=== PATIENT | male | born 1935 | race Caucasian/White ===

== ENCOUNTER 2018-05-17 05:26 | Inpatient (IN) | payer MEDICARE, BC ==
[2018-05-17] VITALS (23 sets, daily range): BP systolic 89–146; BP diastolic 53–97; PULSE 51–83; RESP 13–29; Ht 167.6 cm; Wt 84.0 kg
[~2018-05-17] VITALS: Ht 167.6 cm; Wt 84.0 kg
[2018-05-17] MEDS ORDERED: DOPamine-D5W 1.6 MG/ML 250 ML IV SCH (06:30)
[2018-05-17] MEDS ORDERED: ONDANSETRON 4 MG INJ IV PRN (06:30)
[2018-05-17] MEDS ORDERED: ACETAMINOPHEN 325 MG TAB PO PRN (06:30)
[2018-05-17] MEDS: DEXTROSE 5%-0.45% NACL 1,000 ML IV SCH ×2 (06:42→21:36)
[2018-05-17] MEDS: PANTOPRAZOLE 40 MG INJ IV SCH (06:44)
[2018-05-17] MEDS ORDERED: DEXTROSE 50% 50 ML SYRINGE IV PRN ×2 (07:00)
[2018-05-17] MEDS ORDERED: GLUCAGON 1 MG INJ IM PRN (07:00)
[2018-05-17] MEDS ORDERED: GLUCOSE GEL 15 GRAM TUBE BUCCAL PRN (07:00)
[2018-05-17] MEDS ORDERED: GLUCOSE GEL 15 GRAM TUBE PO PRN ×2 (07:00)
[2018-05-17] MEDS ORDERED: INSULIN ASPART [NOVOLOG] 3 ML PEN SC SCH (07:35)
[2018-05-17] MEDS: ALBUTEROL 0.083% (NEB) 2.5 MG/3 ML AMP HHN SCH ×4 (08:41→20:02)
[2018-05-17] MEDS ORDERED: COLLAGENASE 5 GM (UD JAR) TOP SCH ×2 (09:00)
[2018-05-17] MEDS: ALLOPURINOL 100 MG TAB PO SCH (09:00)
[2018-05-17] MEDS: CHOLECALCIFEROL 1,000 UNIT TAB PO SCH (09:00)
[2018-05-17] MEDS: TOBRAMYCIN 0.3% 5 ML OPH BOTH EYES SCH ×2 (09:20→21:37)
[2018-05-17] MEDS: MEROPENEM 1 GM/50ML(PMX) 50 ML IVPB SCH ×2 (09:21→21:33)
[2018-05-17] MEDS: ACETAZOLAMIDE 500 MG INJ IV SCH (09:21)
[2018-05-17] MEDS: BALSAM PERU/CASTOR OIL 60 GM TUBE TOP SCH ×2 (09:22→21:37)
--- NOTE | 2018-05-17 09:41 | CONS ---
Date/Time of Note Date/Time of Note DATE: 05/17/18 TIME: 09:37 Assessment/Plan Assessment/Plan Additional Assessment/Plan Chest x-ray showing cardiomegaly without any overt infiltrative process. Sternal wires are identified. ABG showing mild hypercapnic respiratory failure with hypoxemia. Patient is currently on BiPAP with backup rate of 18, 20/5 50% FiO2. Chem-7 panel and culture results are pending. Assessment and recommendations; 1. [facility] for [facility]cardia with history of atrial fibrillation with slow ventricular response. 2. Advanced dementia. 3. Difficult to rule out early sepsis. Patient currently on appropriate empiric antimicrobial regimen. 4. Hypercapnia and hypoxemia. Currently on BiPAP with adequate PO2 on ABG. 5. History of gout. 6. Mild anemia and thrombocytopenia. 7. Prior CABG. 8. Cardiomyopathy. Continue current supportive care. Further recommendations once other lab resul ts are obtained. CODE STATUS needs to be addressed with the family. Prognosis appears poor. Consultation Date/Type/Reason Admit Date/Time May 17, 2018 at 05:26 Date of Consultation: May 17, 2018 Type of Consult Pulmonary/critical care History of presenting illness; patient is a 83-year-old male who was transferred over to ICU from [facility] for hypoxemia and hypotension. Patient also developed bradycardia with history of atrial fibrillation. By the time I saw him, patient is on BiPAP and because of advanced dementia is unable to give any history whatsoever by himself. History was obtained from medical records. Past medical history; 1. Advanced dementia. 2. Likely underlying cardiomyopathy. 3. Prior CABG. 4. History of gout. Medications; reviewed. Allergies; none. Family history, social history, occupational history is not available. Review of system; unable to be obtained. General exam; elderly male, on BiPAP, unresponsive, currently in no distress. Past Medical History Medications Current Medications Dopamine HCl/ Dextrose 250 ml @ 6.405 mls/ hr TITRATE IV ; Start 05/17/18 at 06:30 Acetaminophen (Tylenol Tab) 650 mg Q6H PRN PO MILD PAIN(1-3)OR ELEVATED TEMP; Start 05/17/18 at 06:30 Acetazolamide (Diamox) 500 mg DAILY IV Last administered on 05/17/18at 09:21; Admin Dose 500 MG; Start 05/17/18 at 09:00 Albuterol (Proventil 0.083% (Neb)) 2.5 mg Q4H RESP THERAPY HHN Last administered on 05/17/18at 08:41; Admin Dose 2.5 MG; Start 05/17/18 at 09:00 Allopurinol (Zyloprim) 200 mg DAILY PO ; Start 05/17/18 at 09:00 Atorvastatin Calcium (Lipitor) 10 mg HS PO ; Start 05/17/18 at 21:00 Cholecalciferol (Vitamin D) 5,000 unit DAILY PO ; Start 05/17/18 at 09:00 Collagenase (Santyl) 1 applic DAILY TOP Last administered on 05/17/18at 09:21; Admin Dose 1 APPLIC; Start 05/17/18 at 09:00 Collagenase (Santyl) 1 applic BID TOP Last administered on 05/17/18at 09:21; Admin Dose 1 APPLIC; Start 05/17/18 at 09:00 Dextrose/Sodium Chloride 1,000 ml @ 65 mls/hr [id number] IV Last administered on 05/17/18at 06:42; Admin Dose 65 MLS/HR; Start 05/17/18 at 06:30 Diagnostic Test (Pha) (Accu-Chek) 1 ea 02 XX ; Start 05/18/18 at 02:00 Insulin Aspart (Novolog Insulin Pen) NOVOLOG *MILD* ALGORITHM WITH MEALS BEDTIME SC ; Start 05/17/18 at 07:35 Levothyroxine Sodium (Synthroid) 137 mcg DAILY@06 PO ; Start 05/18/18 at 06:00 Meropenem/Sodium Chloride 50 ml @ 100 mls/hr Q12 IVPB Last administered on 05/17/18at 09:21; Admin Dose 100 MLS/HR; Start 05/17/18 at 09:00 Ondansetron HCl (Zofran Inj) 4 mg Q4H PRN IV NAUSEA AND/OR VOMITING; Start 05/17/18 at 06:30 Pantoprazole (Protonix Iv) 40 mg DAILY@06 IV Last administered on 05/17/18at 06:44; Admin Dose 40 MG; Start 05/17/18 at 06:00 Tobramycin Sulfate (Tobrex 0.3% Oph Drop) 1 drop BID BOTH EYES Last administered on 05/17/18at 09:20; Admin Dose 1 DROP; Start 05/17/18 at 09:00 Miscellaneous Information 1 ea NOTE XX ; Start 05/17/18 at 07:00 Glucose (Glutose) 15 gm Q15M PRN PO DECREASED GLUCOSE; Start 05/17/18 at 07:00 Glucose (Glutose) 22.5 gm Q15M PRN PO DECREASED GLUCOSE; Start 05/17/18 at 07:00 Dextrose (D50w Syringe) 25 ml Q15M PRN IV DECREASED GLUCOSE; Start 05/17/18 at 07:00 Dextrose (D50w Syringe) 50 ml Q15M PRN IV DECREASED GLUCOSE; Start 05/17/18 at 07:00 Glucagon (Glucagen) 1 mg Q15M PRN IM DECREASED GLUCOSE; Start 05/17/18 at 07:00 Glucose (Glutose) 15 gm Q15M PRN BUCCAL DECREASED GLUCOSE; Start 05/17/18 at 07:00 Allergies: Coded Allergies: No Known Allergy (Unverified , 05/13/18) Exam/Review of Systems Vital Signs Vitals Vital Signs Date Temp Pulse Resp B/P (MAP) Pulse Ox O2 O2 Flow FiO2 Time Delivery Rate 05/17/18 51 08:14 05/17/18 100 50 06:46 05/17/18 97.6 20 146/97 BIPAP 06:00 (113) Exam H EENT exam; supple neck, positive JVD. Patient is on BiPAP. Edentulous. No neck masses. Pupils are small bilaterally. Chest exam; diminished breath sounds throughout. S1-S2 audible, irregular rhythm. Bradycardic. There is a well-healed sternal scar. Abdomen exam; soft, no organomegaly. Bowel sounds are audible. Extremity exam; no edema. Patient does have patchy ecchymosis. 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 DANA YODER May 17, 2018 09:41
--- NOTE | 2018-05-17 11:21 | NUR ---
SS NOTE: CONSULT RECEIVED ORDER FOR POLST ASSISTANCE. PT TRANSFERRED FROM [facility]. CURRENTLY ON BIPAP, ONLY RESPONDS TO PAIN. SW REVIEWED PT'S RECORDS. PT WAS AT [facility]. PRIOR TO GOING TO [facility]. KARLY CALLED AND SPOKE WITH RUBY AT [facility] WHO REPORTED THAT PT WAS AT THEIR FACILITY FOR 2 DAYS. STATED THAT PT WENT FROM THEM TO [facility] AND FROM THERE TO [facility]. PER RUBY, PT WAS A RESIDENT OF [facility] PRIOR TO GOING TO [facility]. KARLY CALLED AND SPOKE WITH SUNIL AT [facility] . PER SUNIL, PT HAD BEEN LIVING AT THEIR FACILITY FOR ABOUT 7-8 MONTHS. REPORTED THAT PT WAS ON A W/C BUT SOMEWHAT INDEPENDENT. REPORTED THAT HE WAS ALERT AND ORIENTED AT THAT TIME AND ABLE TO MAKE HIS OWN DECISIONS. SUNIL REPORTED THAT PT DID NOT HAVE FAMILY AND THE ONLY PERSON INVOLVED WAS HIS FRIEND, ELISA . KARLY CALLED AND SPOKE WITH PT'S FRIEND, ELISA. SHE REPORTED THAT SHE HAS KNOWN PT FOR OVER 10 YRS. STATED THAT PT DOES NOT HAVE LIVING RELATIVES. ELISA REPORTED THAT PT LIVED IN HIS OWN HOME BUT IT WAS INFESTED SO HE HAD TO MOVE OUT AND THEY HAD TO CLEAN OUT EVERYTHING. SHE REPORTED THAT PT HAD AN AHCD BUT DURING THE CLEAN OUT, SHE THINKS THE WORKERS MIGHT HAVE LOST THE AHCD. SHE REPORTED THAT BOTH HER AND HER SISTER HAVE HAD COMMUNICATIONS WITH PT RE: HIS WISHES WHERE PT HAS STATED THAT HE WOULD NOT WANT RESUSCITATION OR TO LIVE ON MACHINES. ELISA ALSO REPORTED AN INCIDENT WHERE SHE HAD TOLD PT ABOUT BEING ON NG TUBE AFTER HER OWN SURGERY AND PT HAD TOLD HER THAT HE WOULD NOT WANT THAT EITHER. KARLY THANKED ELISA FOR HER INVOLVEMENT WITH PT'S CARE AND THE INFO PROVIDED. INFORMED HER THAT KARLY WILL UPDATE DR. LANG ABOUT PT'S HISTORY AND THAT MD AND SW MIGHT CONTINUE TO CONTACT HER IF NEEDED. ELISA REPORTED THAT SHE IS WILLING TO BE INVOLVED IN PT'S CARE AND WILL REMAIN AVAILABLE NEEDED. KARLY UPDATED BILLY BLACK. DR. LANG WILL BE CONTACTED BY RN TO DISCUSS ABOUT PT'S CODE STATUS.
[2018-05-17] MEDS: INSULIN ASPART [NOVOLOG] 3 ML PEN SC SCH ×3 (13:00→21:42)
[2018-05-17] MEDS ORDERED: DIGOXIN 0.125 MG TAB GTB SCH (13:00)
--- NOTE | 2018-05-17 14:06 | NUR ---
WOUND CONSULT: 83 year old male admitted from [place] with Bradycardia per record. History of atrial fibrillation, dementia, GOUT, s/p CABG, anemia, and thrombocytopenia per medical history. WBC 7.5. H&H 10.7/35.1. Plt 145. Albumin 2.7. Patient on low air loss surface. Scott cath. Nasal cannula. ASSESSMENT: - Ecchymosis to bilateral hips, thigh, lateral abdomen, back and abdomen and shoulder and upper sacrum. - Coccyx stage 3 pressure injury. Condition present on admission. 0.6cmx0.3cmx0.3cm. Full thickness wound with visible pale yellow subcutaneous tissue. Periwound maceration. Scant serous drainage. No odor. - Left anterior lower extremity stage 2 pressure injury questionable IRMA hose related. [id number]. Flatten blister. No drainage. No odor. - Left posterior lower extremity stage 2 pressure injury questionable IRMA hose related. 1.5cmx1.5mtm8vh. Flatten blister. No drainage. No odor. - Left lateral lower extremity stage 2 pressure injury questionable IRMA hose related. 0.5cmx0.9aoh5tn. Flatten blister. No drainage. No odor. - Right posterior thigh stage 2 pressure injury njury questionable IRMA hose related. Linear partial thickness wound. No drainage. No odor. - Left knee bruise. - Left back of ear incision with sutures. Dry, clean, and intact. RECOMMENDATIONS: - Coccyx stage 3: Cleanse with normal saline. Pat dry. Apply Venelex ointment BID. Then, cover with foam border dressing. - Left anterior, posterior, lateral lower extremity, and right posterior thigh wounds: Cleanse with normal saline. Pat dry. Apply Venelex ointment BID. Then, cover with foam border dressing. - Left ear incision: [place] with Betadine daily. Leave open to air. - Low air loss surface. - Reposition every 2 hours. - Float heels off bed with pillows or Prevalon boots.. - Earmates for nasal cannula for protection. Assessed patient with Srinath BLACK. Discussed plan of care with RN. RN to obtain wound care recommendations from DYLAN PerezN RN CWOCN
--- NOTE | 2018-05-17 15:12 | NUR ---
SPOKE MD LANG REGARDING SOCIAL WORKERS NOTE FOR PATIENT'S FRIEND ELISA TO MAKE DECISIONS. DR LANG WANTS TO WAIT TILL AFTER THE WEEKEND TO EXPLORE FURTHER.
--- NOTE | 2018-05-17 15:23 | HP ---
DATE OF ADMISSION: 05/17/2018 REASON FOR ADMISSION: Bradycardia, encephalopathy, ongoing respiratory failure. HISTORY OF PRESENT ILLNESS: The patient is an unfortunate 83-year-old debilitated male wit h past medical history of vascular dementia, atrial fibrillation, CHF, coronary artery disease, statu s post coronary artery bypass graft, diabetes mellitus, hypertension, BPH, dyslipidemia who previousl y was on Coumadin. The patient was recently admitted to [facility] approximately 3 w eeks ago with supratherapeutic INR and body ecchymosis. Overall, he was stabilized and discharged an d then came back to [facility] again with ongoing respiratory failure. The patient w as diagnosed with Pseudomonas aeruginosa urinary tract infection and bacteremia. Unfortunately, yancy ent's respiratory failure continued and he was transferred to [facility] where he wa s placed intermittently on BiPAP. Unfortunately, patient has been noted to be more lethargic. He al so received a dose of Ativan while on BiPAP as he was anxious and trying to pull out the BiPAP ronn e. In the last day, patient was noted to be more bradycardic and he was on digoxin and Coreg which w ere held, but unfortunately early this morning, the patient became bradycardic down to the 30s, Dr. Radha arreguin, the on-call environmental projects advisor recommended to transfer to the ICU to start him on a dopamine drip. For now this patient remains lethargic and on BiPAP. I did speak to his friend who knows him more th an 20 years and stated that patient never want a lifelong sustaining treatment or to be on life suppo rt but there is no advance directive. The patient was transferred to the intensive care unit, was st arted on dopamine drip. During his stay at [facility] he was also noted to have hypoxemic hypercapnic re spiratory failure requiring BiPAP. The patient remains lethargic, difficult to arouse. The patient is currently in the intensive care unit. PAST MEDICAL HISTORY: Include vascular dementia, atrial fibrillation, CHF, hypothyroidism, coronary artery disease, status post CABG, diabetes mellitus, hypertension, BPH, gout and dyslipidemia. FAMILY HISTORY: Noncontributory. Patient does have a friend who is in touch with the patient and long s been visiting him frequently and states that the patient does not want lifelong sustaining aggressi ve measures. Overall goals are to keep him comfortable, but again, there is no advanced directive. ALLERGIES: No known drug allergies. REVIEW OF SYSTEMS: Per HPI. The patient is nonambulatory. Overall very weak, has also some dysphag ia. MEDICATIONS: The patient's current medications include: 1. Synthroid 137 mcg daily. 2. Accu-Chek as directed. 3. Lipitor 10 mg at bedtime. 4. Digoxin 0.125 daily to be placed on hold. 5. Diamox 500 IV daily. 6. Albuterol as directed. 7. Allopurinol 20 mg daily. 8. Vitamin D 5000 daily. 9. Santyl daily. 10. Merrem 500 IV q.12h. 11. Tobramycin b.i.d. ophthalmic. 12. Insulin Aspart per sliding scale. 13. Hypoglycemia protocol. 14. Dopamine as directed. 15. Tylenol p.r.n. 16. D5 as directed. 17. Zofran p.r.n. 18. Protonix 40 IV daily. PHYSICAL EXAMINATION: VITAL SIGNS: Temperature 97.6, pulse 69, respirations 20, blood pressure 143/97, saturation 100% on BiPAP, on 50% FIO2. GENERAL: Patient seen lethargic. BiPAP is in place, somewhat arousable, but very lethargic. The pa tient is pale. Some eye redness. Conjunctivae redness. CARDIOVASCULAR: S1 and S2 irregular. LUNGS: Decreased bilaterally with poor inspiratory effort. Basically, the BiPAP is doing most of hi s lung movement. ABDOMEN: Soft, nontender. EXTREMITIES: There is no clubbing, cyanosis, or edema. Scott to gravity. Patient does have a left scrotal mass. Dr. Ellis, the urologist has been following. It appears that no aggressive measures for that. LABORATORY DATA: Done yesterday. White count 9.1, hemoglobin 10.8, hematocrit 37, platelet count 14 1, neutrophils 75%, lymphocytes 9%. Chemistry: Sodium 142, potassium 3.8, chloride 99, bicarbonate 40, BUN is 38, creatinine 1.23, glucose 151, phosphorus was low at 2.0, alkaline phosphatase 144. BN P is high at 3900. Total protein 6.2, albumin 2.9. TSH is 4.0, free T4 1.2. Digoxin level document ed 05/15/2018 at 1.2. IMAGING: A chest x-ray done on 05/16/2018 shows cardiomegaly with mild increased vascular congestion , small bilateral basilar layering pleural effusion, prosthetic aortic valve with postsurgical change s, stable. NG tube going down into the stomach in good position, stable appearance when compared to the prior study. Chest ultrasound of 05/15/2018 shows trace bilateral pleural effusion. Testicular ultrasound shows a large extra-testicular heterogeneous vascular mass is seen lateral to the left kristal ticle measuring 6.4 b.i.d. 4.6 x 3.6 cm which appears to compress the testicle. This mass is poorly separable from the left epididymis. Differential diagnosis includes multiple etiologies. Normal vas cular flow is demonstrated to the left testicle. The right testicle appears normal with vascular thao w demonstrated. The right epididymis appears normal, large right hydrocele. Echocardiogram was perfo rmed as well on 05/14/2018, which revealed preserved ejection fraction 50% to 55%. There is elevated PA systolic pressure 38 mmHg, moderate tricuspid regurgitation. See report from Dr. Richard. ASSESSMENT AND PLAN: This is an 83-year-old unfortunate male with a history of vascular de mentia, debilitated state, atrial fibrillation, CHF, hypertension, hypothyroidism, diabetes mellitus, valvular heart disease, who presented with acute respiratory failure, hypoxemic hypercapnic respirat ory failure, recent urinary tract infection with bacteremia, organism Pseudomonas aeruginosa, now pre sented with ongoing bradycardia. 1. Respiratory. Continue BiPAP. Will obtain an arterial blood gas and another chest x-ray. Monito r for fluid overload state. Dr. Yen will be consulted. The patient is empirically on antibiotic s for urinary tract infection and bacteremia and also for possible pneumonia. 2. Cardiovascular. Hold the beta blockers and digoxin. Check digoxin level. The patient currently on dopamine drip. Cardiology to follow. The patient is off anticoagulation due to recent ecchymosi s, but weak. Patient can be placed at least on aspirin daily. 3. Infectious disease. The patient with urinary tract infection, bacteremia, to complete a course o f 14 days of antibiotics approximately 5 more days is needed. Dr. Joiner has been following. 4. Generalized weakness. The patient is nonambulatory and currently lethargic. Per discussion with his friend, she does not want him to have any feeding as patient did not want that, but we may have to do that as patient does not have advance directive and to continue his medical care he needs to ge t nutrition. Again, social economist will be consulted for further recommendations. 5. Dysphagia. Continue aspiration precautions. May feed him if more alert. 6. Hypothyroidism. TSH has been at goal. Continue Synthroid. 7. Diabetes mellitus. Continue Accu-Chek and titrate insulin up as needed. 8. Overall dehydration. Continue gentle hydration. 9. Left testicular mass. Dr. Ellis, the urologist has been following. We are opting for more con servative management. Patient also has BPH. The patient currently has a Scott to gravity. 10. Continue Protonix for GI prophylaxis. 11. Anemia. Transfuse p.r.n. 12. Continue ICU care while on dopamine drip. Continue to monitor respiratory status. Hopefully, w e can wean him off the BiPAP. 13. Avoid sedation agents due to patient's lethargy. We will follow. CONDITION: Guarded. The patient currently remains FULL CODE. We will follow. Dictated By: MAIN BARBOZA/MAMI Conf#: [id number] DID#: [id number] CC: MAIN LANG MD;*EndCC*
--- NOTE | 2018-05-17 15:51 | NUR ---
SS NOTE: F/U RN, BILLY STATED THAT PT'S FRIEND HAD A QUESTION AND REQUESTED FOR SW TO CALL HER. SW CALLED AND SPOKE WITH PT'S FRIEND, ELISA . ELISA REPORTED THAT SHE WILL TRY TO VISIT PT TODAY AROUND 1630 AND WANTED TO KNOW IF THERE IS ANY PAPERWORK THAT CAN BE COMPLETED RE: PT'S WISHES. SW EXPLAINED ABOUT AHCD VS POLST FORM. ELISA REPORTED THAT SHE CAN ASSIST PT IN COMPLETING AND SIGNING A POLST FORM WHEN PT IS MORE ALERT AND ORIENTED. SW INFORMED HER THAT A BLANK POLST FORM WILL BE LEFT IN PT'S CHART AND RN WILL BE ABLE TO PROVIDE IT TO HER WHEN SHE VISITS. ELISA ALSO REPORTED THAT SHE HAS MADE ARRANGEMENTS WITH A MORTUARY BECAUSE SHE WAS TOLD BY THE MORTUARY THAT IF THE HOSPITAL DOES NOT HAVE THE INFO THEN IF PT EXPIRES THEN THE BODY WILL BE TRANSFERRED TO THE [facility]. SW INFORMED ELISA THAT AT THAT TIME SHE WILL BE CONTACTED TO PROVIDE THE INFO AND PT'S BODY WILL BE TRANSFERRED TO THE [facility] [place] ONLY IF THERE IS NO FAMILY OR FRIENDS WHO ARE WILLING TO ASSIST WITH ARRANGEMENTS. ELISA VERBALIZED UNDERSTANDING. NO OTHER CONCERNS AT THIS TIME. SW WILL CONTINUE TO REMAIN AVAILABLE NEEDED.
--- NOTE | 2018-05-17 16:20 | CONS ---
Date/Time of Note Date/Time of Note DATE: 05/17/18 TIME: 16:19 Assessment/Plan Assessment/Plan Chief Complaint/Hosp Course Patient was transferred for from [place] secondary to bradycardia, he is lethargic, comfortable on nasal cannula. Temperature 97.7 pulse 64 respirations 15 blood pressure 89/57 saturation 100 on 3 L WBC 7.5 H&H 10.7 and 35.1 platelets 145 neutrophils 66.4 BUN 34 creatinine 1.17 Antimicrobials: Patient is on meropenem Physical examination: This is a chronically ill-appearing well-developed fragile elderly man who is lethargic, comfortable on nasal cannula and in no distress. Head atraumatic normocephalic, sclera nonicteric. Neck is supple. Chest rise symmetrical, breath sounds diminished bases, heart: S1-S2. Abdomen distended soft bowel sounds present extremities with trace edema Assessment: 1. Symptomatic bradycardia 2. Acute respiratory failure, CHF/pneumonia 3. Status post Pseudomonas bacteremia, blood cultures since May 08 negative 4. Encephalopathy 5. Coronary artery disease with a history of CABG and valve replacement Plan: Patient is clinically stable, he is off BiPAP, he is being seen by pulmonary and cardiology, continue on current antibiotics Consultation Date/Type/Reason Admit Date/Time May 17, 2018 at 05:26 Initial Consult Date 05/17/18 Type of Consult id Exam/Review of Systems Vital Signs Vitals Vital Signs Date Temp Pulse Resp B/P (MAP) Pulse Ox O2 O2 Flow FiO2 Time Delivery Rate 05/17/18 61 16:01 05/17/18 14 97 3.0 14:47 05/17/18 114/56 Nasal 14:00 (75) Cannula 05/17/18 97.3 12:00 05/17/18 30 11:40 Intake and Output 05/16/18 05/16/18 05/17/18 1515:00 23:00 07:00 IntakeIntake Total 16.25 ml BalanceBalance 16.25 ml KARINA LUNA NP May 17, 2018 16:20
--- NOTE | 2018-05-17 18:16 | CONS ---
Date/Time of Note Date/Time of Note DATE: 05/17/18 TIME: 18:06 Assessment/Plan Assessment/Plan Chief Complaint/Hosp Course 1. Atrial fibrillation with slow ventricular response and multiple pauses of less than 5 seconds and with 1 long pause of more than 20 seconds which happened during the NG tube placement 2. Hypercapnic respiratory failure 3. Status post Pseudomonas pneumonia and bacteremia 4. Encephalopathy 5. History of hypertension 6. History of possible coronary bypass graft 7. 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 Anemia Recommendations: Antibiotic management as per ID recommendation Supportive care and respiratory care as per pulmonary. I have asked the RN to decrease the oxygen since his O2 sat is 100% and to avoid hypercapnic respiratory failure. Be BiPAP as needed We will closely monitor on telemetry. Digoxin and Coreg has been discontinued. I have in fact stop the digoxin couple of days ago at [place] but is still he is disabled is 1.1 today We will continue to monitor him closely. CODE STATUS is full code for now but family/friend is considering changing it given his recent Pseudomonas bacteremia I am very concerned about considering pacemaker placement him. We will try to adjust the medication closely monitor for time being Dopamine as needed will be started We will continue with ICU care. More than 42 minutes of critical care time was for management treatment is critically patient excluding any procedures Thank you for his referral. We will continue to follow along with you SAMARIA AGUILAR MD [facility] Consultation Date/Type/Reason Admit Date/Time May 17, 2018 at 05:26 Date of Consultation: May 17, 2018 Type of Consult cv Reason for Consultation bradycardia Requesting Provider: MAIN LANG MD Hx of Present Illness Interventional cardiology consultation/critical care note Chief complaint reason for consult :bradycardic episodes HISTORY OF PRESENT ILLNESS: Thank you for his referral. History was obtained from the review of the old chart discussion with the physician staff. Patient also been known to me from previous admission to the [facility]. The patient is an unfortunate 83-year-old debilitated male with past medical history of vascular dementia, atrial fibrillation, CHF, coronary artery disease vs valvular heart disease, status post coronary artery bypass graft/probably aortic valve replacement, diabetes mellitus, hypertension, BPH, dyslipidemia who previously was on Coumadin. The patient was recently admitted to [facility] approximately 3 weeks ago with supratherapeutic INR and body ecchymosis. Overall, he was stabilized and discharged and then came back to [facility] again with ongoing respiratory failure. The patient was diagnosed with Pseudomonas aeruginosa urinary tract infection and bacteremia. Unfortunately, patient's respiratory failure continued and he was transferred to [facility] where he was placed intermittently on BiPAP. Unfortunately, patient has been noted to be more lethargic. He also received a dose of Ativan while on BiPAP as he was anxious and trying to pull out the BiPAP machine. In the last day, patient was noted to be more bradycardic and he was on digoxin and Coreg which were held, but unfortunately early this morning, the patient became bradycardic down to the 30s, This I have discussed the case with the RN who took care of the patient at the other hospital. It appeared that during the NG tube placement patient has had A ventricular asystole episode of more than 20 seconds after which patient was transferred to ICU. The patient is currently in the intensive care unit. He remains nonverbal. He has been placed on BiPAP however currently off of BiPAP PAST MEDICAL HISTORY: Include vascular dementia, atrial fibrillation, CHF, hypothyroidism, coronary artery disease, status post CABG vs aortic valve replacement, diabetes mellitus, hypertension, BPH, gout and dyslipidemia. FAMILY HISTORY: Noncontributory. Patient does have a friend who is in touch with the patient and has been visiting him frequently and states that the patient does not want lifelong sustaining aggressive measures. Overall goals ar e to keep him comfortable, but again, there is no advanced directive. ALLERGIES: No known drug allergies. Social history: No active smoking REVIEW OF SYSTEMS: Per HPI. The patient is nonambulatory. Overall very weak, has also some dysphagia. MEDICATIONS: The patient's current medications include: 1. Synthroid 137 mcg daily. 2. Accu-Chek as directed. 3. Lipitor 10 mg at bedtime. 4. Digoxin 0.125 daily to be placed on hold. 5. Diamox 500 IV daily. 6. Albuterol as directed. 7. Allopurinol 20 mg daily. 8. Vitamin D 5000 daily. 9. Santyl daily. 10. Merrem 500 IV q.12h. 11. Tobramycin b.i.d. ophthalmic. 12. Insulin Aspart per sliding scale. 13. Hypoglycemia protocol. 14. Dopamine as directed. 15. Tylenol p.r.n. 16. D5 as directed. 17. Zofran p.r.n. 18. Protonix 40 IV daily. Review of system as above only the basic was obtained Past Medical History Medications Current Medications Dopamine HCl/ Dextrose 250 ml @ 6.405 mls/ hr TITRATE IV ; Start 05/17/18 at 06:30 Acetaminophen (Tylenol Tab) 650 mg Q6H PRN PO MILD PAIN(1-3)OR ELEVATED TEMP; Start 05/17/18 at 06:30 Acetazolamide (Diamox) 500 mg DAILY IV Last administered on 05/17/18at 09:21; Admin Dose 500 MG; Start 05/17/18 at 09:00 Albuterol (Proventil 0.083% (Neb)) 2.5 mg Q4H RESP THERAPY HHN Last administered on 05/17/18at 16:36; Admin Dose 2.5 MG; Start 05/17/18 at 09:00 Allopurinol (Zyloprim) 200 mg DAILY PO ; Start 05/17/18 at 09:00 Atorvastatin Calcium (Lipitor) 10 mg HS PO ; Start 05/17/18 at 21:00 Cholecalciferol (Vitamin D) 5,000 unit DAILY PO ; Start 05/17/18 at 09:00 Dextrose/Sodium Chloride 1,000 ml @ 65 mls/hr [id number] IV Last administered on 05/17/18at 06:42; Admin Dose 65 MLS/HR; Start 05/17/18 at 06:30 Levothyroxine Sodium (Synthroid) 137 mcg DAILY@06 PO ; Start 05/18/18 at 06:00 Meropenem/Sodium Chloride 50 ml @ 100 mls/hr Q12 IVPB Last administered on 05/17/18at 09:21; Admin Dose 100 MLS/HR; Start 05/17/18 at 09:00 Ondansetron HCl (Zofran Inj) 4 mg Q4H PRN IV NAUSEA AND/OR VOMITING; Start 05/17/18 at 06:30 Pantoprazole (Protonix Iv) 40 mg DAILY@06 IV Last administered on 05/17/18at 06:44; Admin Dose 40 MG; Start 05/17/18 at 06:00 Tobramycin Sulfate (Tobrex 0.3% Oph Drop) 1 drop BID BOTH EYES Last a dministered on 05/17/18at 09:20; Admin Dose 1 DROP; Start 05/17/18 at 09:00 Miscellaneous Information 1 ea NOTE XX ; Start 05/17/18 at 07:00 Glucose (Glutose) 15 gm Q15M PRN PO DECREASED GLUCOSE; Start 05/17/18 at 07:00 Glucose (Glutose) 22.5 gm Q15M PRN PO DECREASED GLUCOSE; Start 05/17/18 at 07:00 Dextrose (D50w Syringe) 25 ml Q15M PRN IV DECREASED GLUCOSE; Start 05/17/18 at 07:00 Dextrose (D50w Syringe) 50 ml Q15M PRN IV DECREASED GLUCOSE; Start 05/17/18 at 07:00 Glucagon (Glucagen) 1 mg Q15M PRN IM DECREASED GLUCOSE; Start 05/17/18 at 07:00 Glucose (Glutose) 15 gm Q15M PRN BUCCAL DECREASED GLUCOSE; Start 05/17/18 at 07:00 Insulin Aspart (Novolog Insulin Pen) NOVOLOG *MILD* ALGORI... Q4 SC ; Start 05/17/18 at 13:00 Allergies: Coded Allergies: No Known Allergy (Unverified , 05/13/18) Social History Smoking Status: Unknown if ever smoked Exam/Review of Systems Vital Signs Vitals Vital Signs Date Temp Pulse Resp B/P (MAP) Pulse Ox O2 O2 Flow FiO2 Time Delivery Rate 05/17/18 2.0 17:41 05/17/18 62 14 98 16:36 05/17/18 114/56 Nasal 14:00 (75) Cannula 05/17/18 97.3 12:00 05/17/18 30 11:40 Intake and Output 05/16/18 05/16/18 05/17/18 1515:00 23:00 07:00 IntakeIntake Total 16.25 ml BalanceBalance 16.25 ml Exam General: Elderly looking gentleman. On oxygen HEENT: NC/AT. Eyes are closed NECK:. no stridor. CV: Irregularly irregular systolic murmur; no gallop or rubs. PULM: no wheezing + rhonchi. GI: SOFT, NT, ND, no rebound or guarding Extremity: +B/L LE edema. no clubbing. neuro: Lethargic. Nonverbal. Psych: calm rectal: deferred : normal Derm: Multiple diffuse ecchymosis Echocardiogram done 05/14/2018 which was personally reviewed shows: There is severe enlargement of left atrium. There is mild enlargement of right atrium. Lower limits of normal systolic function. Normal left ventricular cavity size. Mild concentric left ventricular hypertrophy. Ejection fraction is visually estimated at 50-55 %. Moderate mitral leaflet calcification. Severe mitral annular calcification. Trace mitral regurgitation. Mild to moderate mitral stenosis. Mitral valve Max Velocity 2.40 m/sec. MaxPG 22.00 mmHg. MeanPG 7.00 mmHg. Aortic valve not well visualized. Aortic Valve Bio Prosthesis. Aortic valve Max velocity 2.55 m/sec. Max PG 26.00 mmHg. Mean PG 13.00 mmHg. Mild aortic valve regurgitation. Normal appearance of the tricuspid valve. Estimated peak PA systolic pressure 78 mmHg. There is moderate tricuspid regurgitation. Inferior vena cava without respiratory collapse, however, patient on ventilator. Normal pericardium with no significant pericardial effusion. Chest x-ray shows: Cardiomegaly with calcified atherosclerosis in the aorta. Central pulmonary vascular congestion and interstitial prominence in both lungs. Stable bilateral perihilar and lower lung infiltrates with small pleural effusions. Elevated right hemidiaphragm. RPTAT: SAMARIA RILEY MD May 17, 2018 18:16
--- NOTE | 2018-05-17 18:54 | NUR ---
EOSS: PATIENT REMAINED STABLE THIS SHIFT. A+O X2 BUT INCONSISTENT THROUGH THE SHIFT. PATIENT TAKEN OFF BIPAP AT 1130 AND COGNITION IMPROVED SINCE THEN. PATIENTS HR WOULD JUMANA DOWN TO 20S BUT WOULD GO BACK UP AFTER A FEW SECS. 3.8 SECS PAUSE AT 1344 NOTED. PATIENT CONTINUES TO BE AFIB WITH RVR WITH BRADCARDIA. PATIENT'S FRIEND AGATA CAME TO VISIT AND SPOKE TO NATY THE TRIP MOTOR OPERATOR REGARDING POLST PAPER WORK. PATIENT CHECKED ON HOURLY AND PRN BY NURSING STAFF.
[2018-05-17] MEDS: ATORVASTATIN 10 MG TAB PO SCH (21:00)
--- NOTE | 2018-05-17 23:09 | NUR ---
DOPAMINE DRIP STARTED AT 2 MCG/KG/MIN FOR FREQUENT EPISODES OF BRADYCARDIA OR A. FIB. W/ FREQUENT PAUSES.HR. < 35 BPM.
[2018-05-18] VITALS (23 sets, daily range): BP systolic 89–106; BP diastolic 40–65; PULSE 61–89; RESP 14–28
[2018-05-18] MEDS: INSULIN ASPART [NOVOLOG] 3 ML PEN SC SCH ×6 (01:00→20:55)
[2018-05-18] MEDS: ALBUTEROL 0.083% (NEB) 2.5 MG/3 ML AMP HHN SCH ×6 (01:17→20:29)
[2018-05-18] MEDS ORDERED: ACCU-CHEK XX SCH (02:00)
[2018-05-18] MEDS: LEVOTHYROXINE 137 MCG TAB PO SCH (05:37)
[2018-05-18] MEDS: PANTOPRAZOLE 40 MG INJ IV SCH (05:40)
[2018-05-18] MEDS: CHOLECALCIFEROL 1,000 UNIT TAB PO SCH (09:00)
[2018-05-18] MEDS: ALLOPURINOL 100 MG TAB PO SCH (09:00)
--- NOTE | 2018-05-18 09:25 | NUR ---
NUTRITION NOTE: Pt is noted with multiple pressure injuries, including stage 2-stage 3's. Currently NPO, pending CUTTING DEPARTMENT SUPERVISOR evaluation. Will monitor for ability for PO advancements. If unable to safely take PO over next 2-3 days, may need to alternative form of nutrition. RD RECOMMENDATIONS: 1. If medically feasible, oral diet per CUTTING DEPARTMENT SUPERVISOR recs. 2. Rec to initiate daily MVI, Vit C therapy; rec zinc sulfate x 10 days.
--- NOTE | 2018-05-18 09:25 | CONS ---
Date/Time of Note Date/Time of Note DATE: 05/18/18 TIME: 09:23 Assessment/Plan Assessment/Plan Additional Assessment/Plan Assessment recommendations; 1. Patient with history of chronic type II respiratory failure and atrial fibrillation admitted for bradycardia with improvement in heart rate to the 70s. Patient has remained hemodynamically stable. 2. Underlying dementia. There is improvement in mental status today. 3. Currently no evidence of any ongoing infective process. 4. Anemia and thrombocytopenia. 5. Hypothyroidism. 6. Prior CABG. 7. Underlying cardiomyopathy. Continue on supportive care. Consultation Date/Type/Reason Admit Date/Time May 17, 2018 at 05:26 Initial Consult Date 05/17/18 Type of Consult Pulmonary/critical care History of presenting illness; patient is a 83-year-old male who was transferred over to ICU from [facility] for hypoxemia and hypotension. Patient also developed bradycardia with history of atrial fibrillation. By the time I saw him, patient is on BiPAP and because of advanced dementia is unable to give any history whatsoever by himself. History was obtained from medical records. Past medical history; 1. Advanced dementia. 2. Likely underlying cardiomyopathy. 3. Prior CABG. 4. History of gout. Medications; reviewed. Allergies; none. Family history, social history, occupational history is not available. Review of system; unable to be obtained. General exam; elderly male, on BiPAP, unresponsive, currently in no distress. Requesting Provider: MANI LANG MD 24 HR Interval Summary Free Text/Dictation Patient's condition has improved. Patient is more awake and responsive appropriately. Heart rate has stabilized in the 70s. Remains in atrial fibrillation though. General exam; elderly male, awake, currently no distress. On 3 L nasal cannula. Exam/Review of Systems Vital Signs Vitals Vital Signs Date Temp Pulse Resp B/P (MAP) Pulse Ox O2 O2 Flow FiO2 Time Delivery Rate 05/18/18 84 21 97/53 (68) 99 Nasal 3.0 06:00 Cannula 05/18/18 97.8 04:00 05/17/18 30 11:40 Intake and Output 05/17/18 05/17/18 05/18/18 1515:00 23:00 07:00 IntakeIntake Total 570 ml 505 ml 493.4 ml OutputOutput Total 660 ml 370 ml 250 ml BalanceBalance -90 ml 135 ml 243.4 ml Exam H HEENT exam; supple neck, no JVD. No lymphadenopathy. Midline trachea. No thyromegaly. Patient has multiple carious teeth. Pupils are small bilaterally. Chest exam; diminished but clear breath sounds bilaterally S1-S2 audible, no murmurs. There is a well-healed sternal scar. Irregular rhythm. Abdomen exam; soft, nontender. Nondistended. No organomegaly. Bowel sounds audible. Extremity exam; edema clubbing. FRONT LINE LEADER exam; patient is awake and responsive able to verbalize somewhat. Exhibiting generalized weakness . DANA YODER May 18, 2018 09:25
[2018-05-18] MEDS: BALSAM PERU/CASTOR OIL 60 GM TUBE TOP SCH ×2 (09:41→20:55)
[2018-05-18] MEDS: MEROPENEM 1 GM/50ML(PMX) 50 ML IVPB SCH ×2 (09:47→20:52)
[2018-05-18] MEDS: ACETAZOLAMIDE 500 MG INJ IV SCH (09:47)
[2018-05-18] MEDS: TOBRAMYCIN 0.3% 5 ML OPH BOTH EYES SCH ×2 (09:47→20:52)
--- NOTE | 2018-05-18 09:48 | CONS ---
Date/Time of Note Date/Time of Note DATE: 05/18/18 TIME: 09:45 Consult Date/Type/Reason Admit Date/Time May 17, 2018 at 05:26 Initial Consult Date 05/17/18 Type of Consultation: cv Requesting Provider: MAIN LANG MD Subjective cardiology follow up progress note S: Discussed with the staff on telemetry was reviewed. Patient remains in atrial fibrillation mostly with slow ventricular response. He has had multiple pauses the longest one was 4.9 seconds Has been placed back on dopamine drip although is a very low dose He is more awake and is able to answer but denies any chest pain or pressure to me still confused Objective: General: Elderly looking gentleman. On oxygen HEENT: NC/AT. Eyes are closed NECK:. no stridor. CV: Irregularly irregular systolic murmur; no gallop or rubs. PULM: no wheezing + rhonchi. GI: SOFT, NT, ND, no rebound or guarding Extremity: +B/L LE edema. no clubbing. neuro: Drowsy but appears to be oriented x1 responds appropriately Psych: calm rectal: deferred : normal Derm: Multiple diffuse ecchymosis Echocardiogram done 05/14/2018 which was personally reviewed shows: There is severe enlargement of left atrium. There is mild enlargement of right atrium. Lower limits of normal systolic function. Normal left ventricular cavity size. Mild concentric left ventricular hypertrophy. Ejection fraction is visually estimated at 50-55 %. Moderate mitral leaflet calcification. Severe mitral annular calcification. Trace mitral regurgitation. Mild to moderate mitral stenosis. Mitral valve Max Velocity 2.40 m/sec. MaxPG 22.00 mmHg. MeanPG 7.00 mmHg. Aortic valve not well visualized. Aortic Valve Bio Prosthesis. Aortic valve Max velocity 2.55 m/sec. Max PG 26.00 mmHg. Mean PG 13.00 mmHg. Mild aortic valve regurgitation. Normal appearance of the tricuspid valve. Estimated peak PA systolic pressure 78 mmHg. There is moderate tricuspid regurgitation. Inferior vena cava without respiratory collapse, however, patient on ventilator. Normal pericardium with no significant pericardial effusion. Chest x-ray shows: Cardiomegaly with calcified atherosclerosis in the aorta. Central pulmonary vascular congestion and interstitial prominence in both lungs. Stable bilateral perihilar and lower lung infiltrates with small pleural effusions. Elevated right hemidiaphragm. Objective Vital Signs Date Temp Pulse Resp B/P (MAP) Pulse Ox O2 O2 Flow FiO2 Time Delivery Rate 05/18/18 84 21 97/53 (68) 99 Nasal 3.0 06:00 Cannula 05/18/18 97.8 04:00 05/17/18 30 11:40 Intake and Output 05/17/18 05/17/18 05/18/18 1515:00 23:00 07:00 IntakeIntake Total 570 ml 505 ml 493.4 ml OutputOutput Total 660 ml 370 ml 250 ml BalanceBalance -90 ml 135 ml 243.4 ml Results/Medications Result Diagram: 05/18/18 0432 05/18/18 0432 Results 24 hrs Laboratory Tests Test 05/17/18 13:07 05/17/18 18:38 05/17/18 21:40 05/18/18 01:21 Bedside Glucose 137 131 141 129 Test 05/18/18 04:32 05/18/18 05:35 05/18/18 08:42 White Blood 7.1 Count Red Blood Count 3.16 L Hemoglobin 10.5 L Hematocrit 34.9 L Mean Corpuscular 110.4 H Volume Mean Corpuscular 33.2 H Hemoglobin Mean Corpuscular 30.1 L Hemoglobin Sharita nt Red Cell 19.9 H Distribution Width Platelet Count 146 Mean Platelet 11.8 H Volume Immature 6.800 H Granulocytes % Neutrophils % 66.9 Lymphocytes % 11.9 L Monocytes % 9.1 Eosinophils % 4.0 Basophils % 1.3 Nucleated Red 0.6 H Blood Cells % Immature 0.480 H Granulocytes # Neutrophils # 4.7 Lymphocytes # 0.8 Monocytes # 0.6 Eosinophils # 0.3 Basophils # 0.1 Nucleated Red 0.0 Blood Cells # Sodium Level 142 Potassium Level 4.0 Chloride Level 105 Carbon Dioxide 36 H Level Anion Gap 1 L Blood Urea 33 H Nitrogen Creatinine 1.23 Est Glomerular Filtrat Rate mL/min Glucose Level 122 Calcium Level 9.3 Phosphorus Level 3.3 Magnesium Level 1.9 Bedside Glucose 122 123 Medications Current Medications Dopamine HCl/ Dextrose 250 ml @ 6.405 mls/ hr TITRATE IV Last administered on 05/17/18at 23:09; Admin Dose 6.405 MLS/HR; Start 05/17/18 at 06:30 Acetaminophen (Tylenol Tab) 650 mg Q6H PRN PO MILD PAIN(1-3)OR ELEVATED TEMP; Start 05/17/18 at 06:30 Acetazolamide (Diamox) 500 mg DAILY IV Last administered on 05/17/18at 09:21; Admin Dose 500 MG; Start 05/17/18 at 09:00 Albuterol (Proventil 0.083% (Neb)) 2.5 mg Q4H RESP THERAPY HHN Last administered on 05/18/18at 05:06; Admin Dose 2.5 MG; Start 05/17/18 at 09:00 Allopurinol (Zyloprim) 200 mg DAILY PO ; Start 05/17/18 at 09:00 Atorvastatin Calcium (Lipitor) 10 mg HS PO ; Start 05/17/18 at 21:00 Cholecalciferol (Vitamin D) 5,000 unit DAILY PO ; Start 05/17/18 at 09:00 Dextrose/Sodium Chloride 1,000 ml @ 65 mls/hr [id number] IV Last administered on 05/17/18at 21:36; Admin Dose 65 MLS/HR; Start 05/17/18 at 06:30 Levothyroxine Sodium (Synthroid) 137 mcg DAILY@06 PO ; Start 05/18/18 at 06:00 Meropenem/Sodium Chloride 50 ml @ 100 mls/hr Q12 IVPB Last administered on 05/17/18at 21:33; Admin Dose 100 MLS/HR; Start 05/17/18 at 09:00 Ondansetron HCl (Zofran Inj) 4 mg Q4H PRN IV NAUSEA AND/OR VOMITING; Start 05/17/18 at 06:30 Pantoprazole (Protonix Iv) 40 mg DAILY@06 IV Last administered on 05/18/18at 05:40; Admin Dose 40 MG; Start 05/17/18 at 06:00 Tobramycin Sulfate (Tobrex 0.3% Oph Drop) 1 drop BID BOTH EYES Last adm inistered on 05/17/18at 21:37; Admin Dose 1 DROP; Start 05/17/18 at 09:00 Miscellaneous Information 1 ea NOTE XX ; Start 05/17/18 at 07:00 Glucose (Glutose) 15 gm Q15M PRN PO DECREASED GLUCOSE; Start 05/17/18 at 07:00 Glucose (Glutose) 22.5 gm Q15M PRN PO DECREASED GLUCOSE; Start 05/17/18 at 0 7:00 Dextrose (D50w Syringe) 25 ml Q15M PRN IV DECREASED GLUCOSE; Start 05/17/18 at 07:00 Dextrose (D50w Syringe) 50 ml Q15M PRN IV DECREASED GLUCOSE; Start 05/17/18 at 07:00 Glucagon (Glucagen) 1 mg Q15M PRN IM DECREASED GLUCOSE; Start 05/17/18 at 07:00 Glucose (Glutose) 15 gm Q15M PRN BUCCAL DECREASED GLUCOSE; Start 05/17/18 at 07:00 Insulin Aspart (Novolog Insulin Pen) NOVOLOG *MILD* ALGORI... Q4 SC Last administered on 05/17/18at 21:42; Admin Dose 1 UNIT; Start 05/17/18 at 13:00 Assessment/Plan Chief Complaint/Hosp Course 1. Atrial fibrillation with slow ventricular response and multiple pauses of less than 5 seconds and with 1 long pause of more than 20 seconds which happened during the NG tube placement 2. Hypercapnic respiratory failure 3. Status post Pseudomonas pneumonia and bacteremia 4. Encephalopathy 5. History of hypertension 6. History of possible coronary bypass graft 7. 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 Anemia Recommendations: Antibiotic management as per ID recommendation Supportive care and respiratory care as per pulmonary. We will closely monitor on telemetry. Digoxin and Coreg has been discontinued. I have in fact stop the digoxin couple of days ago at [place] but is still most recent dig leve was 1.1 will repeat dig level tomorrow We will continue to monitor him closely. CODE STATUS is full code for now but family/friend is considering changing it given his recent Pseudomonas bacteremia I am very concerned about considering pacemaker placement him. We will try to adjust the medication closely monitor for time being Dopamine as needed will be started We will continue with ICU care. Thank you for his referral. We will continue to follow along with you SAMARIA AGUILAR MD [facility] SAMARIA AGUILAR MD May 18, 2018 09:48
[2018-05-18] MEDS: DEXTROSE 5%-0.45% NACL 1,000 ML IV SCH ×2 (12:50→15:00)
--- NOTE | 2018-05-18 16:28 | CONS ---
Date/Time of Note Date/Time of Note DATE: 05/18/18 TIME: 16:27 Assessment/Plan Assessment/Plan Chief Complaint/Hosp Course 1130 Awake, responsive, no fevers over night Antimicrobials: Meropenem Physical examination: This is a chronically ill-appearing well-developed fragile elderly man who is lethargic, comfortable on nasal cannula and in no distress. Head atraumatic normocephalic, sclera nonicteric. Neck is supple. Chest rise symmetrical, breath sounds diminished bases, heart: S1-S2. Abdomen distended soft bowel sounds present extremities with trace edema Assessment: 1. Symptomatic bradycardia 2. Acute respiratory failure, CHF/pneumonia 3. Status post Pseudomonas bacteremia, blood cultures since May 08 negative 4. Encephalopathy 5. Coronary artery disease with a history of CABG and valve replacement Plan: Clinically improving, he is being seen by pulmonary and cardiology, continue antibiotics Consultation Date/Type/Reason Admit Date/Time May 17, 2018 at 05:26 Initial Consult Date 05/17/18 Type of Consult id Requesting Provider: MAIN LANG MD Exam/Review of Systems Vital Signs Vitals Vital Signs Date Temp Pulse Resp B/P (MAP) Pulse Ox O2 O2 Flow FiO2 Time Delivery Rate 05/18/18 72 18 98 Nasal 3.0 13:32 Cannula 05/18/18 92/62 (72) 10:00 05/18/18 98.0 08:00 05/17/18 30 11:40 Intake and Output 05/17/18 05/17/18 05/18/18 1414:59 22:59 06:59 IntakeIntake Total 521.25 ml 570 ml 493.4 ml OutputOutput Total 660 ml 330 ml 290 ml BalanceBalance -138.75 ml 240 ml 203.4 ml KARINA LUNA NP May 18, 2018 16:28
[2018-05-18] MEDS: ATORVASTATIN 10 MG TAB PO SCH (20:53)
[2018-05-19] VITALS (55 sets, daily range): BP systolic 73–130; BP diastolic 41–89; PULSE 36–80; RESP 15–33
[2018-05-19] MEDS: ALBUTEROL 0.083% (NEB) 2.5 MG/3 ML AMP HHN SCH ×2 (00:18→04:12)
[2018-05-19] MEDS: INSULIN ASPART [NOVOLOG] 3 ML PEN SC SCH ×6 (00:44→20:51)
[2018-05-19] MEDS: DEXTROSE 5%-0.45% NACL 1,000 ML IV SCH (04:33)
[2018-05-19] MEDS: LEVOTHYROXINE 137 MCG TAB PO SCH (06:00)
[2018-05-19] MEDS: PANTOPRAZOLE 40 MG INJ IV SCH (06:10)
--- NOTE | 2018-05-19 08:55 | CONS ---
Date/Time of Note Date/Time of Note DATE: 05/19/18 TIME: 08:52 Assessment/Plan Assessment/Plan Additional Assessment/Plan Patient is currently on dopamine at 1 collette per kilogram per minute. Assessment recommendations; 1. Patient transferred over from [facility] because of severe bradycardia with history of atrial fibrillation. Heart rate holding in the 70s on low-dose dopamine drip. Patient has remained hemodynamically stable. 2. Other comorbidities include history of hypothyroidism, prior CABG. 3. Anemia and thrombocytopenia. 4. History of gout. 5. Markedly improved encephalopathy. 6. Possibly some element of pneumonia. Continue with supportive care. Wean off dopamine as tolerated. Obtain follow- up chest x-ray. Further recommendations per landscaper. Consultation Date/Type/Reason Admit Date/Time May 17, 2018 at 05:26 Initial Consult Date 05/17/18 Type of Consult Pulmonary/critical care History of presenting illness; patient is a 83-year-old male who was transferred over to ICU from [facility] for hypoxemia and hypotension. Patient also developed bradycardia with history of atrial fibrillation. By the time I saw him, patient is on BiPAP and because of advanced dementia is unable to give any history whatsoever by himself. History was obtained from medical records. Past medical history; 1. Advanced dementia. 2. Likely underlying cardiomyopathy. 3. Prior CABG. 4. History of gout. Medications; reviewed. Allergies; none. Family history, social history, occupational history is not available. Review of system; unable to be obtained. General exam; elderly male, on BiPAP, unresponsive, currently in no distress. Requesting Provider: MAIN LANG MD 24 HR Interval Summary Free Text/Dictation Patient's condition is markedly improved. Patient is completely awake and alert. Has remained hemodynamically stable. Requiring low-dose dopamine for bradycardia. General exam; elderly male, awake alert, currently no distress. Talking. Patient able to have appropriate conversation. Exam/Review of Systems Vital Signs Vitals Vital Signs Date Temp Pulse Resp B/P (MAP) Pulse Ox O2 O2 Flow FiO2 Time Delivery Rate 05/19/18 41 06:57 05/19/18 18 103/53 100 06:00 (70) 05/19/18 97.9 05:00 05/19/18 Nasal 3.0 04:12 Cannula 05/17/18 30 11:40 Intake and Output 05/18/18 05/18/18 05/19/18 1515:00 23:00 07:00 IntakeIntake Total 270.6 ml 394.15 ml 477.4 ml OutputOutput Total 320 ml 250 ml 230 ml BalanceBalance -49.4 ml 144.15 ml 247.4 ml Exam HEENT exam; supple neck, no JVD. No lymphadenopathy. Midline trachea. No thyromegaly. Patient has multiple carious teeth. Chest exam; diminished breath sounds bilaterally. S1-S2 audible, no murmurs. Irregular rhythm. Abdomen exam; soft, no organomegaly. Bowel sounds audible. Extremity exam; no peripheral edema or clubbing. FLOOR CASHIER exam; no focal motor deficit. DANA YODER May 19, 2018 08:55
[2018-05-19] MEDS: MEROPENEM 1 GM/50ML(PMX) 50 ML IVPB SCH ×2 (09:15→20:49)
[2018-05-19] MEDS: BALSAM PERU/CASTOR OIL 60 GM TUBE TOP SCH ×2 (09:16→20:50)
[2018-05-19] MEDS: TOBRAMYCIN 0.3% 5 ML OPH BOTH EYES SCH ×2 (09:16→20:49)
[2018-05-19] MEDS: ACETAZOLAMIDE 500 MG INJ IV SCH (09:16)
[2018-05-19] MEDS: ALLOPURINOL 100 MG TAB PO SCH (09:17)
[2018-05-19] MEDS: CHOLECALCIFEROL 1,000 UNIT TAB PO SCH (09:17)
--- NOTE | 2018-05-19 09:33 | NUR ---
Bedside swallow evaluation completed: Patient is an 83-year-old male with past medical history of vascular dementia, atrial fibrillation, CHF, coronary artery disease, status post coronary artery bypass graft, diabetes mellitus, hypertension, BPH, and dyslipidemia. The patient was recently admitted to [facility] with supratherapeutic INR and body ecchymosis. After discharge he returned to [facility] with ongoing respiratory failure. The patient was diagnosed with pseudomonas aeruginosa urinary tract infection and bacteremia. Unfortunately, patient's respiratory failure continued and he was transferred to [facility] where he was placed intermittently on BiPAP. He was transferred to ICU to initiate a dopamine drip after he was noted to be more bradycardic. The patient is currently NPO. He has partial set of natural dentition in place. Oral cavity is dry. Patient is lethargic, but responsive. Follows ~50% 1 step instructions.He benefits from modeling and tactile prompting. Oral [facility] exam: Moderate oral motor weakness. Reduced coordination of volitional movements, impacted by cognition. Hyolaryngeal excursion is WFL,per palpation. Congested cough. Trials: Ice chips, thin liquids via spoon, ntl via spoon and cup, pureed solids Reduced coordination when removing bolus from spoon and cup, with reduced coordination of breath as well. Reduced bolus formation and control within the oral cavity. Suspect premature spillage with liquids,worse with thin than nectar. No anterior labial spillage. Mild oral residue with liquids and pureed solids,cleared with repeat swallow. With pureed solids,benefits from liquid wash. Suspect delayed initiation of the pharyngeal swallow, worse with liquids than solids. Immediate cough with thin liquids. Discontinued thin trials. Tolerated ice chips 90% without s/s aspiration, with wet vocal quality and throat clearing ~10%. Tolerated ~80% NTL without s/s aspiration,throat clearing and wet vocal quality with 20%. Benefits from small tsp presentation instead of cup to increase safety and tolerance. Pureed solids tolerated ~80% without s/s aspiration, wet vocal quality noted ~20%. Suspect pharyngeal residue with pureed solids.Benefits from alternating solids/ liquids, small bites, verbal prompts for repeat swallows with pureed solids. Recommendations: NPO with NTL via tsp or ice chips for oral gratification only Meds crushed in apple sauce: provide small bites and alternate bites with sip of NTL to clear possible residue. Maintain aspiration precautions and oral care guidelines Hold all PO if patient is not alert Sit upright at 90 degrees for PO intake ST to f/u
--- NOTE | 2018-05-19 09:46 | PN ---
DATE: 05/18/2018 SUBJECTIVE: The patient seen, appears more awake now off the BiPAP on nasal cannula. We were able t o suction some thick oral secretions with the nursing staff. The patient appears more awake and able to answer my questions with 1 or 2 words. The patient remains on low dose dopamine due to bradycard ia. Dr. Richard is following closely. I appreciate also Dr. Rodriguez pulmonary input and recommendation and ID recommendations. PHYSICAL EXAMINATION: VITAL SIGNS: Temperature 98, pulse 72, respirations 18, blood pressure 92/62, saturation 98% on 3 li ters. GENERAL: No acute distress, very frail, weak. CARDIOVASCULAR: S1, S2. LUNGS: Decreased bilaterally. ABDOMEN: Soft, slightly distended. EXTREMITIES: No clubbing, cyanosis, or edema. The patient is moving all extremities. LABORATORY DATA: White count is 7.1, hemoglobin 10.5, hematocrit 35, platelet count of 146, neutroph ils 67%, bands of 12%. Chemistry: Sodium 142, potassium 4.0, chloride 105, bicarbonate 26, BUN is 3 3, creatinine 1.23, glucose 122. Last glucose level 128, 123 and 122. Overall, good glycemic contro l. Again, kidney function slightly worsened today. Blood gas was not done today. MRSA screening in progress. MEDICATIONS: 1. Synthroid 137 mcg daily. 2. Lipitor 10 mg at bedtime. 3. NovoLog per sliding scale. 4. Diamox 500 IV daily. 5. Albuterol as directed. 6. Allopurinol 200 mg daily. 7. Vitamin D 5000 daily. 8. Merrem 500 IV q.12h. 9. TobraDex eyedrops b.i.d. 10. Hypoglycemia protocol as directed. 11. Dopamine as directed. 12. Tylenol p.r.n. 13. D5 half normal at 65 mL an hour. 14. Zofran and Protonix 40 IV daily. ASSESSMENT AND PLAN: This is an 83-year-old unfortunate male with history of vascular kaylie ntia, debilitated state, atrial fibrillation, CHF, hypertension, hypothyroidism, diabetes mellitus, v alvular heart disease, who presented with acute respiratory failure, hypoxemic, hypercapnic respirato ry failure, recent UTI and bacteremia, organism Pseudomonas aeruginosa, now presented with ongoing br adycardia and ongoing encephalopathy. 1. Respiratory. Continue nighttime BiPAP and p.r.n. 2. Avoid sedation. 3. Finished antibiotic course for bacteremia, urinary tract infection and pneumonia. 4. Cardiovascular. Off digoxin and beta blockers, now on dopamine. Hopefully, will titrate off, is only on 1 mcg dopamine. May consider starting him on aspirin. 5. Infectious disease. Continue above antibiotics. Complete the course of 14 days. 6. Generalized weakness. The patient is nonambulatory. Try to advance his diet. 7. Dysphagia. Speech therapy to follow. Continue aggressive suctioning and did start the patient o n pureed diet. 8. Hypothyroidism. Continue Synthroid. 9. Diabetes mellitus. Continue Accu-Chek, glucose level in the 100s. 10. Dehydration and contraction alkalosis on IV fluid hydration. 11. Left testicular mass. Dr. Ellis has been following, but no aggressive measures for now, as th ere are other issues. This most likely is in a nonmalignant mass in his scrotal area. 12. Continue Protonix for GI prophylaxis. 13. Anemia. Transfuse p.r.n. 14. Continue ICU care while on dopamine. Otherwise, the patient can be transferred to telemetry [facility] and consider transfer back to [facility]. Again, avoid sedation. Continue wound care, suctioning and close monitoring. 15. Anemia. No need for transfusion. Observe. We will continue to follow the patient closely. Dictated By: MAIN BARBOZA/MAMI Conf#: [id number] DID#: [id number] CC: CHUCHO MALONEY MD;*EndCC*
--- NOTE | 2018-05-19 12:51 | CONS ---
Date/Time of Note Date/Time of Note DATE: 05/19/18 TIME: 12:49 Assessment/Plan Assessment/Plan Chief Complaint/Hosp Course No acute events overnight patient is lethargic comfortable on nasal cannula he responds to name and simple questions no fevers overnight Temperature 97.7 pulse 69 respirations 24 blood pressure 94/53 saturation 97% on nasal cannula WBC 7 H&H 9.7 and 32.6 platelets 130 neutrophils 66.3 BUN 29 creatinine 1.19 Antimicrobials: Meropenem Physical examination: This is a chronically ill-appearing well-developed fragile elderly man who is lethargic, comfortable on nasal cannula and in no distress. Head atraumatic normocephalic, sclera nonicteric. Neck is supple. Chest rise symmetrical, breath sounds diminished bases, heart: S1-S2. Abdomen distended soft bowel sounds present extremities with trace edema Assessment: 1. S/p symptomatic bradycardia 2. Acute respiratory failure, CHF/pneumonia 3. Status post Pseudomonas bacteremia, blood cultures since May 08 negative 4. Encephalopathy 5. Coronary artery disease with a history of CABG and valve replacement Plan: Clinically and hemodynamically stable, continue antibiotics, aspiration precautions, follow pulmonary and cardiology recommendations Consultation Date/Type/Reason Admit Date/Time May 17, 2018 at 05:26 Initial Consult Date 05/17/18 Type of Consult id Requesting Provider: MAIN LANG MD Exam/Review of Systems Vital Signs Vitals Vital Signs Date Temp Pulse Resp B/P (MAP) Pulse Ox O2 O2 Flow FiO2 Time Delivery Rate 05/19/18 69 24 94/53 (67) 97 10:45 05/19/18 Nasal 2.0 08:00 Cannula 05/19/18 97.7 08:00 05/17/18 30 11:40 Intake and Output 05/18/18 05/18/18 05/19/18 1515:00 23:00 07:00 IntakeIntake Total 270.6 ml 394.15 ml 545.6 ml OutputOutput Total 320 ml 250 ml 260 ml BalanceBalance -49.4 ml 144.15 ml 285.6 ml KARINA LUNA NP May 19, 2018 12:51
--- NOTE | 2018-05-19 14:02 | PN ---
DATE: 05/19/2018 SUBJECTIVE: The patient was seen, appears to be more awake, able to verbalize to be more clearly tod ay. The patient says he is breathing better, overall improved. The patient was seen by munir king. We will still recommend to monitor him. Okay to give meds via , but otherwise still keep him n.p.o. The patient remains on IV hydration. PHYSICAL EXAMINATION: VITAL SIGNS: Temperature 97.7, pulse 69, respirations 24, blood pressure 94/53, saturation 97% on chu pplemental oxygen. GENERAL: No acute distress. HEENT: The patient is pale. No JVD. CARDIOVASCULAR: S1 and S2. LUNGS: Decreased bilaterally, otherwise clear. ABDOMEN: Soft. EXTREMITIES: No clubbing, cyanosis or edema. LABORATORY DATA: White count is 7, hemoglobin 9.7, hematocrit 33, platelet count of 130, neutrophils 66%, lymphocytes 14%. Chemistry: Sodium 143, potassium 3.9, chloride 105, bicarbonate 36, BUN is 2 9, creatinine 1.19 and glucose of 122. DIAGNOSTIC DATA: No imaging tests today. Chest x-ray on 05/17/2018 shows cardiomegaly with calcifie d atherosclerosis in the aorta, central pulmonary vascular congestion, interstitial prominence in bot h lungs, stable bilateral perihilar and lower lobe lung infiltrate with small pleural effusions. MEDICATIONS: 1. Albuterol every 6 hours and p.r.n. 2. Synthroid 137 mcg daily. 3. Lipitor 10 mg at bedtime. 4. Insulin aspart per sliding scale. 5. Diamox 500 IV daily. 6. Allopurinol 200 daily. 7. Vitamin D daily. 8. Merrem 500 IV q.12. 9. Tobramycin ophthalmic b.i.d. 10. Hypoglycemia protocol. 11. Dopamine at 1 mcg currently. 12. Tylenol D5 half normal at 65 mL. 13. Zofran. 14. Protonix 40 IV daily. MICROBIOLOGY: MRSA screening is negative. ASSESSMENT AND PLAN: This is an 83-year-old unfortunate male with history of vascular kaylie ntia, debilitated state, atrial fibrillation, congestive heart failure, hypertension, hypothyroidism, diabetes mellitus, valvular heart disease, who presented with acute respiratory failure, hypoxemic, hypercapnic respiratory failure, recent urinary tract infection and bacteremia, organism of Pseudomon as aeruginosa, now presents with bradycardia, ongoing encephalopathy. 1. Respiratory: Continue p.r.n. BiPAP and possible nightly BiPAP. Pulmonary is following. 2. Cardiovascular: Blood pressure in the 90s, remains on low dose, fluids and dopamine. Hopefully, we can taper off the dopamine today and the patient can be transferred to telemetry unit. 3. Infectious disease: The patient with urinary tract infection, bacteremia Pseudomonas aeruginosa. Continue Merrem. ID is following. The patient to complete a course of 14 days. 4. Generalized weakness with prolonged hospitalization. Overall, the patient is nonambulatory. 5. Dysphagia. Speech therapy to follow. Hopefully, we can advance diet to pureed diet by tomorrow. 6. Hypothyroidism. Continue Synthroid. 7. Diabetes mellitus. Continue Accu-Cheks. Glucose levels are good. 8. Dehydration, improved with hydration. No evidence of fluid overload. 9. Left testicular mass. Supportive care. No intervention in a patient's other more concerning iss ues. 10. Protonix for gastrointestinal prophylaxis. 11. Anemia. Transfuse p.r.n. 12. May transfer from ICU to telemetry if okay by cardiology and hopefully we can transfer back to [facility] for further medical management. Clinically better. We will follow. The patient is more alert. Dictated By: MAIN BARBOZA/MAMI Conf#: [id number] DID#: [id number] CC: CHUCHO MALONEY MD;*End*
--- NOTE | 2018-05-19 15:21 | CONS ---
Date/Time of Note Date/Time of Note DATE: 05/19/18 TIME: 15:18 Consult Date/Type/Reason Admit Date/Time May 17, 2018 at 05:26 Initial Consult Date 05/17/18 Type of Consultation: cv Requesting Provider: MAIN LANG MD Subjective cardiology follow up progress note S: Discussed with the staff on telemetry was reviewed. Patient remains in atrial fibrillation mostly with slow ventricular response. He has had multiple pauses the longest one was 5.8 seconds he has been placed back on dopamine drip although is a very low dose He is more awake and is able to answer but denies any chest pain or pressure to me still confused Objective: General: Elderly looking gentleman. On oxygen HEENT: NC/AT. Eyes are closed NECK:. no stridor. CV: Irregularly irregular systolic murmur; no gallop or rubs. PULM: no wheezing + rhonchi. GI: SOFT, NT, ND, no rebound or guarding Extremity: +B/L LE edema. no clubbing. neuro: Drowsy but appears to be oriented x1 responds appropriately Psych: calm rectal: deferred : normal Derm: Multiple diffuse ecchymosis Echocardiogram done 05/14/2018 which was personally reviewed shows: There is severe enlargement of left atrium. There is mild enlargement of right atrium. Lower limits of normal systolic function. Normal left ventricular cavity size. Mild concentric left ventricular hypertrophy. Ejection fraction is visually estimated at 50-55 %. Moderate mitral leaflet calcification. Severe mitral annular calcification. Trace mitral regurgitation. Mild to moderate mitral stenosis. Mitral valve Max Velocity 2.40 m/sec. MaxPG 22.00 mmHg. MeanPG 7.00 mmHg. Aortic valve not well visualized. Aortic Valve Bio Prosthesis. Aortic valve Max velocity 2.55 m/sec. Max PG 26.00 mmHg. Mean PG 13.00 mmHg. Mild aortic valve regurgitation. Normal appearance of the tricuspid valve. Estimated peak PA systolic pressure 78 mmHg. There is moderate tricuspid regurgitation. Inferior vena cava without respiratory collapse, however, patient on ventilator. Normal pericardium with no significant pericardial effusion. Chest x-ray shows: Cardiomegaly with calcified atherosclerosis in the aorta. Central pulmonary vascular congestion and interstitial prominence in both lungs. Stable bilateral perihilar and lower lung infiltrates with small pleural effusions. Elevated right hemidiaphragm. Objective Vital Signs Date Temp Pulse Resp B/P (MAP) Pulse Ox O2 O2 Flow FiO2 Time Delivery Rate 05/19/18 62 23 85/41 (56) 91 13:30 05/19/18 97.7 12:00 05/19/18 Nasal 2.0 08:00 Cannula 05/17/18 30 11:40 Intake and Output 05/18/18 05/18/18 05/19/18 1515:00 23:00 07:00 IntakeIntake Total 270.6 ml 394.15 ml 545.6 ml OutputOutput Total 320 ml 250 ml 260 ml BalanceBalance -49.4 ml 144.15 ml 285.6 ml Results/Medications Result Diagram: 05/19/18 0432 05/19/18 0429 Results 24 hrs Laboratory Tests Test 05/18/18 17:29 05/18/18 20:54 05/19/18 00:43 05/19/18 04:29 Bedside Glucose 113 138 119 Sodium Level 143 Potassium Level 3.9 Chloride Level 105 Carbon Dioxide 36 H Level Anion Gap 2 L Blood Urea 29 H Nitrogen Creatinine 1.19 Est Glomerular Filtrat Rate mL/min Glucose Level 122 Calcium Level 9.2 Test 05/19/18 04:32 05/19/18 09:48 05/19/18 13:33 White Blood 7.0 Count Red Blood Count 2.97 L Hemoglobin 9.7 L Hematocrit 32.6 L Mean Corpuscular 109.8 H Volume Mean Corpuscular 32.7 Hemoglobin Mean Corpuscular 29.8 L Hemoglobin Sharita nt Red Cell 19.9 H Distribution Width Platelet Count 130 L Mean Platelet 11.4 H Volume Immature 5.900 H Granulocytes % Neutrophils % 66.3 Lymphocytes % 13.3 L Monocytes % 9.0 Eosinophils % 4.6 Basophils % 0.9 Nucleated Red 0.3 H Blood Cells % Immature 0.410 H Granulocytes # Neutrophils # 4.6 Lymphocytes # 0.9 Monocytes # 0.6 Eosinophils # 0.3 Basophils # 0.1 Nucleated Red 0.0 Blood Cells # Phosphorus Level 3.1 Magnesium Level 2.0 Bedside Glucose 115 113 Medications Current Medications Dopamine HCl/ Dextrose 250 ml @ 6.405 mls/ hr TITRATE IV Last administered on 05/17/18at 23:09; Admin Dose 6.405 MLS/HR; Start 05/17/18 at 06:30 Acetaminophen (Tylenol Tab) 650 mg Q6H PRN PO MILD PAIN(1-3)OR ELEVATED TEMP; Start 05/17/18 at 06:30 Acetazolamide (Diamox) 500 mg DAILY IV Last administered on 05/19/18at 09:16; Admin Dose 500 MG; Start 05/17/18 at 09:00 Allopurinol (Zyloprim) 200 mg DAILY PO Last administered on 05/19/18at 09:17; Admin Dose 200 MG; Start 05/17/18 at 09:00 Atorvastatin Calcium (Lipitor) 10 mg HS PO ; Start 05/17/18 at 21:00 Cholecalciferol (Vitamin D) 5,000 unit DAILY PO Last administered on 05/19/18at 09:17; Admin Dose 5,000 UNIT; Start 05/17/18 at 09:00 Dextrose/Sodium Chloride 1,000 ml @ 65 mls/hr [id number] IV Last administered on 05/19/18at 04:33; Admin Dose 65 MLS/HR; Start 05/17/18 at 06:30 Levothyroxine Sodium (Synthroid) 137 mcg DAILY@06 PO ; Start 05/18/18 at 06:00 Meropenem/Sodium Chloride 50 ml @ 100 mls/hr Q12 IVPB Last administered on 05/19/18at 09:15; Admin Dose 100 MLS/HR; Start 05/17/18 at 09:00 Ondansetron HCl (Zofran Inj) 4 mg Q4H PRN IV NAUSEA AND/OR VOMITING; Start 05/17/18 at 06:30 Pantoprazole (Protonix Iv) 40 mg DAILY@06 IV Last administered on 05/19/18at 06:10; Admin Dose 40 MG; Start 05/17/18 at 06:00 Tobramycin Sulfate (Tobrex 0.3% Oph Drop) 1 drop BID BOTH EYES Last adminis tered on 05/19/18at 09:16; Admin Dose 1 DROP; Start 05/17/18 at 09:00 Miscellaneous Information 1 ea NOTE XX ; Start 05/17/18 at 07:00 Glucose (Glutose) 15 gm Q15M PRN PO DECREASED GLUCOSE; Start 05/17/18 at 07:00 Glucose (Glutose) 22.5 gm Q15M PRN PO DECREASED GLUCOSE; Start 05/17/18 at 07:00 Dextrose (D50w Syringe) 25 ml Q15M PRN IV DECREASED GLUCOSE; Start 05/17/18 at 07:00 Dextrose (D50w Syringe) 50 ml Q15M PRN IV DECREASED GLUCOSE; Start 05/17/18 at 07:00 Glucagon (Glucagen) 1 mg Q15M PRN IM DECREASED GLUCOSE; Start 05/17/18 at 07:00 Glucose (Glutose) 15 gm Q15M PRN BUCCAL DECREASED GLUCOSE; Start 05/17/18 at 07:00 Insulin Aspart (Novolog Insulin Pen) NOVOLOG *MILD* ALGORI... Q4 SC Last administered on 05/17/18at 21:42; Admin Dose 1 UNIT; Start 05/17/18 at 13:00 Albuterol (Proventil 0.083% (Neb)) 2.5 mg Q6H RESP THERAPY PRN HHN WHEEZING; Start 05/19/18 at 09:00 Assessment/Plan Chief Complaint/Hosp Course 1. Atrial fibrillation with slow ventricular response and multiple pauses and with 1 long pause of more than 20 seconds which happened during the NG tube placement 2. Hypercapnic respiratory failure 3. Status post Pseudomonas pneumonia and bacteremia 4. Encephalopathy 5. History of hypertension 6. History of possible coronary bypass graft 7. 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 Anemia Recommendations: Antibiotic management as per ID recommendation Supportive care and respiratory care as per pulmonary. We will closely monitor on telemetry. Digoxin and Coreg has been discontinued. I have in fact stop the digoxin couple of days ago at [facility] but is still most recent dig leve was 1.1 will repeat dig level tomorrow We will continue to monitor him closely. CODE STATUS is full code for now but family/friend is considering changing it given his recent Pseudomonas bacteremia I am very concerned about considering pacemaker placement him. We will try to adjust the medication closely monitor for time being titrate off Dopamine as tolerated We will continue with ICU care. Thank you for his referral. We will continue to follow along with you SAMARIA AGUILAR MD [facility] SAMARIA AGUILAR MD May 19, 2018 15:21
--- NOTE | 2018-05-19 18:44 | NUR ---
Pt is AO x2, lethargic. 2 L NC, Afib on monitor. Dopa ggt stopped per Dr Richard at 1500. Minimal urine output present, no BM. Pt failed swallow eval, except ok to take crushed meds with nectar thick liquid. Pt's family- is updated regarding pt' scare, prognosis. Will monitor closely.
[2018-05-19] MEDS: ATORVASTATIN 10 MG TAB PO SCH (20:50)
[2018-05-20] VITALS (26 sets, daily range): BP systolic 101–124; BP diastolic 52–71; PULSE 33–72; RESP 13–30
[2018-05-20] MEDS: INSULIN ASPART [NOVOLOG] 3 ML PEN SC SCH ×6 (00:33→21:00)
[2018-05-20] MEDS: DEXTROSE 5%-0.45% NACL 1,000 ML IV SCH (00:35)
[2018-05-20] MEDS: PANTOPRAZOLE 40 MG INJ IV SCH (05:50)
[2018-05-20] MEDS: LEVOTHYROXINE 137 MCG TAB PO SCH (05:50)
--- NOTE | 2018-05-20 06:32 | NUR ---
EOSS: No significant change of condition last night, pt. denies any pain and discomfort,no headache, no nausea and vomiting . with low temperature, placed pt. on chantal hugger. tolerating well on O2 at 2lpm via nasal cannula. no BM. with ongoing IVF D5 1/2 NS at 65cc/hr infusing well at left forearm. turned and repositioned [id number]. all needs attended.
--- NOTE | 2018-05-20 08:31 | CONS ---
Date/Time of Note Date/Time of Note DATE: 05/20/18 TIME: 08:28 Assessment/Plan Assessment/Plan Additional Assessment/Plan Chest x-ray was reviewed from yesterday evening which is essentially unremarkable except for chronic appearing interstitial changes with cardiomegaly. Assessment recommendations; 1. Patient admitted for severe bradycardia with history of atrial fibrillation with heart rate in the 60s now with stable hemodynamics. 2. Chronic appearing interstitial lung disease. 3. Prior CABG. 4. Chronic atrial fibrillation. 5. Mild anemia and thrombocytopenia. 6. Cardiomyopathy. 7. History of hypothyroidism. 8. Likely underlying dementia. 9. Acute encephalopathy with significant interval improvement. Continue current supportive care. Consider stopping antibiotics. Consider transfer to telemetry unit. Consultation Date/Type/Reason Admit Date/Time May 17, 2018 at 05:26 Initial Consult Date 05/17/18 Type of Consult Pulmonary/critical care History of presenting illness; patient is a 83-year-old male who was transferred over to ICU from [facility] for hypoxemia and hypotension. Patient also de veloped bradycardia with history of atrial fibrillation. By the time I saw him, patient is on BiPAP and because of advanced dementia is unable to give any history whatsoever by himself. History was obtained from medical records. Past medical history; 1. Advanced dementia. 2. Likely underlying cardiomyopathy. 3. Prior CABG. 4. History of gout. Medications; reviewed. Allergies; none. Family history, social history, occupational history is not available. Review of system; unable to be obtained. General exam; elderly male, on BiPAP, unresponsive, currently in no distress. Requesting Provider: MAIN LANG MD 24 HR Interval Summary Free Text/Dictation Patient's condition is stable. Remains awake and responsive. Has remained hemodynamically stable. General exam; elderly male, awake and alert. Currently no distress. Appropri ately communicative and able to talk. Exam/Review of Systems Vital Signs Vitals Vital Signs Date Temp Pulse Resp B/P (MAP) Pulse Ox O2 O2 Flow FiO2 Time Delivery Rate 05/20/18 50 22 122/70 98 Nasal 2.0 06:00 (87) Cannula 05/20/18 97.4 04:00 05/17/18 30 11:40 Intake and Output 05/19/18 05/19/18 05/20/18 1515:00 23:00 07:00 IntakeIntake Total 695.6 ml 570 ml 455 ml OutputOutput Total 275 ml 225 ml 210 ml BalanceBalance 420.6 ml 345 ml 245 ml Exam H EENT exam; supple neck, no JVD. No lymphadenopathy. Midline trachea. No thyromegaly. Patient is edentulous. Pupils are small bilaterally. No neck masses. Chest exam; diminished breath sounds bilateral. No added sounds. S1-S2 audible, no murmurs. Irregular rhythm. Abdomen exam; soft, no organomegaly. Bowel sounds audible. Extremity exam; no peripheral edema or clubbing. LUMP MAKER exam; patient is awake and responsive, no focal motor deficit. DANA YODER May 20, 2018 08:31
--- NOTE | 2018-05-20 09:02 | PQ ---
Date/Time of Note Date/Time of Note DATE: 05/20/18 TIME: 08:[address] Matos , A review of the medical record found a need for documentation clarification. per Wound care nurse documentation, patient found to have " Coccyx stage 3 pressure injury. Condition present on admission" Please specify if you agree with wound care nurse assessment. Thank you Please clarify a diagnosis being treated. To facilitate accurate and complete coding, please glendy ( x ) the suspected diagnosis that apply: ( x ) YES ( ) NO ( ) Other Please provide your response by clicking edit document, making your choice (x ), click ok/save and finally click sign. You may also document your response on your progress notes. Thank you for your time. Anders MICHAUDBS,CCS,CCDS Clinical Marketing Director Health Information Management, CDI and Coding Services Room # [id number] - [place] [address] ANDERS SHER May 20, 2018 09:02 MAIN MATOS MD May 20, 2018 17:24
--- NOTE | 2018-05-20 09:04 | PQ ---
Date/Time of Note Date/Time of Note DATE: 05/20/18 TIME: 09:[address] Matos, A review of the medical record found a need for documentation clarification. patient admitted with Bradycardia and Acute Encephalopathy. please further specify the diagnosis of Encephalopathy. Thank you Please clarify a diagnosis being treated. To facilitate accurate and complete coding, please glendy ( x ) the suspected woodrow gnosis that apply: ( x ) Metabolic Encephalopathy ( x ) Toxic Encephalopathy ( ) Other Encephalopathy ( ) Unspecified Encephalopathy Please provide your response by clicking edit document, making your choice (x ), click ok/save and finally click sign. You may also document your response on your progress notes. Thank you for your time. Anders MICHAUDBS,CCS,CCDS Clinical Casing Tier Health Information Management, CDI and Coding Services [phone] Room # [id number] - Coding [address] [address] ANDERS SHER May 20, 2018 09:04 MAIN MATOS MD May 20, 2018 17:24
[2018-05-20] MEDS: BALSAM PERU/CASTOR OIL 60 GM TUBE TOP SCH ×2 (09:11→21:26)
[2018-05-20] MEDS: TOBRAMYCIN 0.3% 5 ML OPH BOTH EYES SCH ×2 (09:11→21:26)
[2018-05-20] MEDS: MEROPENEM 1 GM/50ML(PMX) 50 ML IVPB SCH (09:14)
[2018-05-20] MEDS: ACETAZOLAMIDE 500 MG INJ IV SCH (09:14)
[2018-05-20] MEDS: ALLOPURINOL 100 MG TAB PO SCH (09:14)
[2018-05-20] MEDS: CHOLECALCIFEROL 1,000 UNIT TAB PO SCH (09:14)
--- NOTE | 2018-05-20 14:03 | NUR ---
Dysphagia/Swallow Therapy note: Brief Hx: Mr. Nunez is an 83-year-old male with past medical history of vascular dementia, atrial fibrillation, CHF, coronary artery disease, status post coronary artery bypass graft, diabetes mellitus, hypertension, BPH, and dyslipidemia. The patient was recently admitted to [facility] with supratherapeutic INR and body ecchymosis. After discharge he returned to [facility] with ongoing respiratory failure. The patient was diagnosed with pseudomonas aeruginosa urinary tract infection and bacteremia. Unfortunately, patient's respiratory failure continued and he was transferred to [facility] where he was placed intermittently on BiPAP. He was transferred to ICU to initiate a dopamine drip after he was noted to be more bradycardic. Chest XR completed on 05/19/2018: IMPRESSION: 1. Moderate cardiomegaly. 2. Small to moderate bilateral pleural effusions. 3. Mild pulmonary edema, similar from prior study. Bibasilar atelectasis. Vitals: temp: 96.5; RR: 25-27; SPO2: 97% on 2 liters/min on NC and BIPAP overnight, Labs: WBC: 6.6; Hgb/Hct: 10.4L/35.0L; Co2: 35H; Plt C: 139L (dropping), BUN: 25H; Cr level: 1.19 Current diet: npo +Iv Fluids and crushed apple sauce for medication when awake/alert. S: pt was received drowsy and difficult to arouse, he was currently on [place]o level 5 (confused but able to follow simple commands with max prompting), which could be his baseline due to the reported dementia. Pt was oriented to self only and agreeable to participate in therapy. Pts vocal quality was clear at baseline. O: Rx plan was reviewed and tx consisted of the followin. improve swallow safety. 2. optimize oral care and hygiene management. +xerostomia but clean/clear. nursing appreciated. 3. p.o trials performed: ice chips x2 which resulted in delayed trigger and A-P transit, aswell as reduced oral control resulting in suspected premature loss into the hypopharynx. Immediate throat clear resulting in suspected penetration. NTL by teaspoon x 5 trials with max prompting: delayed A-P transit but better oral control compared to ice chips. No overt s/s of aspiration. Puree x 3 trials-(1/2 teaspoon at a time), with max prompting: reduced bolus manipulation required max prompting to maintain focus on bolus, reduced A-P transit, and suspected residue in pharyngeal cavity after the swallow. No overt s/s of aspiration. 4. optimize BOT retraction/coordination: lingual resistance exercises with max prompting in 5 trials: tongue strength is 2+/5. 5. consulted with nursing staff regarding the pts swallowing status. 6. p.o status/diet consistency/level of supervision: Keep NPO+IV Fluids and allow single teaspoon of crushed medication with puree and alternated with NTL by teaspoon. A: moderate oropharyngeal dysphagia associated with debility/generalized weakness, reduced oropharyngeal strength/coordination and reduced mentation status/level of arousal impacting swallow safety. Pt is not safe or ready to initiate a p.o diet at this time. Compared to the initial evaluation, the pt is safe to continue with p.o for only crushed medication when awake/alert. P: 1. Continue Poc. 2. Keep NPO+IV Fluids and allow crushed medication with apple sauce and alternated with NTL by teaspoon only when awake/alert. Please hold all medications if pt is lethargic and unable to keep his eyes open. 3. continue to provide frequent oral care and hygiene management.
--- NOTE | 2018-05-20 14:04 | CONS ---
Date/Time of Note Date/Time of Note DATE: 05/20/18 TIME: 14:02 Assessment/Plan Assessment/Plan Chief Complaint/Hosp Course No acute events overnight patient is alert, comfortable on nc, no fevers WBC 6.6 platelets 139 neutrophils 65 BUN 25 creatinine 1.19 alert, Antimicrobials: Meropenem Physical examination: This is a chronically ill-appearing well-developed fragile elderly man who is lethargic, comfortable on nasal cannula and in no distress. Head atraumatic normocephalic, sclera nonicteric. Neck is supple. Chest rise symmetrical, breath sounds diminished bases, heart: S1-S2. Abdomen distended soft bowel sounds present extremities with trace edema Assessment: 1. S/p symptomatic bradycardia 2. Acute respiratory failure, CHF/pneumonia 3. Status post Pseudomonas bacteremia, blood cultures since May 08 negative 4. Encephalopathy 5. Coronary artery disease with a history of CABG and valve replacement Plan: Clinically doing much better, completed antibiotics, continue aspiration precautions, follow pulmonary and cardiology recommendations Consultation Date/Type/Reason Admit Date/Time May 17, 2018 at 05:26 Initial Consult Date 05/17/18 Type of Consult id Requesting Provider: MAIN LANG MD Exam/Review of Systems Vital Signs Vitals Vital Signs Date Temp Pulse Resp B/P (MAP) Pulse Ox O2 O2 Flow FiO2 Time Delivery Rate 05/20/18 63 12:00 05/20/18 26 102/54 97 Nasal 11:00 (70) Cannula 05/20/18 2.0 08:00 05/20/18 96.5 08:00 05/17/18 30 11:40 Intake and Output 05/19/18 05/19/18 05/20/18 1515:00 23:00 07:00 IntakeIntake Total 695.6 ml 570 ml 520 ml OutputOutput Total 275 ml 225 ml 210 ml BalanceBalance 420.6 ml 345 ml 310 ml Medications Medications Current Medications Dopamine HCl/ Dextrose 250 ml @ 6.405 mls/ hr TITRATE IV Last administered on 05/17/18at 23:09; Admin Dose 6.405 MLS/HR; Start 05/17/18 at 06:30 Acetaminophen (Tylenol Tab) 650 mg Q6H PRN PO MILD PAIN(1-3)OR ELEVATED TEMP; Start 05/17/18 at 06:30 Acetazolamide (Diamox) 500 mg DAILY IV Last administered on 05/20/18at 09:14; Admin Dose 500 MG; Start 05/17/18 at 09:00 Allopurinol (Zyloprim) 200 mg DAILY PO Last administered on 05/20/18at 09:14; Admin Dose 200 MG; Start 05/17/18 at 09:00 Atorvastatin Calcium (Lipitor) 10 mg HS PO ; Start 05/17/18 at 21:00 Cholecalciferol (Vitamin D) 5,000 unit DAILY PO Last administered on 05/20/18at 09:14; Admin Dose 5,000 UNIT; Start 05/17/18 at 09:00 Dextrose/Sodium Chloride 1,000 ml @ 65 mls/hr [id number] IV Last administered on 05/20/18at 00:35; Admin Dose 65 MLS/HR; Start 05/17/18 at 06:30 Levothyroxine Sodium (Synthroid) 137 mcg DAILY@06 PO Last administered on 05/20/18at 05:50; Admin Dose 137 MCG; Start 05/18/18 at 06:00 Meropenem/Sodium Chloride 50 ml @ 100 mls/hr Q12 IVPB Last administered on 05/20/18at 09:14; Admin Dose 100 MLS/HR; Start 05/17/18 at 09:00 Ondansetron HCl (Zofran Inj) 4 mg Q4H PRN IV NAUSEA AND/OR VOMITING; Start 05/17/18 at 06:30 Pantoprazole (Protonix Iv) 40 mg DAILY@06 IV Last administered on 05/20/18at 05:50; Admin Dose 40 MG; Start 05/17/18 at 06:00 Tobramycin Sulfate (Tobrex 0.3% Oph Drop) 1 drop BID BOTH EYES Last administered on 05/20/18at 09:11; Admin Dose 1 DROP; Start 05/17/18 at 09:00 Miscellaneous Information 1 ea NOTE XX ; Start 05/17/18 at 07:00 Glucose (Glutose) 15 gm Q15M PRN PO DECREASED GLUCOSE; Start 05/17/18 at 07:00 Glucose (Glutose) 22.5 gm Q15M PRN PO DECREASED GLUCOSE; Start 05/17/18 at 07:00 Dextrose (D50w Syringe) 25 ml Q15M PRN IV DECREASED GLUCOSE; Start 05/17/18 at 07:00 Dextrose (D50w Syringe) 50 ml Q15M PRN IV DECREASED GLUCOSE; Start 05/17/18 at 07:00 Glucagon (Glucagen) 1 mg Q15M PRN IM DECREASED GLUCOSE; Start 05/17/18 at 07:00 Glucose (Glutose) 15 gm Q15M PRN BUCCAL DECREASED GLUCOSE; Start 05/17/18 at 07:00 Insulin Aspart (Novolog Insulin Pen) NOVOLOG *MILD* ALGORI... Q4 SC Last ad ministered on 05/17/18at 21:42; Admin Dose 1 UNIT; Start 05/17/18 at 13:00 Albuterol (Proventil 0.083% (Neb)) 2.5 mg Q6H RESP THERAPY PRN HHN WHEEZING; Start 05/19/18 at 09:00 KARINA LUNA NP May 20, 2018 14:04
--- NOTE | 2018-05-20 15:53 | CONS ---
Date/Time of Note Date/Time of Note DATE: 05/20/18 TIME: 15:51 Consult Date/Type/Reason Admit Date/Time May 17, 2018 at 05:26 Initial Consult Date 05/17/18 Type of Consultation: cv Requesting Provider: MAIN LANG MD Subjective cardiology follow up progress note S: Discussed with the staff on telemetry was reviewed. Patient remains in atrial fibrillation mostly with slow ventricular response but no long pauses is seen overnight he is off dopamine drip He is more awake and is able to answer no chest pain or pressure or syncope Objective: General: Elderly looking gentleman. On oxygen HEENT: NC/AT. Eyes are closed NECK:. no stridor. CV: Irregularly irregular systolic murmur; no gallop or rubs. PULM: no wheezing + rhonchi. GI: SOFT, NT, ND, no rebound or guarding Extremity: +B/L LE edema. no clubbing. neuro: awake and alert. responds appropriately now Psych: calm rectal: deferred : normal Derm: Multiple diffuse ecchymosis Echocardiogram done 05/14/2018 which was personally reviewed shows: There is severe enlargement of left atrium. There is mild enlargement of right atrium. Lower limits of normal systolic function. Normal left ventricular cavity size. Mild concentric left ventricular hypertrophy. Ejection fraction is visually estimated at 50-55 %. Moderate mitral leaflet calcification. Severe mitral annular calcification. Trace mitral regurgitation. Mild to moderate mitral stenosis. Mitral valve Max Velocity 2.40 m/sec. MaxPG 22.00 mmHg. MeanPG 7.00 mmHg. Aortic valve not well visualized. Aortic Valve Bio Prosthesis. Aortic valve Max velocity 2.55 m/sec. Max PG 26.00 mmHg. Mean PG 13.00 mmHg. Mild aortic valve regurgitation. Normal appearance of the tricuspid valve. Estimated peak PA systolic pressure 78 mmHg. There is moderate tricuspid regurgitation. Inferior vena cava without respiratory collapse, however, patient on ventilator. Normal pericardium with no significant pericardial effusion. Chest x-ray shows: Cardiomegaly with calcified atherosclerosis in the aorta. Central pulmonary vascular congestion and interstitial prominence in both lungs. Stable bilateral perihilar and lower lung infiltrates with small pleural effusions. Elevated right hemidiaphragm. CXR 05/19/18: 1. Moderate cardiomegaly. 2. Small to moderate bilateral pleural effusions. 3. Mild pulmonary edema, similar from prior study. Bibasilar atelectasis. Objective Vital Signs Date Temp Pulse Resp B/P (MAP) Pulse Ox O2 O2 Flow FiO2 Time Delivery Rate 05/20/18 60 18 112/53 100 Nasal 14:00 (72) Cannula 05/20/18 98.0 12:00 05/20/18 2.0 08:00 05/17/18 30 11:40 Intake and Output 05/19/18 05/19/18 05/20/18 1515:00 23:00 07:00 IntakeIntake Total 695.6 ml 570 ml 520 ml OutputOutput Total 275 ml 225 ml 210 ml BalanceBalance 420.6 ml 345 ml 310 ml Results/Medications Result Diagram: 05/20/18 0503 05/20/18 0503 Results 24 hrs Laboratory Tests Test 05/19/18 16:44 05/19/18 20:51 05/20/18 00:32 05/20/18 05:03 Bedside Glucose 114 127 127 White Blood 6.6 Count Red Blood Count 3.13 L Hemoglobin 10.4 L Hematocrit 35.0 L Mean Corpuscular 111.8 H Volume Mean Corpuscular 33.2 H Hemoglobin Mean Corpuscular 29.7 L Hemoglobin Sharita nt Red Cell 19.9 H Distribution Width Platelet Count 139 L Mean Platelet 11.7 H Volume Immature 5.900 H Granulocytes % Neutrophils % 65.0 Lymphocytes % 13.3 L Monocytes % 10.1 Eosinophils % 4.5 Basophils % 1.2 Nucleated Red 0.3 H Blood Cells % Immature 0.390 H Granulocytes # Neutrophils # 4.3 Lymphocytes # 0.9 Monocytes # 0.7 Eosinophils # 0.3 Basophils # 0.1 Nucleated Red 0.0 Blood Cells # Sodium Level 144 Potassium Level 4.1 Chloride Level 103 Carbon Dioxide 35 H Level Anion Gap 6 Blood Urea 25 H Nitrogen Creatinine 1.19 Est Glomerular Filtrat Rate mL/min Glucose Level 128 Calcium Level 9.5 Phosphorus Level 3.1 Magnesium Level 2.0 Digoxin Level 0.8 L Test 05/20/18 05:48 05/20/18 09:09 05/20/18 13:16 Bedside Glucose 126 122 120 Medications Current Medications Dopamine HCl/ Dextrose 250 ml @ 6.405 mls/ hr TITRATE IV Last administered on 05/17/18at 23:09; Admin Dose 6.405 MLS/HR; Start 05/17/18 at 06:30 Acetaminophen (Tylenol Tab) 650 mg Q6H PRN PO MILD PAIN(1-3)OR ELEVATED TEMP; Start 05/17/18 at 06:30 Acetazolamide (Diamox) 500 mg DAILY IV Last administered on 05/20/18at 09:14; Admin Dose 500 MG; Start 05/17/18 at 09:00 Allopurinol (Zyloprim) 200 mg DAILY PO Last administered on 05/20/18at 09:14; Admin Dose 200 MG; Start 05/17/18 at 09:00 Atorvastatin Calcium (Lipitor) 10 mg HS PO ; Start 05/17/18 at 21:00 Cholecalciferol (Vitamin D) 5,000 unit DAILY PO Last administered on 05/20/18at 09:14; Admin Dose 5,000 UNIT; Start 05/17/18 at 09:00 Dextrose/Sodium Chloride 1,000 ml @ 65 mls/hr [id number] IV Last administered on 05/20/18at 00:35; Admin Dose 65 MLS/HR; Start 05/17/18 at 06:30 Levothyroxine Sodium (Synthroid) 137 mcg DAILY@06 PO Last administered on 05/20/18at 05:50; Admin Dose 137 MCG; Start 05/18/18 at 06:00 Ondansetron HCl (Zofran Inj) 4 mg Q4H PRN IV NAUSEA AND/OR VOMITING; Start 05/17/18 at 06:30 Pantoprazole (Protonix Iv) 40 mg DAILY@06 IV Last administered on 05/20/18at 05:50; Admin Dose 40 MG; Start 05/17/18 at 06:00 Tobramycin Sulfate (Tobrex 0.3% Oph Drop) 1 drop BID BOTH EYES Last administered on 05/20/18at 09:11; Admin Dose 1 DROP; Start 05/17/18 at 09:00 Miscellaneous Information 1 ea NOTE XX ; Start 05/17/18 at 07:00 Glucose (Glutose) 15 gm Q15M PRN PO DECREASED GLUCOSE; Start 05/17/18 at 07:00 Glucose (Glutose) 22.5 gm Q15M PRN PO DECREASED GLUCOSE; Start 05/17/18 at 07:00 Dextrose (D50w Syringe) 25 ml Q15M PRN IV DECREASED GLUCOSE; Start 05/17/18 at 07:00 Dextrose (D50w Syringe) 50 ml Q15M PRN IV DECREASED GLUCOSE; Start 05/17/18 at 07:00 Glucagon (Glucagen) 1 mg Q15M PRN IM DECREASED GLUCOSE; Start 05/17/18 at 07:00 Glucose (Glutose) 15 gm Q15M PRN BUCCAL DECREASED GLUCOSE; Start 05/17/18 at 07:00 Insulin Aspart (Novolog Insulin Pen) NOVOLOG *MILD* ALGORI... Q4 SC Last administered on 05/17/18at 21:42; Admin Dose 1 UNIT; Start 05/17/18 at 13:00 Albuterol (Proventil 0.083% (Neb)) 2.5 mg Q6H RESP THERAPY PRN HHN WHEEZING; Start 05/19/18 at 09:00 Assessment/Plan Chief Complaint/Hosp Course 1. Atrial fibrillation with slow ventricular response and multiple pauses and with 1 long pause of more than 20 seconds which happened during the NG tube placement 2. Hypercapnic respiratory failure 3. Status post Pseudomonas pneumonia and bacteremia 4. Encephalopathy 5. History of hypertension 6. History of possible coronary bypass graft 7. 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 Anemia 9. CHF pulm HTN, 10. pleural effusion Recommendations: Antibiotic management as per ID recommendation Supportive care and respiratory care as per pulmonary. We will closely monitor on telemetry. Digoxin and Coreg has been discontinued. diuresis with diamox We will continue to monitor him closely. CODE STATUS is full code for now but family/friend is considering changing it given his recent Pseudomonas bacteremia I am very concerned about considering pacemaker placement him. We will continue with ICU care. Thank you for his referral. We will continue to follow along with you SAMARIA AGUILAR MD [facility] SAMARIA AGUILAR MD May 20, 2018 15:53
--- NOTE | 2018-05-20 18:12 | PN ---
DATE: 05/20/2018 SUBJECTIVE: The patient remains in the intensive care unit, now off dopamine drip. Cardiology clear ed the patient to be transferred out of the ICU. The patient appears to be more awake, tolerating Je ll-O, and will advance diet to pureed diet as patient is now more awake. PHYSICAL EXAMINATION: VITAL SIGNS: Blood pressure is 116/57, pulse 62, temperature 97.5, saturation 100%. GENERAL: The patient is in no acute distress. The patient is pale. CARDIOVASCULAR: S1 and S2. LUNGS: Actually clear bilaterally. ABDOMEN: Soft. EXTREMITIES: No clubbing, cyanosis, or edema. LABORATORY DATA: White count 6.6, hemoglobin 10.4, hematocrit 35, platelet count 129, neutrophils 65 %, lymphocytes 13%. Chemistry: Sodium 144, potassium 4.1, chloride 103, bicarbonate 35, BUN 25, cre atinine 1.9, glucose 128; last glucose level 120, 122, and 126. MRSA screening is negative. Chest x -ray dated yesterday shows moderate cardiomegaly, small to moderate bilateral pleural effusion, mild pulmonary edema similar to the prior ____, bibasilar atelectasis. MEDICATIONS: 1. Albuterol every 6 hours p.r.n. 2. Synthroid 137 mcg daily. 3. Lipitor 10 mg at bedtime. 4. Insulin aspart per sliding scale. 5. Diamox 500 IV daily. 6. Allopurinol 200 daily. 7. Vitamin D as directed. 8. Tobramycin ophthalmic b.i.d. 9. Hypoglycemia protocol. 10. Currently off dopamine. 11. Tylenol. 12. D5 half normal at 65 mL an hour. 13. Zofran. 14. Protonix 40 IV daily. 15. We will discontinue fluids. ASSESSMENT AND PLAN: This is an 83-year-old unfortunate male with history of vascular kaylie ntia, debilitated state, atrial fibrillation, CHF, hypertension, hypothyroidism, diabetes mellitus, v alvular heart disease, who presented with acute respiratory failure, hypoxemic hypercapnic respirator y failure, recent urinary tract infection, bacteremia, organism Pseudomonas aeruginosa, now status po st worsening encephalopathy, respiratory failure and bradycardia. 1. Respiratory. Doing much better. Continue BiPAP p.r.n. and pulmonary followup. Continue breathi ng treatment, O2 support, aspiration precaution. 2. Cardiovascular. The patient with bradycardia, but beta blockers and digoxin were discontinued. Heart rate is more stable now, off digoxin, heart rate is in the high 50s to low 60s. 3. Infectious disease. Finished the course for treatment for bacteremia Pseudomonas aeruginosa. Wh ite count is normal. The patient is afebrile. 4. Generalized weakness with prolonged hospitalization. The patient overall is nonambulatory, clini edouard better, more alert. 5. Dysphagia. Appears to be more alert, so we will advance diet to pureed diet as tolerated with as piration precautions. 6. Hypothyroidism. Continue Synthroid. 7. Diabetes mellitus. Continue Accu-Cheks. Glucose levels are good. 8. Dehydration. Much improved with hydration. Hep lock IV fluids to prevent fluid overload state. 9. Left testicular mass. Supportive care. 10. Continue Protonix for GI prophylaxis. 11. Anemia. Transfuse p.r.n. 12. Transfer out of the ICU to the telemetry unit. Clinically better. See how he tolerates his t. Possible transfer back to [facility]. We will follow. Dictated By: MAIN BARBOZA/MAMI Conf#: [id number] DID#: [id number]
--- NOTE | 2018-05-20 19:04 | NUR ---
TRANSFER REPORT GIVEN AND ENDORSED CARE TO SOFIA GARCIA. PATIENT OFF UNIT, TRANSFERRED BY THIS RN AND JOE TRANSPORT STAFF. --- END OF SHIFT SUMMARY Patient awake and confused, but able to follow commands. Patient afebrile. Rhythm as charted. NC 2L. Puree diet to be initiated tomorrow. No bowel movement this shift. Urine output as charted. Patient turned/repositioned Q2H per protocol. Comfort and safety measures/ fall precautions in place. All of patient's needs met, and no acute distress/events.
[2018-05-20] MEDS: ATORVASTATIN 10 MG TAB PO SCH (21:26)
[2018-05-21] VITALS (12 sets, daily range): BP systolic 121–142; BP diastolic 60–66; PULSE 35–84; RESP 18–22
[2018-05-21] MEDS: INSULIN ASPART [NOVOLOG] 3 ML PEN SC SCH ×4 (01:00→13:00)
[2018-05-21] MEDS: LEVOTHYROXINE 137 MCG TAB PO SCH (06:24)
[2018-05-21] MEDS: PANTOPRAZOLE 40 MG INJ IV SCH (06:24)
[2018-05-21] MEDS: BALSAM PERU/CASTOR OIL 60 GM TUBE TOP SCH ×2 (08:41→21:03)
[2018-05-21] MEDS: ACETAZOLAMIDE 500 MG INJ IV SCH (08:41)
[2018-05-21] MEDS: TOBRAMYCIN 0.3% 5 ML OPH BOTH EYES SCH ×2 (08:41→21:03)
[2018-05-21] MEDS: ALLOPURINOL 100 MG TAB PO SCH (08:42)
[2018-05-21] MEDS: CHOLECALCIFEROL 1,000 UNIT TAB PO SCH (08:42)
--- NOTE | 2018-05-21 09:52 | CONS ---
Date/Time of Note Date/Time of Note DATE: 05/21/18 TIME: 09:50 Assessment/Plan Assessment/Plan Additional Assessment/Plan Assessment recommendations; 1. Patient with history of atrial fibrillation admitted to ICU because of bradycardia with interval spontaneous improvement. 2. Multiple other comorbidities including history of prior CABG, hypothyroidism, interstitial lung disease, and hypothyroidism. Continue current supportive care. Consider discharge. Consultation Date/Type/Reason Admit Date/Time May 17, 2018 at 05:26 Initial Consult Date 05/17/18 Type of Consult Pulmonary/critical care History of presenting illness; patient is a 83-year-old male who was transferred over to ICU from [facility] for hypoxemia and hypotension. Patient also developed bradycardia with history of atrial fibrillation. By the time I saw him, patient is on BiPAP and because of advanced dementia is unable to give any history whatsoever by himself. History was obtained from medical records. Past medical history; 1. Advanced dementia. 2. Likely underlying cardiomyopathy. 3. Prior CABG. 4. History of gout. Medications; reviewed. Allergies; none. Family history, social history, occupational history is not available. Review of system; unable to be obtained. General exam; elderly male, on BiPAP, unresponsive, currently in no distress. Requesting Provider: MAIN LANG MD 24 HR Interval Summary Free Text/Dictation Patient condition is markedly improved. Has been transferred out of ICU to medical floor. Denies any shortness of breath, chest pain. No further bradyarrhythmia. General exam; elderly male, awake and alert. Currently in no distress. Exam/Review of Systems Vital Signs Vitals Vital Signs Date Temp Pulse Resp B/P (MAP) Pulse Ox O2 O2 Flow FiO2 Time Delivery Rate 05/21/18 Nasal 3.0 08:54 Cannula 05/21/18 65 08:01 05/21/18 96.6 20 138/60 100 07:07 (86) 05/17/18 30 11:40 Intake and Output 05/20/18 05/20/18 05/21/18 1515:00 23:00 07:00 IntakeIntake Total 570 ml 130 ml 10 ml OutputOutput Total 330 ml 100 ml 700 ml BalanceBalance 240 ml 30 ml -690 ml Exam H EENT exam; supple neck, no JVD. No lymphadenopathy. Midline trachea. No thyromegaly. Patient has multiple carious teeth. Chest exam; diminished but clear breath sounds. S1-S2 audible, no murmurs. Irregular rhythm. There is a well-healed sternal scar. Abdomen exam; soft, no organomegaly. Bowel sounds audible. Nontender. Extremity exam; no edema or clubbing. LAUNDERER HAND exam; no focal deficit. Medications Medications Current Medications Dopamine HCl/ Dextrose 250 ml @ 6.405 mls/ hr TITRATE IV Last administered on 05/17/18 23:09; Admin Dose 6.405 MLS/HR; Start 05/17/18 at 06:30 Acetaminophen (Tylenol Tab) 650 mg Q6H PRN PO MILD PAIN(1-3)OR ELEVATED TEMP; Start 05/17/18 at 06:30 Acetazolamide (Diamox) 500 mg DAILY IV Last administered on 05/21/18 08:41; Admin Dose 500 MG; Start 05/17/18 at 09:00 Allopurinol (Zyloprim) 200 mg DAILY PO Last administered on 05/21/18 08:42; Admin Dose 200 MG; Start 05/17/18 at 09:00 Atorvastatin Calcium (Lipitor) 10 mg HS PO Last administered on 05/20/18 21:26; Admin Dose 10 MG; Start 05/17/18 at 21:00 Cholecalciferol (Vitamin D) 5,000 unit DAILY PO Last administered on 05/21/18 08:42; Admin Dose 5,000 UNIT; Start 05/17/18 at 09:00 Levothyroxine Sodium (Synthroid) 137 mcg DAILY@06 PO Last administered on 05/21/18 06:24; Admin Dose 137 MCG; Start 05/18/18 at 06:00 Ondansetron HCl (Zofran Inj) 4 mg Q4H PRN IV NAUSEA AND/OR VOMITING; Start 05/17/18 at 06:30 Pantoprazole (Protonix Iv) 40 mg DAILY@06 IV Last administered on 05/21/18 06:24; Admin Dose 40 MG; Start 05/17/18 at 06:00 Tobramycin Sulfate (Tobrex 0.3% Oph Drop) 1 drop BID BOTH EYES Last administered on 05/21/18 08:41; Admin Dose 1 DROP; Start 05/17/18 at 09:00 Miscellaneous Information 1 ea NOTE XX ; Start 05/17/18 at 07:00 Glucose (Glutose) 15 gm Q15M PRN PO DECREASED GLUCOSE; Start 05/17/18 at 07:00 Glucose (Glutose) 22.5 gm Q15M PRN PO DECREASED GLUCOSE; Start 05/17/18 at 07:00 Dextrose (D50w Syringe) 25 ml Q15M PRN IV DECREASED GLUCOSE; Start 05/17/18 at 07:00 Dextrose (D50w Syringe) 50 ml Q15M PRN IV DECREASED GLUCOSE; Start 05/17/18 at 07:00 Glucagon (Glucagen) 1 mg Q15M PRN IM DECREASED GLUCOSE; Start 05/17/18 at 07:00 Glucose (Glutose) 15 gm Q15M PRN BUCCAL DECREASED GLUCOSE; Start 05/17/18 at 07:00 Insulin Aspart (Novolog Insulin Pen) NOVOLOG *MILD* ALGORI... Q4 SC Last administered on 05/17/18at 21:42; Admin Dose 1 UNIT; Start 05/17/18 at 13:00 Albuterol (Proventil 0.083% (Neb)) 2.5 mg Q6H RESP THERAPY PRN HHN WHEEZING; Start 05/19/18 at 09:00 DANA YODER May 21, 2018 09:52
--- NOTE | 2018-05-21 10:24 | CONS ---
Date/Time of Note Date/Time of Note DATE: 05/21/18 TIME: 10:21 Consult Date/Type/Reason Admit Date/Time May 17, 2018 at 05:26 Initial Consult Date 05/17/18 Type of Consultation: cv Requesting Provider: MAIN LANG MD Subjective cardiology follow up progress note S: Discussed with the staff on telemetry was reviewed. Patient remains in atrial fibrillation mostly with slow ventricular response but no long pauses is seen overnight he is off dopamine drip He is more awake and is able to answer appropriately no chest pain or pressure or syncope Objective: General: Elderly looking gentleman. On oxygen HEENT: NC/AT. Eyes are closed NECK:. no stridor. CV: Irregularly irregular systolic murmur; no gallop or rubs. PULM: no wheezing + rhonchi. GI: SOFT, NT, ND, no rebound or guarding Extremity: +B/L LE edema. no clubbing. neuro: awake and alert. responds appropriately now Psych: calm rectal: deferred : normal Derm: Multiple diffuse ecchymosis Echocardiogram done 05/14/2018 which was personally reviewed shows: There is severe enlargement of left atrium. There is mild enlargement of right atrium. Lower limits of normal systolic function. Normal left ventricular cavity size. Mild concentric left ventricular hypertrophy. Ejection fraction is visually estimated at 50-55 %. Moderate mitral leaflet calcification. Severe mitral annular calcification. Trace mitral regurgitation. Mild to moderate mitral stenosis. Mitral valve Max Velocity 2.40 m/sec. MaxPG 22.00 mmHg. MeanPG 7.00 mmHg. Aortic valve not well visualized. Aortic Valve Bio Prosthesis. Aortic valve Max velocity 2.55 m/sec. Max PG 26.00 mmHg. Mean PG 13.00 mmHg. Mild aortic valve regurgitation. Normal appearance of the tricuspid valve. Estimated peak PA systolic pressure 78 mmHg. There is moderate tricuspid regurgitation. Inferior vena cava without respiratory collapse, however, patient on ventilator. Normal pericardium with no significant pericardial effusion. Chest x-ray shows: Cardiomegaly with calcified atherosclerosis in the aorta. Central pulmonary vascular congestion and interstitial prominence in both lungs. Stable bilateral perihilar and lower lung infiltrates with small pleural effu sions. Elevated right hemidiaphragm. CXR 05/19/18: 1. Moderate cardiomegaly. 2. Small to moderate bilateral pleural effusions. 3. Mild pulmonary edema, similar from prior study. Bibasilar atelectasis. Objective Vital Signs Date Temp Pulse Resp B/P (MAP) Pulse Ox O2 O2 Flow FiO2 Time Delivery Rate 05/21/18 Nasal 3.0 08:54 Cannula 05/21/18 65 08:01 05/21/18 96.6 20 138/60 100 07:07 (86) 05/17/18 30 11:40 Intake and Output 05/20/18 05/20/18 05/21/18 1515:00 23:00 07:00 IntakeIntake Total 570 ml 130 ml 10 ml OutputOutput Total 330 ml 100 ml 700 ml BalanceBalance 240 ml 30 ml -690 ml Results/Medications Result Diagram: 05/21/18 0544 05/21/18 0544 Results 24 hrs Laboratory Tests Test 05/20/18 13:16 05/20/18 17:56 05/20/18 20:35 05/21/18 05:44 Bedside Glucose 120 102 95 White Blood 7.6 Count Red Blood Count 3.19 L Hemoglobin 10.4 L Hematocrit 35.0 L Mean Corpuscular 109.7 H Volume Mean Corpuscular 32.6 Hemoglobin Mean Corpuscular 29.7 L Hemoglobin Sharita nt Red Cell 19.8 H Distribution Width Platelet Count 149 Mean Platelet 11.5 H Volume Immature 5.100 H Granulocytes % Neutrophils % 69.6 Lymphocytes % 12.3 L Monocytes % 8.4 Eosinophils % 3.8 Basophils % 0.8 Nucleated Red 0.3 H Blood Cells % Immature 0.390 H Granulocytes # Neutrophils # 5.3 Lymphocytes # 0.9 Monocytes # 0.6 Eosinophils # 0.3 Basophils # 0.1 Nucleated Red 0.0 Blood Cells # Sodium Level 144 Potassium Level 4.2 Chloride Level 104 Carbon Dioxide 35 H Level Anion Gap 5 Blood Urea 25 H Nitrogen Creatinine 1.17 Est Glomerular Filtrat Rate mL/min Glucose Level 91 Calcium Level 9.8 Phosphorus Level 2.3 L Magnesium Level 2.0 Test 05/21/18 05:46 Bedside Glucose 85 Medications Current Medications Dopamine HCl/ Dextrose 250 ml @ 6.405 mls/ hr TITRATE IV Last administered on 05/17/18at 23:09; Admin Dose 6.405 MLS/HR; Start 05/17/18 at 06:30 Acetaminophen (Tylenol Tab) 650 mg Q6H PRN PO MILD PAIN(1-3)OR ELEVATED TEMP; Start 05/17/18 at 06:30 Acetazolamide (Diamox) 500 mg DAILY IV Last administered on 05/21/18at 08:41; Admin Dose 500 MG; Start 05/17/18 at 09:00 Allopurinol (Zyloprim) 200 mg DAILY PO Last administered on 05/21/18 08:42; Admin Dose 200 MG; Start 05/17/18 at 09:00 Atorvastatin Calcium (Lipitor) 10 mg HS PO Last administered on 05/20/18at 21:26; Admin Dose 10 MG; Start 05/17/18 at 21:00 Cholecalciferol (Vitamin D) 5,000 unit DAILY PO Last administered on 05/21/18 08:42; Admin Dose 5,000 UNIT; Start 05/17/18 at 09:00 Levothyroxine Sodium (Synthroid) 137 mcg DAILY@06 PO Last administered on 1 07/22/17at 06:24; Admin Dose 137 MCG; Start 05/18/18 at 06:00 Ondansetron HCl (Zofran Inj) 4 mg Q4H PRN IV NAUSEA AND/OR VOMITING; Start 05/17/18 at 06:30 Pantoprazole (Protonix Iv) 40 mg DAILY@06 IV Last administered on 05/21/18at 06:24; Admin Dose 40 MG; Start 05/17/18 at 06:00 Tobramycin Sulfate (Tobrex 0.3% Oph Drop) 1 drop BID BOTH EYES Last administered on 05/21/18at 08:41; Admin Dose 1 DROP; Start 05/17/18 at 09:00 Miscellaneous Information 1 ea NOTE XX ; Start 05/17/18 at 07:00 Glucose (Glutose) 15 gm Q15M PRN PO DECREASED GLUCOSE; Start 05/17/18 at 07:00 Glucose (Glutose) 22.5 gm Q15M PRN PO DECREASED GLUCOSE; Start 05/17/18 at 07:00 Dextrose (D50w Syringe) 25 ml Q15M PRN IV DECREASED GLUCOSE; Start 05/17/18 at 07:00 Dextrose (D50w Syringe) 50 ml Q15M PRN IV DECREASED GLUCOSE; Start 05/17/18 at 07:00 Glucagon (Glucagen) 1 mg Q15M PRN IM DECREASED GLUCOSE; Start 05/17/18 at 07:00 Glucose (Glutose) 15 gm Q15M PRN BUCCAL DECREASED GLUCOSE; Start 05/17/18 at 07:00 Insulin Aspart (Novolog Insulin Pen) NOVOLOG *MILD* ALGORI... Q4 SC Last administered on 05/17/18at 21:42; Admin Dose 1 UNIT; Start 05/17/18 at 13:00 Albuterol (Proventil 0.083% (Neb)) 2.5 mg Q6H RESP THERAPY PRN HHN WHEEZING; Start 05/19/18 at 09:00 Assessment/Plan Chief Complaint/Hosp Course 1. Atrial fibrillation with slow ventricular response and multiple pauses and with 1 long pause of more than 20 seconds which happened during the NG tube placement improved HR now 2. Hypercapnic respiratory failure 3. Status post Pseudomonas pneumonia and bacteremia 4. Encephalopathy 5. History of hypertension 6. History of possible coronary bypass graft 7. 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 Anemia 9. CHF pulm HTN, 10. pleural effusion Recommendations: Antibiotic management as per ID recommendation Supportive care and respiratory care as per pulmonary. We will closely monitor on telemetry. Digoxin and Coreg has been discontinued. diuresis with diamox per pulm We will continue to monitor him closely. CODE STATUS is full code for now but family/friend is considering changing it given his recent Pseudomonas bacteremia I am very concerned about placing pacemaker in him. cont tele Thank you for his referral. We will continue to follow along with you SAMARIA AGUILAR MD [facility] SAMARIA AGUILAR MD May 21, 2018 10:23
--- NOTE | 2018-05-21 14:29 | CONS ---
Date/Time of Note Date/Time of Note DATE: 05/21/18 TIME: 14:28 Assessment/Plan Assessment/Plan Chief Complaint/Hosp Course Patient was transferred to telemetry he is awake looks comfortable on nasal cannula no fevers overnight Temperature 96.4 pulse 79 respirations 20 blood pressure 142/63 saturation 100% on nasal cannula WBC 7.6 H&H 10.4 and 35 platelets 149 neutrophils 69.6 BUN 25 creatinine 1.17 Antimicrobials: non s/p Merrem Physical examination: This is a chronically ill-appearing well-developed fragile elderly man who is lethargic, comfortable on nasal cannula and in no distress. Head atraumatic normocephalic, sclera nonicteric. Neck is supple. Chest rise symmetrical, breath sounds diminished bases, heart: S1-S2. Abdomen distended soft bowel sounds present extremities with trace edema Assessment: 1. S/p symptomatic bradycardia 2. Acute respiratory failure, CHF/pneumonia 3. Status post Pseudomonas bacteremia, blood cultures since May 08 negative 4. Encephalopathy 5. Coronary artery disease with a history of CABG and valve replacement Plan: Clinically stable, completed antibiotics, continue aspiration precautions, follow pulmonary and cardiology recommendations Consultation Date/Type/Reason Admit Date/Time May 17, 2018 at 05:26 Initial Consult Date 05/17/18 Type of Consult id Requesting Provider: MAIN LANG MD Exam/Review of Systems Vital Signs Vitals Vital Signs Date Temp Pulse Resp B/P (MAP) Pulse Ox O2 O2 Flow FiO2 Time Delivery Rate 05/21/18 74 12:01 05/21/18 96.4 20 142/63 100 Room Air 11:35 (89) 05/21/18 3.0 08:54 05/17/18 30 11:40 Intake and Output 05/20/18 05/20/18 05/21/18 1515:00 23:00 07:00 IntakeIntake Total 570 ml 130 ml 10 ml OutputOutput Total 330 ml 100 ml 700 ml BalanceBalance 240 ml 30 ml -690 ml Medications Medications Current Medications Dopamine HCl/ Dextrose 250 ml @ 6.405 mls/ hr TITRATE IV Last administered on 05/17/18at 23:09; Admin Dose 6.405 MLS/HR; Start 05/17/18 at 06:30 Acetaminophen (Tylenol Tab) 650 mg Q6H PRN PO MILD PAIN(1-3)OR ELEVATED TEMP; Start 05/17/18 at 06:30 Acetazolamide (Diamox) 500 mg DAILY IV Last administered on 05/21/18at 08:41; Admin Dose 500 MG; Start 05/17/18 at 09:00 Allopurinol (Zyloprim) 200 mg DAILY PO Last administered on 05/21/18 08:42; Admin Dose 200 MG; Start 05/17/18 at 09:00 Atorvastatin Calcium (Lipitor) 10 mg HS PO Last administered on 05/20/18at 21:26; Admin Dose 10 MG; Start 05/17/18 at 21:00 Cholecalciferol (Vitamin D) 5,000 unit DAILY PO Last administered on 05/21/18 08:42; Admin Dose 5,000 UNIT; Start 05/17/18 at 09:00 Levothyroxine Sodium (Synthroid) 137 mcg DAILY@06 PO Last administered on 05/21/18at 06:24; Admin Dose 137 MCG; Start 05/18/18 at 06:00 Ondansetron HCl (Zofran Inj) 4 mg Q4H PRN IV NAUSEA AND/OR VOMITING; Start 05/17/18 at 06:30 Pantoprazole (Protonix Iv) 40 mg DAILY@06 IV Last administered on 05/21/18at 06:24; Admin Dose 40 MG; Start 05/17/18 at 06:00 Tobramycin Sulfate (Tobrex 0.3% Oph Drop) 1 drop BID BOTH EYES Last administered on 05/21/18at 08:41; Admin Dose 1 DROP; Start 05/17/18 at 09:00 Miscellaneous Information 1 ea NOTE XX ; Start 05/17/18 at 07:00 Glucose (Glutose) 15 gm Q15M PRN PO DECREASED GLUCOSE; Start 05/17/18 at 07:00 Glucose (Glutose) 22.5 gm Q15M PRN PO DECREASED GLUCOSE; Start 05/17/18 at 07:00 Dextrose (D50w Syringe) 25 ml Q15M PRN IV DECREASED GLUCOSE; Start 05/17/18 at 07:00 Dextrose (D50w Syringe) 50 ml Q15M PRN IV DECREASED GLUCOSE; Start 05/17/18 at 07:00 Glucagon (Glucagen) 1 mg Q15M PRN IM DECREASED GLUCOSE; Start 05/17/18 at 07:00 Glucose (Glutose) 15 gm Q15M PRN BUCCAL DECREASED GLUCOSE; Start 05/17/18 at 07:00 Albuterol (Proventil 0.083% (Neb)) 2.5 mg Q6H RESP THERAPY PRN HHN WHEEZING; Start 05/19/18 at 09:00 Insulin Aspart (Novolog Insulin Pen) NOVOLOG *MILD* ALGORI... AC MEALS AND BEDTIME SC ; Start 05/21/18 at 17:30; Status UNKARINA HARPER NP May 21, 2018 14:28
--- NOTE | 2018-05-21 14:46 | PN ---
DATE: 05/21/2018 SUBJECTIVE: The patient was seen, looks much better today. PHYSICAL EXAMINATION: VITAL SIGNS: Temperature 96.4, pulse 74, respirations 20, blood pressure 142/63, saturation 100% on supplemental 3-liter nasal cannula. GENERAL: In no acute distress. HEENT: The patient is pale. CARDIOVASCULAR: S1, S2. LUNGS: Clear. ABDOMEN: Soft. EXTREMITIES: No clubbing, cyanosis or edema. LABORATORY DATA: White count 7.6, hemoglobin 10.4, hematocrit 35, platelet count 149, neutrophils 69 %, lymphocytes 12%. Chemistry: Sodium 144, potassium 4.2, chloride 104, bicarbonate 25, BUN is 25, creatinine 1.17, glucose of 91. Last glucose level of 85. MRSA screening is negative. DIAGNOSTIC DATA: Chest x-ray dated 05/19/2018 shows small to moderate bilateral pleural effusion, mi ld pulmonary edema similar to the prior study, bibasilar atelectasis. MEDICATIONS: 1. Albuterol every 6 hours. 2. Synthroid 137 mcg daily. 3. Lipitor 10 mg at bedtime. 4. Insulin aspart per sliding scale. 5. Diamox 500 IV daily. 6. Allopurinol 200 daily. 7. Vitamin D 5000 daily. 8. Tobramycin ophthalmic as directed. 9. Tylenol. 10. Zofran. 11. Protonix as directed. ASSESSMENT AND PLAN: This is an 83-year-old unfortunate male with history of vascular kaylie ntia, debilitated state, atrial fibrillation, congestive heart failure, hypertension, hypothyroidism, diabetes mellitus, valvular heart disease, who presented with acute hypoxemic hypercapnic respirator y failure, recent urinary tract infection, bacteremia, organism Pseudomonas aeruginosa, now presented with worsening encephalopathy, respiratory failure, bradycardia now markedly improved. 1. Respiratory: Breathing comfortably on nasal cannula, p.r.n. BiPAP. 2. Cardiovascular: Off digoxin and beta blockers. His heart rate is stable off dopamine. 3. Infectious disease: Status post treatment for Pseudomonas aeruginosa bacteremia. 4. Generalized weakness. Physical therapy as tolerated. 5. Dysphagia. Tolerating pureed diet. 6. Hypothyroidism. Continue Synthroid. 7. Diabetes mellitus. Continue Accu-Cheks. Glucose levels are good. 8. Dehydration, status post hydration. 9. Left testicular mass. Supportive care. 10. Continue Protonix for gastrointestinal prophylaxis. 11. Anemia. Transfuse p.r.n. 12. Currently in telemetry doing much better. If this continues, discharge planning back to longterm facility. We will follow. Dictated By: MAIN BARBOZA/MAMI Conf#: [id number] DID#: [id number] CC: CHUCHO MALONEY MD;*EndCC*
[2018-05-21] MEDS: Insulin NOVOLOG SS MILD Algorithm (SS with meals and bedtime) SC SCH ×2 (17:25→21:00)
[2018-05-21] MEDS ORDERED: INSULIN ASPART [NOVOLOG] 3 ML PEN SC SCH (17:30)
--- NOTE | 2018-05-21 18:12 | NUR ---
EOSS: PT is AO x 1-2, confused. Afib on tele, on O2 3L NC, O2 Sat WNL. Pt placed on low air loss mattress, able to turn himself with encouragement. Started pureed diet, with nectar thick liquids, tolerating well. Wound care done according to wound care recommendations. Stable for handoff to oncoming shift.
[2018-05-21] MEDS: ATORVASTATIN 10 MG TAB PO SCH (21:03)
[2018-05-22] VITALS (16 sets, daily range): BP systolic 105–154; BP diastolic 51–70; PULSE 61–82; RESP 17–24
[2018-05-22] MEDS: LEVOTHYROXINE 137 MCG TAB PO SCH (05:27)
[2018-05-22] MEDS: PANTOPRAZOLE 40 MG INJ IV SCH (05:27)
[2018-05-22] MEDS: Insulin NOVOLOG SS MILD Algorithm (SS with meals and bedtime) SC SCH ×4 (07:00→21:00)
--- NOTE | 2018-05-22 08:18 | CONS ---
Date/Time of Note Date/Time of Note DATE: 05/22/18 TIME: 08:17 Consult Date/Type/Reason Admit Date/Time May 17, 2018 at 05:26 Initial Consult Date 05/17/18 Type of Consultation: cv Requesting Provider: MAIN LANG MD Subjective cardiology follow up progress note S: Discussed with the staff on telemetry was reviewed. Patient remains in atrial fibrillation mostly with slow ventricular response but no long pauses is seen overnight . Heart rate has been stable is in the 50s-70s mostly he is off dopamine drip no chest pain or pressure or syncope reported Objective: General: Elderly looking gentleman. On oxygen HEENT: NC/AT. Eyes are closed NECK:. no stridor. CV: Irregularly irregular systolic murmur; no gallop or rubs. PULM: no wheezing + rhonchi. GI: SOFT, NT, ND, no rebound or guarding Extremity: +B/L LE edema. no clubbing. neuro: Comfortably sleeping Psych: calm rectal: deferred : normal Derm: Multiple diffuse ecchymosis Echocardiogram done 05/14/2018 which was personally reviewed shows: There is severe enlargement of left atrium. There is mild enlargement of right atrium. Lower limits of normal systolic function. Normal left ventricular cavity size. Mild concentric left ventricular hypertrophy. Ejection fraction is visually estimated at 50-55 %. Moderate mitral leaflet calcification. Severe mitral annular calcification. Trace mitral regurgitation. Mild to moderate mitral stenosis. Mitral valve Max Velocity 2.40 m/sec. MaxPG 22.00 mmHg. MeanPG 7.00 mmHg. Aortic valve not well visualized. Aortic Valve Bio Prosthesis. Aortic valve Max velocity 2.55 m/sec. Max PG 26.00 mmHg. Mean PG 13.00 mmHg. Mild aortic valve regurgitation. Normal appearance of the tricuspid valve. Estimated peak PA systolic pressure 78 mmHg. There is moderate tricuspid regurgitation. Inferior vena cava without respiratory collapse, however, patient on ventilator. Normal pericardium with no significant pericardial effusion. Chest x-ray shows: Cardiomegaly with calcified atherosclerosis in the aorta. Central pulmonary vascular congestion and interstitial prominence in both lungs. Stable bilateral perihilar and lower lung infiltrates with small pleural effusions. Elevated right hemidiaphragm. CXR 05/19/18: 1. Moderate cardiomegaly. 2. Small to moderate bilateral pleural effusions. 3. Mild pulmonary edema, similar from prior study. Bibasilar atelectasis. Objective Vital Signs Date Temp Pulse Resp B/P (MAP) Pulse Ox O2 O2 Flow FiO2 Time Delivery Rate 05/22/18 96.5 73 18 132/59 100 Nasal 07:20 (83) Cannula 05/22/18 3.0 07:16 Intake and Output 05/21/18 05/21/18 05/22/18 1515:00 23:00 07:00 IntakeIntake Total 480 ml 100 ml OutputOutput Total 350 ml 350 ml BalanceBalance 130 ml -250 ml Results/Medications Result Diagram: 05/21/18 0544 05/21/18 0544 Results 24 hrs Laboratory Tests Test 05/21/18 17:12 05/21/18 20:45 05/22/18 06:49 Bedside Glucose 106 108 117 Medications Current Medications Dopamine HCl/ Dextrose 250 ml @ 6.405 mls/ hr TITRATE IV Last administered on 05/17/18at 23:09; Admin Dose 6.405 MLS/HR; Start 05/17/18 at 06:30 Acetaminophen (Tylenol Tab) 650 mg Q6H PRN PO MILD PAIN(1-3)OR ELEVATED TEMP; Start 05/17/18 at 06:30 Acetazolamide (Diamox) 500 mg DAILY IV Last administered on 05/21/18at 08:41; Admin Dose 500 MG; Start 05/17/18 at 09:00 Allopurinol (Zyloprim) 200 mg DAILY PO Last administered on 05/21/18at 08:42; Admin Dose 200 MG; Start 05/17/18 at 09:00 Atorvastatin Calcium (Lipitor) 10 mg HS PO Last administered on 05/21/18at 21:03; Admin Dose 10 MG; Start 05/17/18 at 21:00 Cholecalciferol (Vitamin D) 5,000 unit DAILY PO Last administered on 05/21/18 08:42; Admin Dose 5,000 UNIT; Start 05/17/18 at 09:00 Levothyroxine Sodium (Synthroid) 137 mcg DAILY@06 PO Last administered on 05/22/18at 05:27; Admin Dose 137 MCG; Start 05/18/18 at 06:00 Ondansetron HCl (Zofran Inj) 4 mg Q4H PRN IV NAUSEA AND/OR VOMITING; Start 05/17/18 at 06:30 Pantoprazole (Protonix Iv) 40 mg DAILY@06 IV Last administered on 05/22/18at 05:27; Admin Dose 40 MG; Start 05/17/18 at 06:00 Tobramycin Sulfate (Tobrex 0.3% Oph Drop) 1 drop BID BOTH EYES Last administered on 05/21/18at 21:03; Admin Dose 1 DROP; Start 05/17/18 at 09:00 Miscellaneous Information 1 ea NOTE XX ; Start 05/17/18 at 07:00 Glucose (Glutose) 15 gm Q15M PRN PO DECREASED GLUCOSE; Start 05/17/18 at 07:00 Glucose (Glutose) 22.5 gm Q15M PRN PO DECREASED GLUCOSE; Start 05/17/18 at 07:00 Dextrose (D50w Syringe) 25 ml Q15M PRN IV DECREASED GLUCOSE; Start 05/17/18 at 07:00 Dextrose (D50w Syringe) 50 ml Q15M PRN IV DECREASED GLUCOSE; Start 05/17/18 at 07:00 Glucagon (Glucagen) 1 mg Q15M PRN IM DECREASED GLUCOSE; Start 05/17/18 at 07:00 Glucose (Glutose) 15 gm Q15M PRN BUCCAL DECREASED GLUCOSE; Start 05/17/18 at 07:00 Albuterol (Proventil 0.083% (Neb)) 2.5 mg Q6H RESP THERAPY PRN HHN WHEEZING; Start 05/19/18 at 09:00 Insulin Aspart (Novolog Insulin Pen) (Adult SC Insulin - Mild Algorithm)... AC MEALS AND BEDTIME SC ; Start 05/21/18 at 17:30 Assessment/Plan Chief Complaint/Hosp Course 1. Atrial fibrillation with slow ventricular response and multiple pauses and with 1 long pause of more than 20 seconds which happened during the NG tube placement improved HR now 2. Hypercapnic respiratory failure 3. Status post Pseudomonas pneumonia and bacteremia 4. Encephalopathy 5. History of hypertension 6. History of possible coronary bypass graft 7. 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 Anemia 9. CHF pulm HTN, 10. pleural effusion Recommendations: Antibiotic management as per ID recommendation Supportive care and respiratory care as per pulmonary. We will closely monitor on telemetry. Digoxin and Coreg has been discontinued. diuresis with diamox per pulm We will continue to monitor him closely. CODE STATUS is full code for now given his recent Pseudomonas bacteremia I am very concerned about placing pacemaker in him. Heart rate is currently responding off of AV gianluca blocking agents cont tele Thank you for his referral. We will continue to follow along with you SAMARIA AGUILAR MD [facility] SAMARIA AGUILAR MD May 22, 2018 08:18
[2018-05-22] MEDS: ALLOPURINOL 100 MG TAB PO SCH (08:37)
[2018-05-22] MEDS: BALSAM PERU/CASTOR OIL 60 GM TUBE TOP SCH ×2 (08:37→21:00)
[2018-05-22] MEDS: CHOLECALCIFEROL 1,000 UNIT TAB PO SCH (08:37)
[2018-05-22] MEDS: TOBRAMYCIN 0.3% 5 ML OPH BOTH EYES SCH ×2 (08:38→22:04)
[2018-05-22] MEDS: ACETAZOLAMIDE 500 MG INJ IV SCH (08:38)
--- NOTE | 2018-05-22 09:19 | NUR ---
Attempted to see patient for dysphagia f/u. RN present. Unable to arouse pt despite verbal prompts and sternal rubs. Not safe for PO intake at this time. RN reported he required feeding assist with breakfast meal today, but no concerns for s/s asp. However RN states pt had better performance yesterday. To f/u as schedule permits.
--- NOTE | 2018-05-22 09:47 | CONS ---
Date/Time of Note Date/Time of Note DATE: 05/22/18 TIME: 09:46 Assessment/Plan Assessment/Plan Assessment/Plan Assessment and recommendations; 1. Patient with history of atrial fibrillation admitted to ICU due to teja ycardia with interval improvement spontaneously. Transferred back to telemetry unit with stable hemodynamics. 2. Multiple other comorbidities include history of chronic atrial fibrillation, prior CABG, interstitial lung disease, and hypothyroidism. Continue current supportive care. Consider discharge. Further recommendations per endocrinologist. Result Diagram: 05/21/18 0544 05/21/18 0544 Results 24hrs Laboratory Tests Test 05/21/18 17:12 05/21/18 20:45 05/22/18 06:49 Bedside Glucose 106 108 117 Consultation Date/Type/Reason Admit Date/Time May 17, 2018 at 05:26 Initial Consult Date 05/17/18 Type of Consult Pulmonary/critical care History of presenting illness; patient is a 83-year-old male who was transferred over to ICU from [facility] for hypoxemia and hypotension. Patient also developed bradycardia with history of atrial fibrillation. By the time I saw him, patient is on BiPAP and because of advanced dementia is unable to give any history whatsoever by himself. History was obtained from medical records. Past medical history; 1. Advanced dementia. 2. Likely underlying cardiomyopathy. 3. Prior CABG. 4. History of gout. Medications; reviewed. Allergies; none. Family history, social history, occupational history is not available. Review of system; unable to be obtained. General exam; elderly male, on BiPAP, unresponsive, currently in no distress. Requesting Provider: MAIN LANG MD 24 HR Interval Summary Free Text/Dictation Patient's condition is stable. Denies any shortness of breath. Has remained hemodynamically stable. No further bradycardia arrhythmias reported. General exam; elderly male, awake alert, currently in no distress. Exam/Review of Systems Vital Signs Vitals Vital Signs Date Temp Pulse Resp B/P (MAP) Pulse Ox O2 O2 Flow FiO2 Time Delivery Rate 05/22/18 73 08:34 05/22/18 96.5 18 132/59 100 Nasal 07:20 (83) Cannula 05/22/18 3.0 07:16 Intake and Output 05/21/18 05/21/18 05/22/18 1515:00 23:00 07:00 IntakeIntake Total 480 ml 100 ml OutputOutput Total 350 ml 350 ml BalanceBalance 130 ml -250 ml Exam HEENT exam; supple neck, no JVD. No lymphadenopathy. Midline trachea. No thyromegaly. Patient has carious teeth. Chest exam; diminished but clear breath sounds. There is a well-healed sternal scar. Irregular rhythm. No murmurs. Abdomen exam; soft, no organomegaly. Nontender. Bowel sounds audible. Extremity exam; no peripheral edema or clubbing. FOREX TRADER exam; focal deficit. Medications Medications Current Medications Dopamine HCl/ Dextrose 250 ml @ 6.405 mls/ hr TITRATE IV Last administered on 05/17/18at 23:09; Admin Dose 6.405 MLS/HR; Start 05/17/18 at 06:30 Acetaminophen (Tylenol Tab) 650 mg Q6H PRN PO MILD PAIN(1-3)OR ELEVATED TEMP; Start 05/17/18 at 06:30 Acetazolamide (Diamox) 500 mg DAILY IV Last administered on 05/22/18at 08:38; Admin Dose 500 MG; Start 05/17/18 at 09:00 Allopurinol (Zyloprim) 200 mg DAILY PO Last administered on 05/22/18at 08:37; Admin Dose 200 MG; Start 05/17/18 at 09:00 Atorvastatin Calcium (Lipitor) 10 mg HS PO Last administered on 05/21/18at 21:03; Admin Dose 10 MG; Start 05/17/18 at 21:00 Cholecalciferol (Vitamin D) 5,000 unit DAILY PO Last administered on 05/22/18at 08:37; Admin Dose 5,000 UNIT; Start 05/17/18 at 09:00 Levothyroxine Sodium (Synthroid) 137 mcg DAILY@06 PO Last administered on 05/22/18at 05:27; Admin Dose 137 MCG; Start 05/18/18 at 06:00 Ondansetron HCl (Zofran Inj) 4 mg Q4H PRN IV NAUSEA AND/OR VOMITING; Start 05/17/18 at 06:30 Pantoprazole (Protonix Iv) 40 mg DAILY@06 IV Last administered on 05/22/18at 05:27; Admin Dose 40 MG; Start 05/17/18 at 06:00 Tobramycin Sulfate (Tobrex 0.3% Oph Drop) 1 drop BID BOTH EYES Last administered on 05/22/18at 08:38; Admin Dose 1 DROP; Start 05/17/18 at 09:00 Miscellaneous Information 1 ea NOTE XX ; Start 05/17/18 at 07:00 Glucose (Glutose) 15 gm Q15M PRN PO DECREASED GLUCOSE; Start 05/17/18 at 07:00 Glucose (Glutose) 22.5 gm Q15M PRN PO DECREASED GLUCOSE; Start 05/17/18 at 07:00 Dextrose (D50w Syringe) 25 ml Q15M PRN IV DECREASED GLUCOSE; Start 05/17/18 at 07:00 Dextrose (D50w Syringe) 50 ml Q15M PRN IV DECREASED GLUCOSE; Start 05/17/18 at 07:00 Glucagon (Glucagen) 1 mg Q15M PRN IM DECREASED GLUCOSE; Start 05/17/18 at 07:00 Glucose (Glutose) 15 gm Q15M PRN BUCCAL DECREASED GLUCOSE; Start 05/17/18 at 07:00 Albuterol (Proventil 0.083% (Neb)) 2.5 mg Q6H RESP THERAPY PRN HHN WHEEZING; Start 05/19/18 at 09:00 Insulin Aspart (Novolog Insulin Pen) (Adult SC Insulin - Mild Algorithm)... AC MEALS AND BEDTIME SC ; Start 05/21/18 at 17:30 DANA YODER May 22, 2018 09:47
[2018-05-22] MEDS: ASPIRIN 81 MG TAB PO SCH (10:59)
--- NOTE | 2018-05-22 11:10 | NUR ---
RN Notes: ABG results reported to MD, orders to place pt on bipap received. Notified RT.
--- NOTE | 2018-05-22 11:38 | NUR ---
SW: FOLLOW UP SW and Dr. Matos met with this patient at bedside to assess if he is AO and able to make his own decisions. At this time, patient not able to answer any questions. Dr. Matos and this technical report writer attempted to ask patient several times in different ways if he has a surrogate spokesperson or emergency contact, however were unsuccessful. Dr. Matos states he will continue to keep patient as full code at this time. SW to f/u with friend Tessa. Per Amy's notes, Tessa is the only person that is involved in patient's life /care. SW will f/u. SW remains available as needed.
--- NOTE | 2018-05-22 12:55 | PN ---
DATE: 05/22/2018 SUBJECTIVE: Patient ate most of his meal, but when we went to see him with the vp digital marketing social media and crm to disc uss the patient's advance directive patient noted to be more lethargic. We will order an arterial bl ood gas and a chest x-ray. Noted Dr. Rodriguez recommendations. PHYSICAL EXAMINATION: VITAL SIGNS: Blood pressure is 132/59, pulse 73, temperature 96.5, saturation 100% on nasal cannula 3 liters. GENERAL: The patient is frail, pale. CARDIOVASCULAR: S1, S2. LUNGS: Decreased bilaterally. ABDOMEN: Soft, nontender. EXTREMITIES: No clubbing, cyanosis, or edema. LABORATORY DATA: White count 7.6, hemoglobin 10.4, this was yesterday. Last glucose level 117, 108, and 106. MEDICATIONS: 1. Insulin Aspart. 2. Albuterol as directed. 3. Synthroid 137 daily. 4. Lipitor 10 mg at bedtime. 5. Diamox 500 IV daily. We can discontinue that. 6. Allopurinol 20 mg daily. 7. Vitamin D 5000 daily. 8. Tobramycin ophthalmic as directed twice a day. 9. Potassium protocol as directed. 10. Tylenol. 11. Zofran. 12. Protonix as directed. ASSESSMENT AND PLAN: This is an 83-year-old unfortunate male with history of vascular kaylie ntia, debilitated, atrial fibrillation, CHF, hypertension, hypothyroidism, diabetes mellitus, valvula r heart disease who presents with acute hypoxemic hypercapnic respiratory failure, recent urinary tra ct infection, bacteremia, organism Pseudomonas aeruginosa presented with worsening encephalopathy, re spiratory failure, marked bradycardia which improved. 1. Respiratory. The patient possibly with CO2 retention. Will obtain an arterial blood gas, may ne ed to place him back on BiPAP as he is more lethargic. 2. Cardiovascular. Continue above meds. Stable. Consider blood thinners with Lovenox. 3. Infectious disease treated for UTI Pseudomonas aeruginosa. 4. Generalized weakness. Physical therapy as tolerated. 5. Dysphagia. Tolerating pureed diet or soft diet. 6. Hypothyroidism, on Synthroid. 7. Diabetes mellitus. Continue Accu-Chek. 8. Dehydration, status post hydration with improved kidney function. 9. Left testicular mass. Monitor as patient has other more concerning issues. 10. Continue Protonix for GI prophylaxis. DISPOSITION: Back to sleep. No more awake. We will follow. Infectious status post treatment again for pseudomonas urinary tract infection and bacteremia and off antibiotics. We will monitor for any evidence of urinary retention. We will follow. Dictated By: MAIN BARBOZA/MAMI Conf#: [id number] DID#: [id number] CC: MAIN LANG MD;*EndCC*
--- NOTE | 2018-05-22 13:29 | CONS ---
Date/Time of Note Date/Time of Note DATE: 05/22/18 TIME: 13:28 Assessment/Plan Assessment/Plan Hospital Course Patient is awake looks comfortable on nasal cannula she is confused in no distress no fevers overnight, no labs today Chest x-ray this morning revealed slightly improved mild interstitial edema, unchanged bilateral pleural effusions Antimicrobials: none s/p Merrem Physical examination: This is a chronically ill-appearing well-developed fragile elderly man who is lethargic, comfortable on nasal cannula and in no distress. Head atraumatic normocephalic, sclera nonicteric. Neck is supple. Chest rise symmetrical, breath sounds diminished bases, heart: S1-S2. Abdomen distended soft bowel sounds present extremities with trace edema Assessment: 1. S/p symptomatic bradycardia 2. Acute respiratory failure, CHF/pneumonia 3. Status post Pseudomonas bacteremia, blood cultures since May 08 negative 4. Encephalopathy 5. Coronary artery disease with a history of CABG and valve replacement Plan: Clinically stable, off antibiotics, continue aspiration precautions, follow pulmonary and cardiology recommendations Result Diagram: 05/21/18 0544 05/21/18 0544 Results 24hrs Laboratory Tests Test 05/21/18 17:12 05/21/18 20:45 05/22/18 06:49 05/22/18 10:05 Bedside Glucose 106 108 117 Blood Gas Blood arterial Specimen Source Arterial Blood 05/22/2018 10:3 Date Drawn 5:21 AM Arterial Blood 7.219 *L pH (Temp corrected ) Arterial Blood 85.8 *H pCO2 (Temp correct) Arterial Blood 143.7 H pO2 (Temp corrected ) Arterial Blood 34.2 H HCO3 Arterial Blood 4.1 H Base Excess Arterial Blood 98.6 Oxygen Saturati on Roby Test ACCEPTAB Arterial Blood Right Radial Gas Puncture Site Arterial 1.0 Blood Carboxyhe moglobin Arterial Blood 0.3 Methemoglobin Oxyhemoglobin 97.3 Percent Blood Gas 37.0 Temperature Blood Gas NASAL CANNULA Modality FiO2 33.0 Blood Gas Peter HOBBS RN Critical Value Read Back Blood Gas TM Notified Whom Blood Gas 05/22/2018 10:4 Notified Time 5:10 AM Test 05/22/18 12:11 Bedside Glucose 116 Consultation Date/Type/Reason Admit Date/Time May 17, 2018 at 05:26 Initial Consult Date 05/17/18 Type of Consult id Requesting Provider: MAIN LANG MD Exam/Review of Systems Vital Signs Vitals Vital Signs Date Temp Pulse Resp B/P (MAP) Pulse Ox O2 O2 Flow FiO2 Time Delivery Rate 05/22/18 81 12:04 05/22/18 97.3 24 154/65 100 Nasal 11:10 (94) Cannula 05/22/18 3.0 07:16 Intake and Output 05/21/18 05/21/18 05/22/18 1515:00 23:00 07:00 IntakeIntake Total 480 ml 100 ml OutputOutput Total 350 ml 350 ml BalanceBalance 130 ml -250 ml Medications Medications Current Medications Acetaminophen (Tylenol Tab) 650 mg Q6H PRN PO MILD PAIN(1-3)OR ELEVATED TEMP; Start 05/17/18 at 06:30 Allopurinol (Zyloprim) 200 mg DAILY PO Last administered on 05/22/18at 08:37; Admin Dose 200 MG; Start 05/17/18 at 09:00 Atorvastatin Calcium (Lipitor) 10 mg HS PO Last administered on 05/21/18at 21:03; Admin Dose 10 MG; Start 05/17/18 at 21:00 Cholecalciferol (Vitamin D) 5,000 unit DAILY PO Last administered on 05/22/18at 08:37; Admin Dose 5,000 UNIT; Start 05/17/18 at 09:00 Levothyroxine Sodium (Synthroid) 137 mcg DAILY@06 PO Last administered on 05/22/18at 05:27; Admin Dose 137 MCG; Start 05/18/18 at 06:00 Ondansetron HCl (Zofran Inj) 4 mg Q4H PRN IV NAUSEA AND/OR VOMITING; Start 05/17/18 at 06:30 Pantoprazole (Protonix Iv) 40 mg DAILY@06 IV Last administered on 05/22/18at 0 5:27; Admin Dose 40 MG; Start 05/17/18 at 06:00 Tobramycin Sulfate (Tobrex 0.3% Oph Drop) 1 drop BID BOTH EYES Last administered on 05/22/18at 08:38; Admin Dose 1 DROP; Start 05/17/18 at 09:00 Miscellaneous Information 1 ea NOTE XX ; Start 05/17/18 at 07:00 Glucose (Glutose) 15 gm Q15M PRN PO DECREASED GLUCOSE; Start 05/17/18 at 07:00 Glucose (Glutose) 22.5 gm Q15M PRN PO DECREASED GLUCOSE; Start 05/17/18 at 07:00 Dextrose (D50w Syringe) 25 ml Q15M PRN IV DECREASED GLUCOSE; Start 05/17/18 at 07:00 Dextrose (D50w Syringe) 50 ml Q15M PRN IV DECREASED GLUCOSE; Start 05/17/18 at 07:00 Glucagon (Glucagen) 1 mg Q15M PRN IM DECREASED GLUCOSE; Start 05/17/18 at 07:00 Glucose (Glutose) 15 gm Q15M PRN BUCCAL DECREASED GLUCOSE; Start 05/17/18 at 07:00 Albuterol (Proventil 0.083% (Neb)) 2.5 mg Q6H RESP THERAPY PRN HHN WHEEZING; Start 05/19/18 at 09:00 Insulin Aspart (Novolog Insulin Pen) (Adult SC Insulin - Mild Algorithm)... AC MEALS AND BEDTIME SC ; Start 05/21/18 at 17:30 Aspirin (Aspirin) 81 mg DAILY PO Last administered on 05/22/18at 10:59; Admin Dose 81 MG; Start 05/22/18 at 10:30 KARINA LUNA NP May 22, 2018 13:29
--- NOTE | 2018-05-22 14:38 | NUR ---
Nutrition Notes Advanced dementia - Oral intake has not been documented by RN. Please consider documenting that. Multiple wounds - Rec daily MVI, Vit C therapy; rec zinc sulfate x 10 days. Will be sending Magic cup TID. Thank you!
--- NOTE | 2018-05-22 15:44 | NUR ---
CLARISSE ORTIZ S/Rosa RO AT [facility] AND PT MAY RETURN AT DISCHARGE. Addendum: 05/22/18 at 1545 by MARY KAY FOSTER RN, CM Amended: Links added.
--- NOTE | 2018-05-22 18:13 | NUR ---
EOSS: PT AO x 1, Afib on tele, started on Bipap PRN, and 4L O2NC. Maximum assistance with feeding, tolerating pureed diet and nectar thick liquids well. Pt repositioned Q2h, on low airloss mattress, bed alarm on, call light within reach. Stable for handoff to oncoming shift.
[2018-05-22] MEDS: ATORVASTATIN 10 MG TAB PO SCH (21:00)
[2018-05-22] MEDS ORDERED: HALOPERIDOL 5 MG INJ IV ONE (21:00)
--- NOTE | 2018-05-22 23:26 | NUR ---
Patient found to be lethargic, ABG and change in BiPAP settings were requested by RT. Atorvastatin PO was held due to patient's lethargy. ABG ordered per RT request, pH found to be 7.25, CO2 80.1. BiPAP settings were ordered to be changed per MD order to 20/5, RR 20 backup, titrating to keep SpO2 > 91%. Patient was found to be too lethargic to take PO Atorvastatin at this time. Will wait until later in the night. Addendum: 05/22/18 at 2330 by KARIME STEVENS RN Patient has kept taking off BiPAP machine, is anxious. Haldol 1 mg IV given per MD request. Patient is now more relaxed, compliant with BiPAP.
[2018-05-23] VITALS (20 sets, daily range): BP systolic 117–140; BP diastolic 60–73; PULSE 57–84; RESP 20–21
[2018-05-23] MEDS ORDERED: HALOPERIDOL 5 MG INJ IV PRN ×2 (00:30→01:00)
--- NOTE | 2018-05-23 00:50 | NUR ---
Patient has pulled off BiPAP machine, telemetry leads, and IV. Dr. Matos notified, order for Haldol 2 mg IV q4hr PRN. Also noted abdominal hernia on assessment. Dr Matos states that he is not concerned for this at the moment. Will continue to monitor.
[2018-05-23] MEDS: LEVOTHYROXINE 137 MCG TAB PO SCH (05:51)
[2018-05-23] MEDS: PANTOPRAZOLE 40 MG INJ IV SCH (05:51)
[2018-05-23] MEDS: Insulin NOVOLOG SS MILD Algorithm (SS with meals and bedtime) SC SCH ×4 (07:00→21:00)
--- NOTE | 2018-05-23 07:22 | NUR ---
EOSS N: A&Ox1-2, agitated due to BiPAP. Haldol 1mg given x1 with little effect. CV: AF controlled. Went to HR mid 30s x1. Otherwise vitals stable. R: BiPAP PM/PRN, increased from 15/5 to 20/5 due to ABG showing acidosis. GI: ACHS, BG wnl. : Scott maintained due to BPH Integ: Q2hr turning. All of patient's needs attended to. Hourly rounding. Will endorse care to oncoming nurse.
--- NOTE | 2018-05-23 08:28 | PN ---
DATE: 05/23/2018 SUBJECTIVE: The patient remains in guarded condition, requiring to be on BiPAP due to CO2 retention. The patient appears confused and will likely require also anxiolytics including Haldol at night so he can keep the BiPAP on. Without the BiPAP he is more confused and lethargic as noted yesterday. T he patient completed the course of his IV antibiotics for treatment of pseudomonas urinary tract infe ction and bacteremia. ID is following as well as pulmonary and cardiology. PHYSICAL EXAMINATION: VITAL SIGNS: Temperature 97, pulse 57, respirations 21, blood pressure 140/60, saturation 96% on 35% FIO2. GENERAL: The patient is lethargic, pale. HEENT: BiPAP in place now. CARDIOVASCULAR: S1 and S2. LUNGS: Mild rhonchi at the bases. ABDOMEN: Soft. EXTREMITIES: No clubbing, cyanosis, or edema. LABORATORY DATA: White count 6.7, hemoglobin 9.9, hematocrit 33, platelets 115, O2 sat 73%, 37 %. Chemistry: Sodium is 141, potassium is 4.1, chloride 107, bicarbonate 31, BUN is 29, creatinine 1.28 and glucose of 97. Last glucose level is 92. Arterial blood gas done yesterday at 9 p.m. shows a pH of 7.25, pCO2 of 80, bicarbonate of 34, saturation is 95%. This is currently on 35% FIO2 via Bi PAP. MRSA screening negative. Chest x-ray on 05/22/2018 shows mild interstitial edema, slightly imp roved deep basilar atelectasis, unchanged, small bilateral pleural effusion, unchanged. MEDICATIONS: Reviewed as well includin. Haldol p.r.n. 2. Aspirin 81 mg daily. 3. Aspart per sliding scale. 4. Albuterol as directed. 5. Synthroid 137 mcg daily. 6. Lipitor 10 mg at bedtime. 7. Allopurinol 200 mg daily. 8. Vitamin D 5000 daily. 9. Tobramycin ophthalmic b.i.d. 10. Hypoglycemia protocol as directed. 11. Tylenol. 12. Zofran. 13. Protonix 40 IV daily. ASSESSMENT AND PLAN: This is an unfortunate 83-year-old male with history of vascular kaylie ntia, debilitated, atrial fibrillation, CHF, hypertension, hypothyroidism, diabetes mellitus, valvula r heart disease who presents with acute hypoxemic hypercapnic respiratory failure, recently treated f or pseudomonas aeruginosa urinary tract infection and bacteremia and now with ongoing encephalopathy, hypercapnic respiratory failure. Briefly had an episode of marked bradycardia, now off digoxin and beta blockers status post dopamine. 1. Respiratory. Continues to have CO2 retention. Continue BiPAP. Pulmonary is following. This is ongoing and we are concerned that he may need to be intubated. Will ask social media campaign manager to convene an ethics committee as patient's friend Tessa voiced a statement that patient is in general do not w ant aggressive care and currently patient cannot provide much information due to his confusion. We w ill continue to monitor his respiratory status. 2. Cardiovascular remained stable. Cardiology is following vitals. The patient is with no signific ant bradycardia. 3. Infectious disease status post treatment for urinary tract infection bacteremia Pseudomonas aerug inosa, now off antibiotics. Again, monitor closely for any recurrent infection. 4. Generalized weakness with status post prolonged hospitalization. 5. Dysphagia. Continue current diet for now, able to eat intermittently. 6. Hypothyroidism. Continue Synthroid. 7. Diabetes mellitus. Continue Accu-Chek. 8. Left testicular mass. The patient was seen recently by Dr. Ellis at [facility] where opting for more conservative management regarding the testicular mass as he has other more co ncerning issues. 9. Continue Protonix for gastrointestinal prophylaxis. 10. Anemia. No need for transfusion. 11. Chronic kidney disease, stable. Overall, condition is guarded. We will ask social media campaign manager to assist with ongoing decisions as we are concerned about his respiratory status that he may need to be intubated in the near future if the pat yamilka's condition did not improve. We will follow. Dictated By: MAIN BARBOZA/MAMI Conf#: [id number] DID#: [id number] CC: MAIN LANG MD;*EndCC*
[2018-05-23] MEDS: ALBUTEROL 0.083% (NEB) 2.5 MG/3 ML AMP HHN PRN (08:34)
--- NOTE | 2018-05-23 08:39 | CONS ---
Date/Time of Note Date/Time of Note DATE: 05/23/18 TIME: 08:38 Consult Date/Type/Reason Admit Date/Time May 17, 2018 at 05:26 Initial Consult Date 05/17/18 Type of Consultation: cv Requesting Provider: MAIN LANG MD Subjective cardiology follow up progress note S: Discussed with the staff on telemetry was reviewed. Patient remains in atrial fibrillation mostly with slow ventricular response but no long pauses is seen overnight . Heart rate has been stable is in the 50s-70s mostly but intermittently down to 30s and 40s while sleeping he is off dopamine drip no chest pain or pressure or syncope reported but patient is more lethargic now and has been hypoxemic and is on BiPAP overnight Objective: General: Elderly looking gentleman. On BiPAP HEENT: NC/AT. Eyes are closed NECK:. no stridor. CV: Irregularly irregular systolic murmur; no gallop or rubs. PULM: no wheezing + rhonchi. GI: SOFT, NT, ND, no rebound or guarding Extremity: +B/L LE edema. no clubbing. neuro: Drowsy/lethargic Psych: calm rectal: deferred : normal Derm: Multiple diffuse ecchymosis Echocardiogram done 05/14/2018 which was personally reviewed shows: There is severe enlargement of left atrium. There is mild enlargement of right atrium. Lower limits of normal systolic function. Normal left ventricular cavity size. Mild concentric left ventricular hypertrophy. Ejection fraction is visually estimated at 50-55 %. Moderate mitral leaflet calcification. Severe mitral annular calcification. Trace mitral regurgitation. Mild to moderate mitral stenosis. Mitral valve Max Velocity 2.40 m/sec. MaxPG 22.00 mmHg. MeanPG 7.00 mmHg. Aortic valve not well visualized. Aortic Valve Bio Prosthesis. Aortic valve Max velocity 2.55 m/sec. Max PG 26.00 mmHg. Mean PG 13.00 mmHg. Mild aortic valve regurgitation. Normal appearance of the tricuspid valve. Estimated peak PA systolic pressure 78 mmHg. There is moderate tricuspid regurgitation. Inferior vena cava without respiratory collapse, however, patient on ventilator. Normal pericardium with no significant pericardial effusion. Chest x-ray shows: Cardiomegaly with calcified atherosclerosis in the aorta. Central pulmonary vascular congestion and interstitial prominence in both lungs. Stable bilateral perihilar and lower lung infiltrates with small pleural effusions. Elevated right hemidiaphragm. CXR 05/19/18: 1. Moderate cardiomegaly. 2. Small to moderate bilateral pleural effusions. 3. Mild pulmonary edema, similar from prior study. Bibasilar atelectasis. Objective Vital Signs Date Temp Pulse Resp B/P (MAP) Pulse Ox O2 O2 Flow FiO2 Time Delivery Rate 05/23/18 68 22 98 Nasal 3.0 08:34 Cannula 05/23/18 97.0 140/60 07:37 (86) 05/23/18 35 05:10 Intake and Output 05/22/18 05/22/18 05/23/18 1414:59 22:59 06:59 IntakeIntake Total 240 ml 0 ml OutputOutput Total 550 ml 0 ml BalanceBalance -310 ml 0 ml Results/Medications Result Diagram: 05/23/18 0455 05/23/18 0455 Results 24 hrs Laboratory Tests Test 05/22/18 10:05 05/22/18 12:11 05/22/18 17:25 05/22/18 21:00 Blood Gas Blood arterial Blood Specimen arterial Source Arterial Blood 05/22/2018 10:3 05/22/2018 9:4 Date Drawn 5:21 AM 0:35 PM Arterial Blood 7.219 *L 7.250 *L pH (Temp corrected ) Arterial Blood 85.8 *H 80.1 *H pCO2 (Temp correct) Arterial Blood 143.7 H 78.5 L pO2 (Temp corrected ) Arterial Blood 34.2 H 34.3 H HCO3 Arterial Blood 4.1 H 4.9 H Base Excess Arterial Blood 98.6 94.8 L Oxygen Saturati on Roby Test ACCEPTAB ACCEPTAB Arterial Blood Right Radial Right Radial Gas Puncture Site Arterial 1.0 1.0 Blood Carboxyhe moglobin Arterial Blood 0.3 0.3 Methemoglobin Oxyhemoglobin 97.3 93.6 Percent Blood Gas 37.0 37.0 Temperature Blood Gas NASAL CANNULA MASK - BIPAP Modality FiO2 33.0 35.0 Blood Gas Peter HENAO RN Critical Value Read Back Blood Gas TM PA Notified Whom Blood Gas 05/22/2018 10:4 05/22/2018 9:5 Notified Time 5:10 AM 0:37 PM Bedside Glucose 116 124 Blood Gas A-a 77.9 H O2 Differential Blood Gas 20.0 Respiration Rate Blood Gas 23 Actual Respiration Rat e Blood Gas 10 Pressure Support Blood Gas 15/5 IPAP/EPAP Ratio Test 05/22/18 22:05 05/23/18 04:55 05/23/18 07:38 Bedside Glucose 108 92 White Blood 6.7 Count Red Blood Count 2.95 L Hemoglobin 9.9 L Hematocrit 32.6 L Mean 110.5 H Corpuscular Volume Mean 33.6 H Corpuscular Hemoglobin Mean 30.4 L Corpuscular Hemoglobin Conc ent Red Cell 19.8 H Distribution Width Platelet Count 150 Mean Platelet 12.0 H Volume Immature 3.300 H Granulocytes % Neutrophils % 72.5 Lymphocytes % 9.6 L Monocytes % 10.0 Eosinophils % 3.6 Basophils % 1.0 Nucleated Red 0.0 Blood Cells % Immature 0.220 H Granulocytes # Neutrophils # 4.9 Lymphocytes # 0.6 L Monocytes # 0.7 Eosinophils # 0.2 Basophils # 0.1 Nucleated Red 0.0 Blood Cells # Sodium Level 141 Potassium Level 4.1 Chloride Level 107 Carbon Dioxide 31 Level Anion Gap 3 L Blood Urea 29 H Nitrogen Creatinine 1.28 H Est Glomerular Filtrat Rate mL/min Glucose Level 97 Calcium Level 9.4 Phosphorus 2.5 Level Magnesium Level 2.0 Medications Current Medications Acetaminophen (Tylenol Tab) 650 mg Q6H PRN PO MILD PAIN(1-3)OR ELEVATED TEMP; Start 05/17/18 at 06:30 Allopurinol (Zyloprim) 200 mg DAILY PO Last administered on 05/22/18at 08:37; Admin Dose 200 MG; Start 05/17/18 at 09:00 Atorvastatin Calcium (Lipitor) 10 mg HS PO Last administered on 05/21/18at 21:03; Admin Dose 10 MG; Start 05/17/18 at 21:00 Cholecalciferol (Vitamin D) 5,000 unit DAILY PO Last administered on 05/22/18at 08:37; Admin Dose 5,000 UNIT; Start 05/17/18 at 09:00 Levothyroxine Sodium (Synthroid) 137 mcg DAILY@06 PO Last administered on 05/23/18at 05:51; Admin Dose 137 MCG; Start 05/18/18 at 06:00 Ondansetron HCl (Zofran Inj) 4 mg Q4H PRN IV NAUSEA AND/OR VOMITING; Start 05/17/18 at 06:30 Pantoprazole (Protonix Iv) 40 mg DAILY@06 IV Last administered on 05/23/18at 05:51; Admin Dose 40 MG; Start 05/17/18 at 06:00 Tobramycin Sulfate (Tobrex 0.3% Oph Drop) 1 drop BID BOTH EYES Last administered on 05/22/18at 22:04; Admin Dose 1 DROP; Start 05/17/18 at 09:00 Miscellaneous Information 1 ea NOTE XX ; Start 05/17/18 at 07:00 Glucose (Glutose) 15 gm Q15M PRN PO DECREASED GLUCOSE; Start 05/17/18 at 07:00 Glucose (Glutose) 22.5 gm Q15M PRN PO DECREASED GLUCOSE; Start 05/17/18 at 07:00 Dextrose (D50w Syringe) 25 ml Q15M PRN IV DECREASED GLUCOSE; Start 05/17/18 at 07:00 Dextrose (D50w Syringe) 50 ml Q15M PRN IV DECREASED GLUCOSE; Start 05/17/18 at 07:00 Glucagon (Glucagen) 1 mg Q15M PRN IM DECREASED GLUCOSE; Start 05/17/18 at 07:00 Glucose (Glutose) 15 gm Q15M PRN BUCCAL DECREASED GLUCOSE; Start 05/17/18 at 07:00 Albuterol (Proventil 0.083% (Neb)) 2.5 mg Q6H RESP THERAPY PRN HHN WHEEZING Last administered on 05/23/18at 08:34; Admin Dose 2.5 MG; Start 05/19/18 at 09:00 Insulin Aspart (Novolog Insulin Pen) (Adult SC Insulin - Mild Algorithm)... AC MEALS AND BEDTIME SC ; Start 05/21/18 at 17:30 Aspirin (Aspirin) 81 mg DAILY PO Last administered on 05/22/18at 10:59; Admin Dose 81 MG; Start 05/22/18 at 10:30 Haloperidol (Haldol) 1 mg Q4H PRN IV Agitation; Start 05/23/18 at 00:30 Haloperidol (Haldol) 2 mg PRN PRN IV Agitation; Start 05/23/18 at 01:00 Assessment/Plan Chief Complaint/Hosp Course 1. Atrial fibrillation with slow ventricular response and multiple pauses and with 1 long pause of more than 20 seconds which happened during the NG tube placement improved HR now 2. Hypercapnic respiratory failure 3. Status post Pseudomonas pneumonia and bacteremia 4. Encephalopathy 5. History of hypertension 6. History of possible coronary bypass graft 7. 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 Anemia 9. CHF pulm HTN, 10. pleural effusion Recommendations: Antibiotic management as per ID recommendation Supportive care and respiratory care as per pulmonary. We will closely monitor on telemetry. Digoxin and Coreg has been discontinued. diuresis with diamox per pulm We will continue to monitor him closely. CODE STATUS is full code for now given his recent Pseudomonas bacteremia I am very concerned about placing pacemaker in him. Heart rate is currently responding off of AV gianluca blocking agents cont tele Thank you for his referral. We will continue to follow along with you SAMARIA AGUILAR MD [facility] SAMARIA AGUILAR MD May 23, 2018 08:39
[2018-05-23] MEDS: TOBRAMYCIN 0.3% 5 ML OPH BOTH EYES SCH ×2 (09:04→21:19)
[2018-05-23] MEDS: ALLOPURINOL 100 MG TAB PO SCH (09:04)
[2018-05-23] MEDS: ASPIRIN 81 MG TAB PO SCH (09:05)
[2018-05-23] MEDS: BALSAM PERU/CASTOR OIL 60 GM TUBE TOP SCH ×2 (09:05→21:19)
[2018-05-23] MEDS: CHOLECALCIFEROL 1,000 UNIT TAB PO SCH (09:05)
--- NOTE | 2018-05-23 10:36 | CONS ---
Date/Time of Note Date/Time of Note DATE: 05/23/18 TIME: 10:33 Consult Date/Type/Reason Admit Date/Time May 17, 2018 at 05:26 Initial Consult Date 05/17/18 Type of Consult Pulmonary Requesting Provider: MAIN LANG MD Subjective Patient's condition is tenuous at best. Still requiring BiPAP. But remains awake and responsive appropriately. General exam; elderly male, on BiPAP. Currently in no distress. Objective Vital Signs Date Temp Pulse Resp B/P (MAP) Pulse Ox O2 O2 Flow FiO2 Time Delivery Rate 05/23/18 62 96 35 09:30 05/23/18 22 Nasal 3.0 08:34 Cannula 05/23/18 97.0 140/60 07:37 (86) Intake and Output 05/22/18 05/22/18 05/23/18 1414:59 22:59 06:59 IntakeIntake Total 240 ml 0 ml OutputOutput Total 550 ml 0 ml BalanceBalance -310 ml 0 ml Exam H EENT exam; supple neck, no JVD. No lymphadenopathy. Midline trachea. No thyromegaly. Patient has a multiple carious teeth. Chest exam; diminished breath sounds bilaterally. S1-S2 audible, no murmurs. Irregular rhythm. There is a well-healed sternal scar. Abdomen exam; soft, no organomegaly. Bowel sounds audible. Nontender. Extremity exam; no peripheral edema. Patient does have patchy ecchymosis. CERAMIC PAINTER exam; no focal motor deficit. Results/Medications Result Diagram: 05/23/18 0455 05/23/18 0455 Results 24 hrs Laboratory Tests Test 05/22/18 12:11 05/22/18 17:25 05/22/18 21:00 05/22/18 22:05 Bedside Glucose 116 124 108 Blood Gas Blood arterial Specimen Source Arterial Blood 05/22/2018 9:40 Date Drawn :35 PM Arterial Blood 7.250 *L pH (Temp corrected ) Arterial Blood 80.1 *H pCO2 (Temp correct) Arterial Blood 78.5 L pO2 (Temp corrected ) Arterial Blood 34.3 H HCO3 Arterial Blood 4.9 H Base Excess Arterial Blood 94.8 L Oxygen Saturati on Roby Test ACCEPTAB Arterial Blood Right Radial Gas Puncture Site Arterial 1.0 Blood Carboxyhe moglobin Arterial Blood 0.3 Methemoglobin Blood Gas A-a 77.9 H O2 Differential Oxyhemoglobin 93.6 Percent Blood Gas 37.0 Temperature Blood Gas 20.0 Respiration Rate Blood Gas 23 Actual Respiration Rat e Blood Gas MASK - BIPAP Modality FiO2 35.0 Blood Gas 10 Pressure Support Blood Gas 15/5 IPAP/EPAP Ratio Blood Gas EARLENE BLACK Critical Value Read Back Blood Gas MA Notified Whom Blood Gas 05/22/2018 9:50 Notified Time :37 PM Test 05/23/18 04:55 05/23/18 07:38 05/23/18 09:00 White Blood 6.7 Count Red Blood Count 2.95 L Hemoglobin 9.9 L Hematocrit 32.6 L Mean 110.5 H Corpuscular Volume Mean 33.6 H Corpuscular Hemoglobin Mean 30.4 L Corpuscular Hemoglobin Conc ent Red Cell 19.8 H Distribution Width Platelet Count 150 Mean Platelet 12.0 H Volume Immature 3.300 H Granulocytes % Neutrophils % 72.5 Lymphocytes % 9.6 L Monocytes % 10.0 Eosinophils % 3.6 Basophils % 1.0 Nucleated Red 0.0 Blood Cells % Immature 0.220 H Granulocytes # Neutrophils # 4.9 Lymphocytes # 0.6 L Monocytes # 0.7 Eosinophils # 0.2 Basophils # 0.1 Nucleated Red 0.0 Blood Cells # Sodium Level 141 Potassium Level 4.1 Chloride Level 107 Carbon Dioxide 31 Level Anion Gap 3 L Blood Urea 29 H Nitrogen Creatinine 1.28 H Est Glomerular Filtrat Rate mL/min Glucose Level 97 Calcium Level 9.4 Phosphorus 2.5 Level Magnesium Level 2.0 Bedside Glucose 92 Blood Gas Blood arterial Specimen Source Arterial Blood 05/23/2018 9:13 Date Drawn :26 AM Arterial Blood 7.274 *L pH (Temp corrected ) Arterial Blood 73.9 H pCO2 (Temp correct) Arterial Blood 129.7 H pO2 (Temp corrected ) Arterial Blood 33.5 H HCO3 Arterial Blood 4.8 H Base Excess Arterial Blood 98.2 Oxygen Saturati on Roby Test ACCEPTAB Arterial Blood Right Radial Gas Puncture Site Arterial 1.0 Blood Carboxyhe moglobin Arterial Blood 0.2 Methemoglobin Blood Gas A-a 19.3 O2 Differential Oxyhemoglobin 97.0 Percent Blood Gas 37.0 Temperature Blood Gas NASAL CANNULA Modality FiO2 33.0 Blood Gas YONG BLACK Critical Value Read Back Blood Gas TM Notified Whom Blood Gas 05/23/2018 9:23 Notified Time :36 AM Medications Current Medications Acetaminophen (Tylenol Tab) 650 mg Q6H PRN PO MILD PAIN(1-3)OR ELEVATED TEMP; Start 05/17/18 at 06:30 Allopurinol (Zyloprim) 200 mg DAILY PO Last administered on 05/23/18at 09:04; Admin Dose 200 MG; Start 05/17/18 at 09:00 Atorvastatin Calcium (Lipitor) 10 mg HS PO Last administered on 05/21/18at 21:03; Admin Dose 10 MG; Start 05/17/18 at 21:00 Cholecalciferol (Vitamin D) 5,000 unit DAILY PO Last administered on 05/23/18at 09:05; Admin Dose 5,000 UNIT; Start 05/17/18 at 09:00 Levothyroxine Sodium (Synthroid) 137 mcg DAILY@06 PO Last administered on 05/23/18at 05:51; Admin Dose 137 MCG; Start 05/18/18 at 06:00 Ondansetron HCl (Zofran Inj) 4 mg Q4H PRN IV NAUSEA AND/OR VOMITING; Start 05/17/18 at 06:30 Pantoprazole (Protonix Iv) 40 mg DAILY@06 IV Last administered on 05/23/18at 05:51; Admin Dose 40 MG; Start 05/17/18 at 06:00 Tobramycin Sulfate (Tobrex 0.3% Oph Drop) 1 drop BID BOTH EYES Last administered on 05/23/18at 09:04; Admin Dose 1 DROP; Start 05/17/18 at 09:00 Miscellaneous Information 1 ea NOTE XX ; Start 05/17/18 at 07:00 Glucose (Glutose) 15 gm Q15M PRN PO DECREASED GLUCOSE; Start 05/17/18 at 07:00 Glucose (Glutose) 22.5 gm Q15M PRN PO DECREASED GLUCOSE; Start 05/17/18 at 07:00 Dextrose (D50w Syringe) 25 ml Q15M PRN IV DECREASED GLUCOSE; Start 05/17/18 at 07:00 Dextrose (D50w Syringe) 50 ml Q15M PRN IV DECREASED GLUCOSE; Start 05/17/18 at 07:00 Glucagon (Glucagen) 1 mg Q15M PRN IM DECREASED GLUCOSE; Start 05/17/18 at 07:00 Glucose (Glutose) 15 gm Q15M PRN BUCCAL DECREASED GLUCOSE; Start 05/17/18 at 07:00 Albuterol (Proventil 0.083% (Neb)) 2.5 mg Q6H RESP THERAPY PRN HHN WHEEZING Last administered on 05/23/18at 08:34; Admin Dose 2.5 MG; Start 05/19/18 at 09:00 Insulin Aspart (Novolog Insulin Pen) (Adult SC Insulin - Mild Algorithm)... AC MEALS AND BEDTIME SC ; Start 05/21/18 at 17:30 Aspirin (Aspirin) 81 mg DAILY PO Last administered on 05/23/18at 09:05; Admin Dose 81 MG; Start 05/22/18 at 10:30 Haloperidol (Haldol) 1 mg Q4H PRN IV Agitation; Start 05/23/18 at 00:30 Haloperidol (Haldol) 2 mg PRN PRN IV Agitation; Start 05/23/18 at 01:00 Assessment/Plan Additional Assessment/Plan ABG was reviewed. Assessment recommendations; 1. Patient admitted for bradycardia with history of atrial fibrillation with spontaneous recovery and heart rate. 2. 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 3. Status post treatment for pneumonia. 4. Prior sternotomy with CABG and valve replacement. 5. Hypothyroidism. 6. Gout. 7. Chronic renal insufficiency. Continue current supportive care. Prognosis is poor. DANA YODER May 23, 2018 10:36
--- NOTE | 2018-05-23 12:24 | NUR ---
Nutrition Consults Advanced dementia - % Oral intake has not been documented, please consider documenting that. Multiple wounds - Rec daily MVI and Vit C; rec zinc sulfate daily x 10 days. Will be sending Magic cup TID. Thank you!
--- NOTE | 2018-05-23 14:32 | CONS ---
Date/Time of Note Date/Time of Note DATE: 05/23/18 TIME: 14:30 Assessment/Plan Assessment/Plan Hospital Course Patient is back on BiPAP he is more lethargic today in no distress afebrile temperature 97.6 pulse 84 respirations 22 blood pressure 131/68 saturation 96% WBC 6.7 H&H 9.9 and 32.6 platelets 150 neutrophils 72.5 BUN 29 creatinine 1.28 Antimicrobials: none s/p Merrem Physical examination: This is a chronically ill-appearing well-developed fragile elderly man who is lethargic, comfortable on Bipap, in no distress. Head atraumatic normocephalic, sclera nonicteric. Neck is supple. Chest rise symme trical, breath sounds diminished bases, heart: S1-S2. Abdomen distended soft bowel sounds present extremities with trace edema Assessment: 1. S/p symptomatic bradycardia 2. Acute on chronic respiratory failure, status post pneumonia 3. Status post Pseudomonas bacteremia, blood cultures since May 08 negative 4. Encephalopathy 5. Coronary artery disease with a history of CABG and valve replacement Plan: Clinically deteriorated back to BiPAP, continue present care, follow pulmonary and cardiology recommendations, repeat chest x-ray tomorrow, repeat cultures prn Result Diagram: 05/23/18 0455 05/23/18 0455 Results 24hrs Laboratory Tests Test 05/22/18 17:25 05/22/18 21:00 05/22/18 22:05 05/23/18 04:55 Bedside Glucose 124 108 Blood Gas Blood arterial Specimen Source Arterial Blood 05/22/2018 9:40 Date Drawn :35 PM Arterial Blood 7.250 *L pH (Temp corrected ) Arterial Blood 80.1 *H pCO2 (Temp correct) Arterial Blood 78.5 L pO2 (Temp corrected ) Arterial Blood 34.3 H HCO3 Arterial Blood 4.9 H Base Excess Arterial Blood 94.8 L Oxygen Saturati on Roby Test ACCEPTAB Arterial Blood Right Radial Gas Puncture Site Arterial 1.0 Blood Carboxyhe moglobin Arterial Blood 0.3 Methemoglobin Blood Gas A-a 77.9 H O2 Differential Oxyhemoglobin 93.6 Percent Blood Gas 37.0 Temperature Blood Gas 20.0 Respiration Rate Blood Gas 23 Actual Respiration Rat e Blood Gas MASK - BIPAP Modality FiO2 35.0 Blood Gas 10 Pressure Support Blood Gas 15/5 IPAP/EPAP Ratio Blood Gas EARLENE BLACK Critical Value Read Back Blood Gas MA Notified Whom Blood Gas 05/22/2018 9:50 Notified Time :37 PM White Blood 6.7 Count Red Blood Count 2.95 L Hemoglobin 9.9 L Hematocrit 32.6 L Mean 110.5 H Corpuscular Volume Mean 33.6 H Corpuscular Hemoglobin Mean 30.4 L Corpuscular Hemoglobin Conc ent Red Cell 19.8 H Distribution Width Platelet Count 150 Mean Platelet 12.0 H Volume Immature 3.300 H Granulocytes % Neutrophils % 72.5 Lymphocytes % 9.6 L Monocytes % 10.0 Eosinophils % 3.6 Basophils % 1.0 Nucleated Red 0.0 Blood Cells % Immature 0.220 H Granulocytes # Neutrophils # 4.9 Lymphocytes # 0.6 L Monocytes # 0.7 Eosinophils # 0.2 Basophils # 0.1 Nucleated Red 0.0 Blood Cells # Sodium Level 141 Potassium Level 4.1 Chloride Level 107 Carbon Dioxide 31 Level Anion Gap 3 L Blood Urea 29 H Nitrogen Creatinine 1.28 H Est Glomerular Filtrat Rate mL/min Glucose Level 97 Calcium Level 9.4 Phosphorus 2.5 Level Magnesium Level 2.0 Test 05/23/18 07:38 05/23/18 09:00 05/23/18 11:44 Bedside Glucose 92 149 Blood Gas Blood arterial Specimen Source Arterial Blood 05/23/2018 9:13 Date Drawn :26 AM Arterial Blood 7.274 *L pH (Temp corrected ) Arterial Blood 73.9 H pCO2 (Temp correct) Arterial Blood 129.7 H pO2 (Temp corrected ) Arterial Blood 33.5 H HCO3 Arterial Blood 4.8 H Base Excess Arterial Blood 98.2 Oxygen Saturati on Roby Test ACCEPTAB Arterial Blood Right Radial Gas Puncture Site Arterial 1.0 Blood Carboxyhe moglobin Arterial Blood 0.2 Methemoglobin Blood Gas A-a 19.3 O2 Differential Oxyhemoglobin 97.0 Percent Blood Gas 37.0 Temperature Blood Gas NASAL CANNULA Modality FiO2 33.0 Blood Gas YONG BLACK Critical Value Read Back Blood Gas TM Notified Whom Blood Gas 05/23/2018 9:23 Notified Time :36 AM Consultation Date/Type/Reason Admit Date/Time May 17, 2018 at 05:26 Initial Consult Date 05/17/18 Type of Consult id Requesting Provider: MAIN LANG MD Exam/Review of Systems Vital Signs Vitals Vital Signs Date Temp Pulse Resp B/P (MAP) Pulse Ox O2 O2 Flow FiO2 Time Delivery Rate 05/23/18 78 12:35 05/23/18 97.6 131/68 96 BIPAP 12:01 (89) 05/23/18 35 11:04 05/23/18 22 3.0 08:34 Intake and Output 05/22/18 05/22/18 05/23/18 1515:00 23:00 07:00 IntakeIntake Total 240 ml 0 ml OutputOutput Total 550 ml 0 ml BalanceBalance -310 ml 0 ml Medications Medications Current Medications Acetaminophen (Tylenol Tab) 650 mg Q6H PRN PO MILD PAIN(1-3)OR ELEVATED TEMP; Start 05/17/18 at 06:30 Allopurinol (Zyloprim) 200 mg DAILY PO Last administered on 05/23/18at 09:04; Admin Dose 200 MG; Start 05/17/18 at 09:00 Atorvastatin Calcium (Lipitor) 10 mg HS PO Last administered on 05/21/18at 21:03; Admin Dose 10 MG; Start 05/17/18 at 21:00 Cholecalciferol (Vitamin D) 5,000 unit DAILY PO Last administered on 05/23/18at 09:05; Admin Dose 5,000 UNIT; Start 05/17/18 at 09:00 Levothyroxine Sodium (Synthroid) 137 mcg DAILY@06 PO Last administered on 05/23/18at 05:51; Admin Dose 137 MCG; Start 05/18/18 at 06:00 Ondansetron HCl (Zofran Inj) 4 mg Q4H PRN IV NAUSEA AND/OR VOMITING; Start 05/17/18 at 06:30 Pantoprazole (Protonix Iv) 40 mg DAILY@06 IV Last administered on 05/23/18at 05:51; Admin Dose 40 MG; Start 05/17/18 at 06:00 Tobramycin Sulfate (Tobrex 0.3% Oph Drop) 1 drop BID BOTH EYES Last administered on 05/23/18at 09:04; Admin Dose 1 DROP; Start 05/17/18 at 09:00 Miscellaneous Information 1 ea NOTE XX ; Start 05/17/18 at 07:00 Glucose (Glutose) 15 gm Q15M PRN PO DECREASED GLUCOSE; Start 05/17/18 at 07:00 Glucose (Glutose) 22.5 gm Q15M PRN PO DECREASED GLUCOSE; Start 05/17/18 at 07:00 Dextrose (D50w Syringe) 25 ml Q15M PRN IV DECREASED GLUCOSE; Start 05/17/18 at 07:00 Dextrose (D50w Syringe) 50 ml Q15M PRN IV DECREASED GLUCOSE; Start 05/17/18 at 07:00 Glucagon (Glucagen) 1 mg Q15M PRN IM DECREASED GLUCOSE; Start 05/17/18 at 07:00 Glucose (Glutose) 15 gm Q15M PRN BUCCAL DECREASED GLUCOSE; Start 05/17/18 at 07:00 Albuterol (Proventil 0.083% (Neb)) 2.5 mg Q6H RESP THERAPY PRN HHN WHEEZING Last administered on 05/23/18at 08:34; Admin Dose 2.5 MG; Start 05/19/18 at 09:00 Insulin Aspart (Novolog Insulin Pen) (Adult SC Insulin - Mild Algorithm)... AC MEALS AND BEDTIME SC Last administered on 05/23/18at 11:48; Admin Dose 1 UNIT; Start 05/21/18 at 17:30 Aspirin (Aspirin) 81 mg DAILY PO Last administered on 05/23/18at 09:05; Admin Dose 81 MG; Start 05/22/18 at 10:30 Haloperidol (Haldol) 1 mg Q4H PRN IV Agitation; Start 05/23/18 at 00:30 Haloperidol (Haldol) 2 mg PRN PRN IV Agitation; Start 05/23/18 at 01:00 KARINA LUNA NP May 23, 2018 14:32
--- NOTE | 2018-05-23 15:26 | NUR ---
KARLY: BIOETHICS REFERRAL Dr. Matos requested bioethics meeting be arranged. Dr. Matos states he is available on Sunday for the bioethics meeting. KARLY also met with patient's friend Tessa Fernando ([phone]), who states that she would also like to be present during this conference, stating that she knows what patient's wishes are. She requested that the meeting be arranged for freelance data entry if possible due to a doctors appointment she has later in the day. States that she can try to make changes and attend the bioethics if there is no way to arrange it freelance data entry. KARLY made a bioethics referral to Munira Weeks from medical staff, requesting that the conference be arranged for Sunday. She will speak with the staff and will notify this process description writer if they are able to arrange a conference at that time/ date. KARLY remains available as needed throughout patient's treatment process.
--- NOTE | 2018-05-23 19:15 | NUR ---
EOSS: Patient stable on bed, with Bipap on, no sob/distress noted. V/S stable, no s/s of pain/discomfort noted. All needs attended well. Continued monitoring per plan of care.
[2018-05-23] MEDS: ATORVASTATIN 10 MG TAB PO SCH (21:19)
[2018-05-24] VITALS (17 sets, daily range): BP systolic 119–141; BP diastolic 62–81; PULSE 54–82; RESP 18–23
[2018-05-24] MEDS: PANTOPRAZOLE 40 MG INJ IV SCH (06:10)
[2018-05-24] MEDS: LEVOTHYROXINE 137 MCG TAB PO SCH (06:10)
[2018-05-24] MEDS: Insulin NOVOLOG SS MILD Algorithm (SS with meals and bedtime) SC SCH ×4 (07:00→21:00)
[2018-05-24] MEDS: ALLOPURINOL 100 MG TAB PO SCH (08:44)
[2018-05-24] MEDS: TOBRAMYCIN 0.3% 5 ML OPH BOTH EYES SCH ×2 (08:44→22:34)
[2018-05-24] MEDS: CHOLECALCIFEROL 1,000 UNIT TAB PO SCH (08:44)
[2018-05-24] MEDS: ASPIRIN 81 MG TAB PO SCH (08:44)
[2018-05-24] MEDS: BALSAM PERU/CASTOR OIL 60 GM TUBE TOP SCH ×2 (08:45→22:35)
--- NOTE | 2018-05-24 11:02 | NUR ---
EOSS: PATIENT A/O X1 AND VERY FORGETFUL, A FIB ON MONITOR, VSS, BIPAP ALL NIGHT AND 4L NC DURING DAY, NO C/O CP OR SOB, NO ACUTE EVENTS OVER NIGHT. PATIENT IS CLEAN AND DRY, HAS CALL LIGHT IN REACH, BED IN LOWEST POSITION, BED ALARM ON, ROOM IS CLUTTER FREE. CONTINUE POC; WILL ENDORSE TO RN.
--- NOTE | 2018-05-24 11:56 | NUR ---
SW: FOLLOW UP KARLY followed up with patient's friend Tessa Fernando ([phone]) and informed her that the Bioethics meeting has been changed to 05/27/18 at 9:00am. She stated that she will be present. KARLY provided her with EZIO Reyes's contact information, as she will be covering that day for the bioethics meeting. Tessa requested to know if patient can complete the AHCD form today. However, KARLY informed her that per chart review at 11:00am today, RN documented that patient is Aox1 and forgetful. Patient unable to compete the AHCD form at this time. KARLY called and spoke with patient's primary RN, who confirmed that patient is AOx1 only. SW continues to remain available as needed throughout patient's treatment process. Tessa denies any other questions/ concerns at this time.
--- NOTE | 2018-05-24 12:08 | PN ---
DATE: 05/24/2018 SUBJECTIVE: The patient overnight was stable on BiPAP. No acute events noted. No hemoptysis, hemat emesis or hematochezia. OBJECTIVE: VITAL SIGNS: Blood pressure is 136/81, respiration 23, pulse 69, temperature 98.0. HEENT: Head is normocephalic. NECK: Supple. HEART: Regular rate. LUNGS: Show diminished breath sounds at the base. ABDOMEN: Soft, nontender to palpation. No rebound or guarding. EXTREMITIES: Negative for clubbing, cyanosis, no edema. DERMATOLOGIC: No rashes. MUSCULOSKELETAL: No joint effusions. NEUROLOGIC: No focal deficits. MEDICATIONS: Reviewed. LABORATORY DATA: Shows a sodium 144, potassium 3.6, BUN 27, creatinine 1.17, phosphorus 2.1. White count 6.4, hemoglobin 10.0, platelet count is 151. ASSESSMENT AND PLAN: 1. Acute hypoxic respiratory failure. Etiology is secondary to congestive heart failure, pneumonia. The patient remains on BiPAP at night. Would continue current treatment plan. Follow up with pulm onary. Continue nebulizers. Will give intermittent diuretic therapy as needed and monitor closely. 2. Sepsis secondary to urinary tract infection, bacteremia. The patient is completing antibiotic co urse. Monitor closely. 3. Dysphagia. The patient is pending a swallow evaluation. 4. Diabetes. Continue current insulin regimen. 5. Hypothyroidism. Continue Synthroid. 6. Left testicular mass. The patient has been evaluated by Dr. Ellis. We will continue to monito r. 7. Anemia. Monitor hemoglobin and hematocrit levels. 8. Atrial fibrillation. Continue current medical management. Follow up with cardiology. 9. History of coronary artery disease, status post coronary artery bypass graft. Continue medical m anagement. 10. History of chronic kidney disease. Continue medical management. 11. Alkalosis. Continue to monitor closely. We will give Diamox as needed. Dictated By: LUIS DONNELLY DO NR/NTS Conf#: [id number] DID#: [id number] CC: MAIN LANG MD;*EndCC*
--- NOTE | 2018-05-24 13:09 | CONS ---
Date/Time of Note Date/Time of Note DATE: 05/24/18 TIME: 13:07 Consult Date/Type/Reason Admit Date/Time May 17, 2018 at 05:26 Initial Consult Date 05/17/18 Type of Consultation: Pulmonary ICU Requesting Provider: MAIN LANG MD Subjective Patient stable this morning off bilevel ventilation on supplemental O2 awake alert. No respiratory distress. Objective Vital Signs Date Temp Pulse Resp B/P (MAP) Pulse Ox O2 O2 Flow FiO2 Time Delivery Rate 05/24/18 81 12:00 05/24/18 20 96 Nasal 4.0 11:48 Cannula 05/24/18 98.0 129/62 11:18 (84) 05/24/18 30 05:36 Intake and Output 05/23/18 05/23/18 05/24/18 1515:00 23:00 07:00 IntakeIntake Total 440 ml 50 ml OutputOutput Total 100 ml 950 ml 450 ml BalanceBalance -100 ml -510 ml -400 ml Exam GENERAL: Frail elderly gentleman comfortable at rest on nasal cannula O2 VITAL SIGNS: per chart NECK: Supple. No JVD or lymphadenopathy. CARDIAC EXAM: S1, S2. No added sounds or murmurs. CHEST: clear bilaterally, No added sounds, rales or wheezes ABDOMEN: Soft, nontender. No guarding or rebound. EXTREMITIES: No cyanosis, clubbing or edema. NEUROLOGIC: Generalized weakness. Results/Medications Result Diagram: 05/24/18 0511 05/24/18 0511 Results 24 hrs Laboratory Tests Test 05/23/18 17:12 05/23/18 21:21 05/24/18 05:10 05/24/18 05:11 Bedside Glucose 147 127 Digoxin Level < 0.4 L White Blood 6.4 Count Red Blood Count 3.01 L Hemoglobin 10.0 L Hematocrit 32.5 L Mean Corpuscular 108.0 H Volume Mean Corpuscular 33.2 H Hemoglobin Mean Corpuscular 30.8 L Hemoglobin Sharita nt Red Cell 20.0 H Distribution Width Platelet Count 151 Mean Platelet 12.2 H Volume Immature 2.800 H Granulocytes % Neutrophils % 68.1 Lymphocytes % 13.1 L Monocytes % 10.3 Eosinophils % 5.1 Basophils % 0.6 Nucleated Red 0.0 Blood Cells % Immature 0.180 H Granulocytes # Neutrophils # 4.4 Lymphocytes # 0.8 Monocytes # 0.7 Eosinophils # 0.3 Basophils # 0.0 Nucleated Red 0.0 Blood Cells # Sodium Level 144 Potassium Level 3.6 Chloride Level 106 Carbon Dioxide 35 H Level Anion Gap 3 L Blood Urea 27 H Nitrogen Creatinine 1.17 Est Glomerular Filtrat Rate mL/min Glucose Level 101 Calcium Level 9.8 Phosphorus Level 2.1 L Magnesium Level 2.0 Total Bilirubin 0.9 Direct Bilirubin 0.00 Indirect 0.9 Bilirubin Aspartate Amino 36 Transf (AST/SGOT ) Alanine 16 Aminotransferase (ALT/SGPT) Alkaline 120 Phosphatase Total Protein 5.8 L Albumin 2.8 L Globulin 3.00 Albumin/Globulin 0.93 Ratio Test 05/24/18 07:51 05/24/18 12:01 Bedside Glucose 94 181 Medications Current Medications Acetaminophen (Tylenol Tab) 650 mg Q6H PRN PO MILD PAIN(1-3)OR ELEVATED TEMP; Start 05/17/18 at 06:30 Allopurinol (Zyloprim) 200 mg DAILY PO Last administered on 05/24/18at 08:44; Admin Dose 200 MG; Start 05/17/18 at 09:00 Atorvastatin Calcium (Lipitor) 10 mg HS PO Last administered on 05/23/18at 21:19; Admin Dose 10 MG; Start 05/17/18 at 21:00 Cholecalciferol (Vitamin D) 5,000 unit DAILY PO Last administered on 05/24/18at 08:44; Admin Dose 5,000 UNIT; Start 05/17/18 at 09:00 Levothyroxine Sodium (Synthroid) 137 mcg DAILY@06 PO Last administered on at 06:10; Admin Dose 137 MCG; Start 05/18/18 at 06:00 Ondansetron HCl (Zofran Inj) 4 mg Q4H PRN IV NAUSEA AND/OR VOMITING; Start 05/17/18 at 06:30 Pantoprazole (Protonix Iv) 40 mg DAILY@06 IV Last administered on 05/24/18at 06:10; Admin Dose 40 MG; Start 05/17/18 at 06:00 Tobramycin Sulfate (Tobrex 0.3% Oph Drop) 1 drop BID BOTH EYES Last administered on 05/24/18at 08:44; Admin Dose 1 DROP; Start 05/17/18 at 09:00 Miscellaneous Information 1 ea NOTE XX ; Start 05/17/18 at 07:00 Glucose (Glutose) 15 gm Q15M PRN PO DECREASED GLUCOSE; Start 05/17/18 at 07:00 Glucose (Glutose) 22.5 gm Q15M PRN PO DECREASED GLUCOSE; Start 05/17/18 at 07:00 Dextrose (D50w Syringe) 25 ml Q15M PRN IV DECREASED GLUCOSE; Start 05/17/18 at 07:00 Dextrose (D50w Syringe) 50 ml Q15M PRN IV DECREASED GLUCOSE; Start 05/17/18 at 07:00 Glucagon (Glucagen) 1 mg Q15M PRN IM DECREASED GLUCOSE; Start 05/17/18 at 07:00 Glucose (Glutose) 15 gm Q15M PRN BUCCAL DECREASED GLUCOSE; Start 05/17/18 at 07:00 Albuterol (Proventil 0.083% (Neb)) 2.5 mg Q6H RESP THERAPY PRN HHN WHEEZING Last administered on 05/23/18at 08:34; Admin Dose 2.5 MG; Start 05/19/18 at 09:00 Insulin Aspart (Novolog Insulin Pen) (Adult SC Insulin - Mild Algorithm)... AC MEALS AND BEDTIME SC Last administered on 05/24/18at 12:04; Admin Dose 2 UNIT; Start 05/21/18 at 17:30 Aspirin (Aspirin) 81 mg DAILY PO Last administered on 05/24/18at 08:44; Admin Dose 81 MG; Start 05/22/18 at 10:30 Haloperidol (Haldol) 1 mg Q4H PRN IV Agitation; Start 05/23/18 at 00:30 Haloperidol (Haldol) 2 mg PRN PRN IV Agitation; Start 05/23/18 at 01:00 Assessment/Plan Chief Complaint/Hosp Course Assessment 1. Acute hypoxemic respiratory failure 2. History of underlying interstitial lung disease with chronic hypercapnia 3. History of coronary artery disease with coronary artery bypass graft surgery 4. Status post atrial fibrillation rapid ventricular rate 5. Resolving encephalopathy toxic metabolic Plan 1. Decrease O2 as tolerated 2. PRN bilevel ventilation 3. Continue to continue cardiac recommendations 4. DVT GI prophylaxis Consider [facility] vs SNF. CHUCHO MALONEY MD, [facility] May 24, 2018 13:09
--- NOTE | 2018-05-24 13:35 | CONS ---
Date/Time of Note Date/Time of Note DATE: 05/24/18 TIME: 13:35 Assessment/Plan Assessment/Plan Hospital Course Awake, comfortable on nasal cannula, no fevers overnight WBC 6.4 platelets 151 neutrophils 68.1 BUN 27 creatinine 1.17 Antimicrobials: none s/p Merrem Physical examination: This is a chronically ill-appearing well-developed fragile elderly man who is lethargic, comfortable on Bipap, in no distress. Head atraumatic normocephalic, sclera nonicteric. Neck is supple. Chest rise symmetrical, breath sounds diminished bases, heart: S1-S2. Abdomen distended soft bowel sounds present extremities with trace edema Assessment: 1. S/p symptomatic bradycardia 2. Acute on chronic respiratory failure, status post pneumonia 3. Status post Pseudomonas bacteremia, blood cultures since May 08 negati ve 4. Encephalopathy 5. Coronary artery disease with a history of CABG and valve replacement Plan: Remains stable, continue present care, follow pulmonary and cardiology recommendations, repeat cultures prn Result Diagram: 05/24/18 0511 05/24/18 0511 Results 24hrs Laboratory Tests Test 05/23/18 17:12 05/23/18 21:21 05/24/18 05:10 05/24/18 05:11 Bedside Glucose 147 127 Digoxin Level < 0.4 L White Blood 6.4 Count Red Blood Count 3.01 L Hemoglobin 10.0 L Hematocrit 32.5 L Mean Corpuscular 108.0 H Volume Mean Corpuscular 33.2 H Hemoglobin Mean Corpuscular 30.8 L Hemoglobin Sharita nt Red Cell 20.0 H Distribution Width Platelet Count 151 Mean Platelet 12.2 H Volume Immature 2.800 H Granulocytes % Neutrophils % 68.1 Lymphocytes % 13.1 L Monocytes % 10.3 Eosinophils % 5.1 Basophils % 0.6 Nucleated Red 0.0 Blood Cells % Immature 0.180 H Granulocytes # Neutrophils # 4.4 Lymphocytes # 0.8 Monocytes # 0.7 Eosinophils # 0.3 Basophils # 0.0 Nucleated Red 0.0 Blood Cells # Sodium Level 144 Potassium Level 3.6 Chloride Level 106 Carbon Dioxide 35 H Level Anion Gap 3 L Blood Urea 27 H Nitrogen Creatinine 1.17 Est Glomerular Filtrat Rate mL/min Glucose Level 101 Calcium Level 9.8 Phosphorus Level 2.1 L Magnesium Level 2.0 Total Bilirubin 0.9 Direct Bilirubin 0.00 Indirect 0.9 Bilirubin Aspartate Amino 36 Transf (AST/SGOT ) Alanine 16 Aminotransferase (ALT/SGPT) Alkaline 120 Phosphatase Total Protein 5.8 L Albumin 2.8 L Globulin 3.00 Albumin/Globulin 0.93 Ratio Test 05/24/18 07:51 05/24/18 12:01 Bedside Glucose 94 181 Consultation Date/Type/Reason Admit Date/Time May 17, 2018 at 05:26 Initial Consult Date 05/17/18 Type of Consult id Requesting Provider: MAIN LANG MD Exam/Review of Systems Vital Signs Vitals Vital Signs Date Temp Pulse Resp B/P (MAP) Pulse Ox O2 O2 Flow FiO2 Time Delivery Rate 05/24/18 79 22 99 Nasal 4.0 13:18 Cannula 05/24/18 98.0 129/62 11:18 (84) 05/24/18 30 05:36 Intake and Output 05/23/18 05/23/18 05/24/18 1515:00 23:00 07:00 IntakeIntake Total 440 ml 50 ml OutputOutput Total 100 ml 950 ml 450 ml BalanceBalance -100 ml -510 ml -400 ml Medications Medications Current Medications Acetaminophen (Tylenol Tab) 650 mg Q6H PRN PO MILD PAIN(1-3)OR ELEVATED TEMP; Start 05/17/18 at 06:30 Allopurinol (Zyloprim) 200 mg DAILY PO Last administered on 05/24/18at 08:44; Admin Dose 200 MG; Start 05/17/18 at 09:00 Atorvastatin Calcium (Lipitor) 10 mg HS PO Last administered on 05/23/18at 2 1:19; Admin Dose 10 MG; Start 05/17/18 at 21:00 Cholecalciferol (Vitamin D) 5,000 unit DAILY PO Last administered on 05/24/18at 08:44; Admin Dose 5,000 UNIT; Start 05/17/18 at 09:00 Levothyroxine Sodium (Synthroid) 137 mcg DAILY@06 PO Last administered on 05/24/18at 06:10; Admin Dose 137 MCG; Start 05/18/18 at 06:00 Ondansetron HCl (Zofran Inj) 4 mg Q4H PRN IV NAUSEA AND/OR VOMITING; Start 05/17/18 at 06:30 Pantoprazole (Protonix Iv) 40 mg DAILY@06 IV Last administered on 05/24/18at 06:10; Admin Dose 40 MG; Start 05/17/18 at 06:00 Tobramycin Sulfate (Tobrex 0.3% Oph Drop) 1 drop BID BOTH EYES Last administered on 05/24/18at 08:44; Admin Dose 1 DROP; Start 05/17/18 at 09:00 Miscellaneous Information 1 ea NOTE XX ; Start 05/17/18 at 07:00 Glucose (Glutose) 15 gm Q15M PRN PO DECREASED GLUCOSE; Start 05/17/18 at 07:00 Glucose (Glutose) 22.5 gm Q15M PRN PO DECREASED GLUCOSE; Start 05/17/18 at 07:00 Dextrose (D50w Syringe) 25 ml Q15M PRN IV DECREASED GLUCOSE; Start 05/17/18 at 07:00 Dextrose (D50w Syringe) 50 ml Q15M PRN IV DECREASED GLUCOSE; Start 05/17/18 at 07:00 Glucagon (Glucagen) 1 mg Q15M PRN IM DECREASED GLUCOSE; Start 05/17/18 at 07:00 Glucose (Glutose) 15 gm Q15M PRN BUCCAL DECREASED GLUCOSE; Start 05/17/18 at 07:00 Albuterol (Proventil 0.083% (Neb)) 2.5 mg Q6H RESP THERAPY PRN HHN WHEEZING Last administered on 05/23/18at 08:34; Admin Dose 2.5 MG; Start 05/19/18 at 09:00 Insulin Aspart (Novolog Insulin Pen) (Adult SC Insulin - Mild Algorithm)... AC MEALS AND BEDTIME SC Last administered on 05/24/18at 12:04; Admin Dose 2 UNIT; Start 05/21/18 at 17:30 Aspirin (Aspirin) 81 mg DAILY PO Last administered on 05/24/18at 08:44; Admin Dose 81 MG; Start 05/22/18 at 10:30 Haloperidol (Haldol) 1 mg Q4H PRN IV Agitation; Start 05/23/18 at 00:30 Haloperidol (Haldol) 2 mg PRN PRN IV Agitation; Start 05/23/18 at 01:00 Furosemide (Lasix) 20 mg BID DIURETICS IV ; Start 05/24/18 at 18:00 KARINA LUNA NP May 24, 2018 13:35
[2018-05-24] MEDS: FUROSEMIDE 20 MG INJ IV SCH (17:15)
[2018-05-24] MEDS: ALBUTEROL 0.083% (NEB) 2.5 MG/3 ML AMP HHN PRN (17:22)
--- NOTE | 2018-05-24 18:32 | NUR ---
EOSS Patient is alert, oriented x1. On oxygen via nasal cannula at 3lit/min. No SOB or desaturation noted. Denies pain. Repositioned Q2H. All needs attended.
--- NOTE | 2018-05-24 19:40 | CONS ---
Date/Time of Note Date/Time of Note DATE: 05/24/18 TIME: 19:38 Consult Date/Type/Reason Admit Date/Time May 17, 2018 at 05:26 Initial Consult Date 05/17/18 Type of Consultation: CV Requesting Provider: MAIN LANG MD Subjective cardiology follow up progress note S: Discussed with the staff on telemetry was reviewed. Patient remains in atrial fibrillation mostly with controlled HR. no long pauses is seen overnight . Heart rate has been stable is in the 50s-80s mostly he is off dopamine drip no chest pain or pressure or syncope reported b PT IS off BIPAP NOW Objective: General: Elderly looking gentleman. On O2 HEENT: NC/AT. Eyes are closed NECK:. no stridor. CV: Irregularly irregular systolic murmur; no gallop or rubs. PULM: no wheezing + rhonchi. GI: SOFT, NT, ND, no rebound or guarding Extremity: +B/L LE edema. no clubbing. neuro: Drowsy/lethargic Psych: calm rectal: deferred : normal Derm: Multiple diffuse ecchymosis Echocardiogram done 05/14/2018 which was personally reviewed shows: There is severe enlargement of left atrium. There is mild enlargement of right atrium. Lower limits of normal systolic function. Normal left ventricular cavity size. Mild concentric left ventricular hypertrophy. Ejection fraction is visually estimated at 50-55 %. Moderate mitral leaflet calcification. Severe mitral annular calcification. Trace mitral regurgitation. Mild to moderate mitral stenosis. Mitral valve Max Velocity 2.40 m/sec. MaxPG 22.00 mmHg. MeanPG 7.00 mmHg. Aortic valve not well visualized. Aortic Valve Bio Prosthesis. Aortic valve Max velocity 2.55 m/sec. Max PG 26.00 mmHg. Mean PG 13.00 mmHg. Mild aortic valve regurgitation. Normal appearance of the tricuspid valve. Estimated peak PA systolic pressure 78 mmHg. There is moderate tricuspid regurgitation. Inferior vena cava without respiratory collapse, however, patient on ventilator. Normal pericardium with no significant pericardial effusion. Chest x-ray shows: Cardiomegaly with calcified atherosclerosis in the aorta. Central pulmonary vascular congestion and interstitial prominence in both lungs. Stable bilateral perihilar and lower lung infiltrates with small pleural effusions. Elevated right hemidiaphragm. CXR 05/19/18: 1. Moderate cardiomegaly. 2. Small to moderate bilateral pleural effusions. 3. Mild pulmonary edema, similar from prior study. Bibasilar atelectasis. Objective Vital Signs Date Temp Pulse Resp B/P (MAP) Pulse Ox O2 O2 Flow FiO2 Time Delivery Rate 05/24/18 98.3 82 18 127/67 99 19:33 (87) 05/24/18 Nasal 3.0 17:22 Cannula 05/24/18 30 05:36 Intake and Output 05/23/18 05/23/18 05/24/18 1515:00 23:00 07:00 IntakeIntake Total 440 ml 50 ml OutputOutput Total 100 ml 950 ml 450 ml BalanceBalance -100 ml -510 ml -400 ml Results/Medications Result Diagram: 05/24/18 0511 05/24/18 0511 Results 24 hrs Laboratory Tests Test 05/23/18 21:21 05/24/18 05:10 05/24/18 05:11 05/24/18 07:51 Bedside Glucose 127 94 Digoxin Level < 0.4 L White Blood 6.4 Count Red Blood Count 3.01 L Hemoglobin 10.0 L Hematocrit 32.5 L Mean Corpuscular 108.0 H Volume Mean Corpuscular 33.2 H Hemoglobin Mean Corpuscular 30.8 L Hemoglobin Sharita nt Red Cell 20.0 H Distribution Width Platelet Count 151 Mean Platelet 12.2 H Volume Immature 2.800 H Granulocytes % Neutrophils % 68.1 Lymphocytes % 13.1 L Monocytes % 10.3 Eosinophils % 5.1 Basophils % 0.6 Nucleated Red 0.0 Blood Cells % Immature 0.180 H Granulocytes # Neutrophils # 4.4 Lymphocytes # 0.8 Monocytes # 0.7 Eosinophils # 0.3 Basophils # 0.0 Nucleated Red 0.0 Blood Cells # Sodium Level 144 Potassium Level 3.6 Chloride Level 106 Carbon Dioxide 35 H Level Anion Gap 3 L Blood Urea 27 H Nitrogen Creatinine 1.17 Est Glomerular Filtrat Rate mL/min Glucose Level 101 Calcium Level 9.8 Phosphorus Level 2.1 L Magnesium Level 2.0 Total Bilirubin 0.9 Direct Bilirubin 0.00 Indirect 0.9 Bilirubin Aspartate Amino 36 Transf (AST/SGOT ) Alanine 16 Aminotransferase (ALT/SGPT) Alkaline 120 Phosphatase Total Protein 5.8 L Albumin 2.8 L Globulin 3.00 Albumin/Globulin 0.93 Ratio Test 05/24/18 12:05/24/18 17:11 Bedside Glucose 181 101 Medications Current Medications Acetaminophen (Tylenol Tab) 650 mg Q6H PRN PO MILD PAIN(1-3)OR ELEVATED TEMP; Start 05/17/18 at 06:30 Allopurinol (Zyloprim) 200 mg DAILY PO Last administered on 05/24/18at 08:44; Admin Dose 200 MG; Start 05/17/18 at 09:00 Atorvastatin Calcium (Lipitor) 10 mg HS PO Last administered on 05/23/18at 21:19; Admin Dose 10 MG; Start 05/17/18 at 21:00 Cholecalciferol (Vitamin D) 5,000 unit DAILY PO Last administered on 05/24/18at 08:44; Admin Dose 5,000 UNIT; Start 05/17/18 at 09:00 Levothyroxine Sodium (Synthroid) 137 mcg DAILY@06 PO Last administered on 05/24/18at 06:10; Admin Dose 137 MCG; Start 05/18/18 at 06:00 Ondansetron HCl (Zofran Inj) 4 mg Q4H PRN IV NAUSEA AND/OR VOMITING; Start 05/17/18 at 06:30 Pantoprazole (Protonix Iv) 40 mg DAILY@06 IV Last administered on 05/24/18at 06:10; Admin Dose 40 MG; Start 05/17/18 at 06:00 Tobramycin Sulfate (Tobrex 0.3% Oph Drop) 1 drop BID BOTH EYES Last administered on 05/24/18at 08:44; Admin Dose 1 DROP; Start 05/17/18 at 09:00 Miscellaneous Information 1 ea NOTE XX ; Start 05/17/18 at 07:00 Glucose (Glutose) 15 gm Q15M PRN PO DECREASED GLUCOSE; Start 05/17/18 at 07:00 Glucose (Glutose) 22.5 gm Q15M PRN PO DECREASED GLUCOSE; Start 05/17/18 at 07:00 Dextrose (D50w Syringe) 25 ml Q15M PRN IV DECREASED GLUCOSE; Start 05/17/18 at 07:00 Dextrose (D50w Syringe) 50 ml Q15M PRN IV DECREASED GLUCOSE; Start 05/17/18 at 07:00 Glucagon (Glucagen) 1 mg Q15M PRN IM DECREASED GLUCOSE; Start 05/17/18 at 07:00 Glucose (Glutose) 15 gm Q15M PRN BUCCAL DECREASED GLUCOSE; Start 05/17/18 at 07:00 Albuterol (Proventil 0.083% (Neb)) 2.5 mg Q6H RESP THERAPY PRN HHN WHEEZING Last administered on 05/24/18at 17:22; Admin Dose 2.5 MG; Start 05/19/18 at 09:00 Insulin Aspart (Novolog Insulin Pen) (Adult SC Insulin - Mild Algorithm)... AC MEALS AND BEDTIME SC Last administered on 05/24/18at 12:04; Admin Dose 2 UNIT; Start 05/21/18 at 17:30 Aspirin (Aspirin) 81 mg DAILY PO Last administered on 05/24/18at 08:44; Admin Dose 81 MG; Start 05/22/18 at 10:30 Haloperidol (Haldol) 1 mg Q4H PRN IV Agitation; Start 05/23/18 at 00:30 Haloperidol (Haldol) 2 mg PRN PRN IV Agitation; Start 05/23/18 at 01:00 Furosemide (Lasix) 20 mg BID DIURETICS IV Last administered on 05/24/18at 17:15; Admin Dose 20 MG; Start 05/24/18 at 18:00 Assessment/Plan Chief Complaint/Hosp Course 1. Atrial fibrillation with slow ventricular response and multiple pauses and with 1 long pause of more than 20 seconds which happened during the NG tube placement improved HR now 2. Hypercapnic respiratory failure 3. Status post Pseudomonas pneumonia and bacteremia 4. Encephalopathy 5. History of hypertension 6. History of possible coronary bypass graft 7. 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 Anemia 9. CHF pulm HTN, 10. pleural effusion Recommendations: Antibiotic management as per ID recommendation Supportive care and respiratory care as per pulmonary. We will closely monitor on telemetry. Digoxin and Coreg has been discontinued. diuresis with diamox per pulm We will continue to monitor him closely. CODE STATUS is full code for now given his recent Pseudomonas bacteremia I am very concerned about placing pacemaker in him. Heart rate is currently responding off of AV gianluca blocking agents cont tele Thank you for his referral. DR EWING will be covering me this weekend SAMARIA AGUILAR MD [facility] SAMARIA AGUILAR MD May 24, 2018 19:40
[2018-05-24] MEDS: ATORVASTATIN 10 MG TAB PO SCH (22:35)
[2018-05-25] VITALS (13 sets, daily range): BP systolic 115–135; BP diastolic 58–67; PULSE 43–83; RESP 17–21
--- NOTE | 2018-05-25 04:22 | NUR ---
Pt. 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 took off O2 which I replaced & which was at 3L by NC at start of this shift. Pt. refused PRN bipap,forcefully took it off Pt. a little stubborn ; did not want to be bothered in his sleep ; was able to talk to him into taking his night meds, turning, O2 3L by NC., Afib controlled, normal V/S.
[2018-05-25] MEDS: PANTOPRAZOLE 40 MG INJ IV SCH (05:39)
[2018-05-25] MEDS: FUROSEMIDE 20 MG INJ IV SCH ×2 (05:40→17:22)
[2018-05-25] MEDS: LEVOTHYROXINE 137 MCG TAB PO SCH (05:40)
[2018-05-25] MEDS: Insulin NOVOLOG SS MILD Algorithm (SS with meals and bedtime) SC SCH ×4 (07:00→20:21)
--- NOTE | 2018-05-25 08:05 | PN ---
Date/Time of Note Date/Time of Note DATE: 05/25/18 TIME: 08:03 Assessment/Plan VTE Prophylaxis Risk score (from Ns)>0 risk: 9 SCD applied (from [facility]): No SCD contraindicated: other Pharmacological prophylaxis: other Lines/Catheters IV Catheter Type (from [facility]): Saline Lock Urinary Cath still in place: Yes Reason Cath still needed: urinary retention Assessment/Plan Hospital Course medicine follow up (coverage for Dr Matos) SUBJECTIVE: No acute events noted. No hemoptysis, hematemesis or hematochezia. OBJECTIVE: HEENT: Head is normocephalic. NECK: Supple. HEART: Regular rate. LUNGS: Show diminished breath sounds at the base. ABDOMEN: Soft, nontender to palpation. No rebound or guarding. EXTREMITIES: Negative for clubbing, cyanosis, no edema. DERMATOLOGIC: No rashes. MUSCULOSKELETAL: No joint effusions. NEUROLOGIC: No focal deficits. MEDICATIONS: Reviewed. ASSESSMENT AND PLAN: 1. Acute hypoxic respiratory failure. Etiology is secondary to congestive heart failure, pneumonia. continue BiPAP prn. Would continue current treatment plan. Follow up with pulmonary. Continue nebulizers. Will give intermittent diuretic therapy as needed and monitor closely. 2. Sepsis secondary to urinary tract infection, bacteremia. The patient is completing antibiotic course. Monitor closely. 3. Dysphagia. The patient is pending a swallow evaluation. 4. Diabetes. Continue current insulin regimen. 5. Hypothyroidism. Continue Synthroid. 6. Left testicular mass. The patient has been evaluated by Dr. Ellis. We will continue to monitor. 7. Anemia. Monitor hemoglobin and hematocrit levels. 8. Atrial fibrillation. Continue current medical management. Follow up with cardiology. 9. History of coronary artery disease, status post coronary artery bypass graft. Continue medical management. 10. History of chronic kidney disease. Continue medical management. 11. Alkalosis. Continue to monitor closely. We will give Diamox as needed. Result Diagram: 05/25/1828 05/25/18527 Results 24hrs Laboratory Tests Test 05/24/18 12:01 05/24/18 17:11 05/24/18 21:51 05/25/18 05:28 Bedside Glucose 181 101 153 White Blood 6.3 Count Red Blood Count 2.93 L Hemoglobin 9.8 L Hematocrit 31.0 L Mean Corpuscular 105.8 H Volume Mean Corpuscular 33.4 H Hemoglobin Mean Corpuscular 31.6 L Hemoglobin Sharita nt Red Cell 20.2 H Distribution Width Platelet Count 151 Mean Platelet 11.8 H Volume Immature 2.600 H Granulocytes % Neutrophils % 66.5 Lymphocytes % 13.3 L Monocytes % 11.4 H Eosinophils % 5.4 Basophils % 0.8 Nucleated Red 0.0 Blood Cells % Immature 0.160 H Granulocytes # Neutrophils # 4.2 Lymphocytes # 0.8 Monocytes # 0.7 Eosinophils # 0.3 Basophils # 0.1 Nucleated Red 0.0 Blood Cells # Sodium Level 143 Potassium Level 3.7 Chloride Level 103 Carbon Dioxide 37 H Level Anion Gap 3 L Blood Urea 25 H Nitrogen Creatinine 1.18 Est Glomerular Filtrat Rate mL/min Glucose Level 112 Calcium Level 9.4 Phosphorus Level 2.5 Magnesium Level 1.9 Test 05/25/18 07:31 Bedside Glucose 111 Exam/Review of Systems Vital Signs Vitals Vital Signs Date Temp Pulse Resp B/P (MAP) Pulse Ox O2 O2 Flow FiO2 Time Delivery Rate 05/25/18 98.0 69 18 135/67 100 Nasal 07:21 (89) Cannula 05/24/18 3.0 22:05 05/24/18 30 20:52 Intake and Output 05/24/18 05/24/18 05/25/18 1515:00 23:00 07:00 IntakeIntake Total 500 ml 0 ml OutputOutput Total 600 ml 1300 ml BalanceBalance -100 ml -1300 ml Medications Medications Current Medications Acetaminophen (Tylenol Tab) 650 mg Q6H PRN PO MILD PAIN(1-3)OR ELEVATED TEMP; Start 05/17/18 at 06:30 Allopurinol (Zyloprim) 200 mg DAILY PO Last administered on 05/24/18at 08:44; Admin Dose 200 MG; Start 05/17/18 at 09:00 Atorvastatin Calcium (Lipitor) 10 mg HS PO Last administered on 05/24/18at 22:35; Admin Dose 10 MG; Start 05/17/18 at 21:00 Cholecalciferol (Vitamin D) 5,000 unit DAILY PO Last administered on 05/24/18at 08:44; Admin Dose 5,000 UNIT; Start 05/17/18 at 09:00 Levothyroxine Sodium (Synthroid) 137 mcg DAILY@06 PO Last administered on 05/25/18at 05:40; Admin Dose 137 MCG; Start 05/18/18 at 06:00 Ondansetron HCl (Zofran Inj) 4 mg Q4H PRN IV NAUSEA AND/OR VOMITING; Start 05/17/18 at 06:30 Pantoprazole (Protonix Iv) 40 mg DAILY@06 IV Last administered on 05/25/18at 05:39; Admin Dose 40 MG; Start 05/17/18 at 06:00 Tobramycin Sulfate (Tobrex 0.3% Oph Drop) 1 drop BID BOTH EYES Last administered on 05/24/18at 22:34; Admin Dose 1 DROP; Start 05/17/18 at 09:00 Miscellaneous Information 1 ea NOTE XX ; Start 05/17/18 at 07:00 Glucose (Glutose) 15 gm Q15M PRN PO DECREASED GLUCOSE; Start 05/17/18 at 07:00 Glucose (Glutose) 22.5 gm Q15M PRN PO DECREASED GLUCOSE; Start 05/17/18 at 07:00 Dextrose (D50w Syringe) 25 ml Q15M PRN IV DECREASED GLUCOSE; Start 05/17/18 at 07:00 Dextrose (D50w Syringe) 50 ml Q15M PRN IV DECREASED GLUCOSE; Start 05/17/18 at 07:00 Glucagon (Glucagen) 1 mg Q15M PRN IM DECREASED GLUCOSE; Start 05/17/18 at 07:00 Glucose (Glutose) 15 gm Q15M PRN BUCCAL DECREASED GLUCOSE; Start 05/17/18 at 07:00 Albuterol (Proventil 0.083% (Neb)) 2.5 mg Q6H RESP THERAPY PRN HHN WHEEZING Last administered on 05/24/18at 17:22; Admin Dose 2.5 MG; Start 05/19/18 at 09:00 Insulin Aspart (Novolog Insulin Pen) (Adult SC Insulin - Mild Algorithm)... AC MEALS AND BEDTIME SC Last administered on 05/24/18at 12:04; Admin Dose 2 UNIT; Start 05/21/18 at 17:30 Aspirin (Aspirin) 81 mg DAILY PO Last administered on 05/24/18at 08:44; Admin Dose 81 MG; Start 05/22/18 at 10:30 Haloperidol (Haldol) 1 mg Q4H PRN IV Agitation; Start 05/23/18 at 00:30 Haloperidol (Haldol) 2 mg PRN PRN IV Agitation; Start 05/23/18 at 01:00 Furosemide (Lasix) 20 mg BID DIURETICS IV Last administered on 05/25/18at 05:40; Admin Dose 20 MG; Start 05/24/18 at 18:00 TOMMY GODDARD DO May 25, 2018 08:05
[2018-05-25] MEDS: TOBRAMYCIN 0.3% 5 ML OPH BOTH EYES SCH ×2 (08:47→20:05)
[2018-05-25] MEDS: ALLOPURINOL 100 MG TAB PO SCH (08:49)
[2018-05-25] MEDS: ASPIRIN 81 MG TAB PO SCH (08:49)
[2018-05-25] MEDS: CHOLECALCIFEROL 1,000 UNIT TAB PO SCH (08:50)
[2018-05-25] MEDS: BALSAM PERU/CASTOR OIL 60 GM TUBE TOP SCH ×2 (08:50→20:07)
--- NOTE | 2018-05-25 10:24 | NUR ---
ST NOTE: pt seen for f/up; still on puree;nctr thick tolerating; vitals pt afebrile; CXR 05/22 Mild interstitial edema is slightly improved. Bibasilar atelectasis is unchanged. Small bilateral pleural effusions unchanged. pt on nasal cannula 3 liters; some soft/ground items; able to tolerate; pt with lower dentition only; thin via spoon trialed; suspect spillage no cough but after multiple repeat trials throat clear; via cup overt s/s of diff. but good elevation suspect timing and loss of control. puree wfl rec. video swallow; attempting to call md; pt wants coffee and feel video appropriate at this time; pt awake and able to follow and participate; rec. cont to follow obtain video order; swallow exercises; introduced effortful swallow
--- NOTE | 2018-05-25 10:59 | NUR ---
ENDORSED VERBAL REPORT TO HANNAH BLACK;CARE RESUMED BY MATTHEW
--- NOTE | 2018-05-25 11:18 | CONS ---
Date/Time of Note Date/Time of Note DATE: 05/25/18 TIME: 11:18 Assessment/Plan Assessment/Plan Hospital Course ID PROGRESS NOTE CURRENT ABX: DAY # => OFF ABX s/p MERREM 05/25/1852705/25/18 05 24H INTERVAL SUMMARY * Resting without distress on supplemental O2, awakens and reports no new issues, no c/o MICRO * 05/17/18 (-)MRSA Nares PHYSICAL EXAMINATION: GENERAL: Afebrile, VSS, HEENT: AT, NC, anicteric NECK: Supple, trach CHEST: Equal chest rise bilaterally, without dyspnea on observation HEART: Pulse RRR ABDOMEN: Soft / NT EXTREMITIES: Warm, dry, SKIN: No rash, no diaphoresis ID ASSESSMENT 83 yo M admit with: 1. S/p symptomatic bradycardia 2. Acute on chronic respiratory failure, status post pneumonia 3. Status post Pseudomonas bacteremia, blood cultures since May 08 negative 4. Encephalopathy 5. Coronary artery disease with a history of CABG and valve replacement (-)MRSA Nares ABX ALLERGIES: NKDA INVASIVES: PI CURRENT ABX: DAY OFF ABX s/p MERREM ID RECOMMENDATIONS/PLAN: Continue current ABX = ASP precautions . Result Diagram: 05/25/1852705/25/18527 Results 24hrs Laboratory Tests Test 05/24/18 12:01 05/24/18 17:11 05/24/18 21:51 05/25/18 05:28 Bedside Glucose 181 101 153 White Blood 6.3 Count Red Blood Count 2.93 L Hemoglobin 9.8 L Hematocrit 31.0 L Mean Corpuscular 105.8 H Volume Mean Corpuscular 33.4 H Hemoglobin Mean Corpuscular 31.6 L Hemoglobin Sharita nt Red Cell 20.2 H Distribution Width Platelet Count 151 Mean Platelet 11.8 H Volume Immature 2.600 H Granulocytes % Neutrophils % 66.5 Lymphocytes % 13.3 L Monocytes % 11.4 H Eosinophils % 5.4 Basophils % 0.8 Nucleated Red 0.0 Blood Cells % Immature 0.160 H Granulocytes # Neutrophils # 4.2 Lymphocytes # 0.8 Monocytes # 0.7 Eosinophils # 0.3 Basophils # 0.1 Nucleated Red 0.0 Blood Cells # Sodium Level 143 Potassium Level 3.7 Chloride Level 103 Carbon Dioxide 37 H Level Anion Gap 3 L Blood Urea 25 H Nitrogen Creatinine 1.18 Est Glomerular Filtrat Rate mL/min Glucose Level 112 Calcium Level 9.4 Phosphorus Level 2.5 Magnesium Level 1.9 Test 05/25/18 07:31 Bedside Glucose 111 Consultation Date/Type/Reason Admit Date/Time May 17, 2018 at 05:26 Initial Consult Date 05/17/18 Requesting Provider: MAIN LANG MD Exam/Review of Systems Vital Signs Vitals Vital Signs Date Temp Pulse Resp B/P (MAP) Pulse Ox O2 O2 Flow FiO2 Time Delivery Rate 05/25/18 63 08:55 05/25/18 Nasal 3.0 08:00 Cannula 05/25/18 98.0 18 135/67 100 07:21 (89) 05/24/18 30 20:52 Intake and Output 05/24/18 05/24/18 05/25/18 1515:00 23:00 07:00 IntakeIntake Total 500 ml 0 ml OutputOutput Total 600 ml 1300 ml BalanceBalance -100 ml -1300 ml Medications Medications Current Medications Acetaminophen (Tylenol Tab) 650 mg Q6H PRN PO MILD PAIN(1-3)OR ELEVATED TEMP; Start 05/17/18 at 06:30 Allopurinol (Zyloprim) 200 mg DAILY PO Last administered on 05/25/18at 08:49; Admin Dose 200 MG; Start 05/17/18 at 09:00 Atorvastatin Calcium (Lipitor) 10 mg HS PO Last administered on 05/24/18at 22:35; Admin Dose 10 MG; Start 05/17/18 at 21:00 Cholecalciferol (Vitamin D) 5,000 unit DAILY PO Last administered on 05/25/18at 08:50; Admin Dose 5,000 UNIT; Start 05/17/18 at 09:00 Levothyroxine Sodium (Synthroid) 137 mcg DAILY@06 PO Last administered on 05/25/18at 05:40; Admin Dose 137 MCG; Start 05/18/18 at 06:00 Ondansetron HCl (Zofran Inj) 4 mg Q4H PRN IV NAUSEA AND/OR VOMITING; Start 05/17/18 at 06:30 Pantoprazole (Protonix Iv) 40 mg DAILY@06 IV Last administered on 05/25/18at 05:39; Admin Dose 40 MG; Start 05/17/18 at 06:00 Tobramycin Sulfate (Tobrex 0.3% Oph Drop) 1 drop BID BOTH EYES Last administered on 05/25/18at 08:47; Admin Dose 1 DROP; Start 05/17/18 at 09:00 Miscellaneous Information 1 ea NOTE XX ; Start 05/17/18 at 07:00 Glucose (Glutose) 15 gm Q15M PRN PO DECREASED GLUCOSE; Start 05/17/18 at 07:00 Glucose (Glutose) 22.5 gm Q15M PRN PO DECREASED GLUCOSE; Start 05/17/18 at 07:00 Dextrose (D50w Syringe) 25 ml Q15M PRN IV DECREASED GLUCOSE; Start 05/17/18 at 07:00 Dextrose (D50w Syringe) 50 ml Q15M PRN IV DECREASED GLUCOSE; Start 05/17/18 at 07:00 Glucagon (Glucagen) 1 mg Q15M PRN IM DECREASED GLUCOSE; Start 05/17/18 at 07:00 Glucose (Glutose) 15 gm Q15M PRN BUCCAL DECREASED GLUCOSE; Start 05/17/18 at 07:00 Albuterol (Proventil 0.083% (Neb)) 2.5 mg Q6H RESP THERAPY PRN HHN WHEEZING Last administered on 05/24/18at 17:22; Admin Dose 2.5 MG; Start 05/19/18 at 09:00 Insulin Aspart (Novolog Insulin Pen) (Adult SC Insulin - Mild Algorithm)... AC MEALS AND BEDTIME SC Last administered on 05/24/18at 12:04; Admin Dose 2 UNIT; Start 05/21/18 at 17:30 Aspirin (Aspirin) 81 mg DAILY PO Last administered on 05/25/18at 08:49; Admin Dose 81 MG; Start 05/22/18 at 10:30 Haloperidol (Haldol) 1 mg Q4H PRN IV Agitation; Start 05/23/18 at 00:30 Haloperidol (Haldol) 2 mg PRN PRN IV Agitation; Start 05/23/18 at 01:00 Furosemide (Lasix) 20 mg BID DIURETICS IV Last administered on 05/25/18at 05:40; Admin Dose 20 MG; Start 05/24/18 at 18:00 RUSTY FERNANDEZ NP May 25, 2018 11:18
--- NOTE | 2018-05-25 14:49 | CONS ---
Date/Time of Note Date/Time of Note DATE: 05/25/18 TIME: 14:47 Consult Date/Type/Reason Admit Date/Time May 17, 2018 at 05:26 Initial Consult Date 05/17/18 Type of Consultation: Pulm Requesting Provider: MAIN LANG MD Subjective No events overnight. Objective Vital Signs Date Temp Pulse Resp B/P (MAP) Pulse Ox O2 O2 Flow FiO2 Time Delivery Rate 05/25/18 74 12:52 05/25/18 98.0 20 115/65 100 Nasal 11:18 (82) Cannula 05/25/18 3.0 08:00 05/24/18 30 20:52 Intake and Output 05/24/18 05/24/18 05/25/18 1515:00 23:00 07:00 IntakeIntake Total 500 ml 0 ml OutputOutput Total 600 ml 1300 ml BalanceBalance -100 ml -1300 ml Exam HEENT: Neck supple; no JVD; no LAD CVS: irreg irreg, S1 and S2 CHEST: Coarse BS b/l ABD: Soft, NT, + BS EXT: No c/c/e Results/Medications Result Diagram: 05/25/1828 05/25/1828 Results 24 hrs Laboratory Tests Test 05/24/18 17:11 05/24/18 21:51 05/25/18 05:28 05/25/18 07:31 Bedside Glucose 101 153 111 White Blood 6.3 Count Red Blood Count 2.93 L Hemoglobin 9.8 L Hematocrit 31.0 L Mean Corpuscular 105.8 H Volume Mean Corpuscular 33.4 H Hemoglobin Mean Corpuscular 31.6 L Hemoglobin Sharita nt Red Cell 20.2 H Distribution Width Platelet Count 151 Mean Platelet 11.8 H Volume Immature 2.600 H Granulocytes % Neutrophils % 66.5 Lymphocytes % 13.3 L Monocytes % 11.4 H Eosinophils % 5.4 Basophils % 0.8 Nucleated Red 0.0 Blood Cells % Immature 0.160 H Granulocytes # Neutrophils # 4.2 Lymphocytes # 0.8 Monocytes # 0.7 Eosinophils # 0.3 Basophils # 0.1 Nucleated Red 0.0 Blood Cells # Sodium Level 143 Potassium Level 3.7 Chloride Level 103 Carbon Dioxide 37 H Level Anion Gap 3 L Blood Urea 25 H Nitrogen Creatinine 1.18 Est Glomerular Filtrat Rate mL/min Glucose Level 112 Calcium Level 9.4 Phosphorus Level 2.5 Magnesium Level 1.9 Test 05/25/18 11:46 Bedside Glucose 134 Medications Current Medications Acetaminophen (Tylenol Tab) 650 mg Q6H PRN PO MILD PAIN(1-3)OR ELEVATED TEMP; Start 05/17/18 at 06:30 Allopurinol (Zyloprim) 200 mg DAILY PO Last administered on 05/25/18at 08:49; Admin Dose 200 MG; Start 05/17/18 at 09:00 Atorvastatin Calcium (Lipitor) 10 mg HS PO Last administered on 05/24/18at 22:35; Admin Dose 10 MG; Start 05/17/18 at 21:00 Cholecalciferol (Vitamin D) 5,000 unit DAILY PO Last administered on 05/25/18at 08:50; Admin Dose 5,000 UNIT; Start 05/17/18 at 09:00 Levothyroxine Sodium (Synthroid) 137 mcg DAILY@06 PO Last administered on 05/25/18at 05:40; Admin Dose 137 MCG; Start 05/18/18 at 06:00 Ondansetron HCl (Zofran Inj) 4 mg Q4H PRN IV NAUSEA AND/OR VOMITING; Start 05/17/18 at 06:30 Pantoprazole (Protonix Iv) 40 mg DAILY@06 IV Last administered on 05/25/18at 05:39; Admin Dose 40 MG; Start 05/17/18 at 06:00 Tobramycin Sulfate (Tobrex 0.3% Oph Drop) 1 drop BID BOTH EYES Last administered on 05/25/18at 08:47; Admin Dose 1 DROP; Start 05/17/18 at 09:00 Miscellaneous Information 1 ea NOTE XX ; Start 05/17/18 at 07:00 Glucose (Glutose) 15 gm Q15M PRN PO DECREASED GLUCOSE; Start 05/17/18 at 07:00 Glucose (Glutose) 22.5 gm Q15M PRN PO DECREASED GLUCOSE; Start 05/17/18 at 07:00 Dextrose (D50w Syringe) 25 ml Q15M PRN IV DECREASED GLUCOSE; Start 05/17/18 at 07:00 Dextrose (D50w Syringe) 50 ml Q15M PRN IV DECREASED GLUCOSE; Start 05/17/18 at 07:00 Glucagon (Glucagen) 1 mg Q15M PRN IM DECREASED GLUCOSE; Start 05/17/18 at 07:00 Glucose (Glutose) 15 gm Q15M PRN BUCCAL DECREASED GLUCOSE; Start 05/17/18 at 07:00 Albuterol (Proventil 0.083% (Neb)) 2.5 mg Q6H RESP THERAPY PRN HHN WHEEZING Last administered on 05/24/18at 17:22; Admin Dose 2.5 MG; Start 05/19/18 at 09:00 Insulin Aspart (Novolog Insulin Pen) (Adult SC Insulin - Mild Algorithm)... AC MEALS AND BEDTIME SC Last administered on 05/24/18at 12:04; Admin Dose 2 UNIT; Start 05/21/18 at 17:30 Aspirin (Aspirin) 81 mg DAILY PO Last administered on 05/25/18at 08:49; Admin Dose 81 MG; Start 05/22/18 at 10:30 Haloperidol (Haldol) 1 mg Q4H PRN IV Agitation; Start 05/23/18 at 00:30 Haloperidol (Haldol) 2 mg PRN PRN IV Agitation; Start 05/23/18 at 01:00 Furosemide (Lasix) 20 mg BID DIURETICS IV Last administered on 05/25/18at 05:40; Admin Dose 20 MG; Start 05/24/18 at 18:00 Assessment/Plan Additional Assessment/Plan IMP 1. 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 Possible ILD 3. History of coronary artery disease with coronary artery bypass graft surgery 4. Status post atrial fibrillation rapid ventricular rate 5. Resolving encephalopathy toxic metabolic RECS: 1. Nocturnal BIPAP 2. Titrate O2 to keep SpO2 88-92% 3. Keep I/O's even 4. OOB to chair BERRY NUNEZ MD May 25, 2018 14:49
--- NOTE | 2018-05-25 18:38 | NUR ---
For Bioethics meeting on sunday05/27/2018. Seen by , for follow up barium video swallow.
[2018-05-25] MEDS: ATORVASTATIN 10 MG TAB PO SCH (20:05)
[2018-05-26] VITALS (10 sets, daily range): BP systolic 113–121; BP diastolic 55–78; PULSE 44–79; RESP 16–19
[2018-05-26] MEDS: FUROSEMIDE 20 MG INJ IV SCH ×2 (05:33→18:00)
[2018-05-26] MEDS: PANTOPRAZOLE 40 MG INJ IV SCH (05:35)
[2018-05-26] MEDS: LEVOTHYROXINE 137 MCG TAB PO SCH (05:35)
[2018-05-26] MEDS: Insulin NOVOLOG SS MILD Algorithm (SS with meals and bedtime) SC SCH ×4 (07:00→20:37)
--- NOTE | 2018-05-26 07:14 | NUR ---
EOSS Pt monitored through night, turned and repositioned q2 hours, skin, wound, and incontinent care performed, pictures of wounds taken. Pt's friend Pat called for update on pt status. No acute events, pt resting in bed, bed alarm on, call light within reach, will endorse.
--- NOTE | 2018-05-26 07:19 | PN ---
Date/Time of Note Date/Time of Note DATE: 05/26/18 TIME: 07:19 Assessment/Plan VTE Prophylaxis Risk score (from Ns)>0 risk: 7 SCD applied (from Ns): No SCD contraindicated: other Pharmacological prophylaxis: other Lines/Catheters IV Catheter Type (from [facility]): [place] Lock Urinary Cath still in place: Yes Reason Cath still needed: urinary retention Assessment/Plan Hospital Course medicine follow up (coverage for Dr Matos) SUBJECTIVE: No acute events noted. No hemoptysis, hematemesis or hematochezia. OBJECTIVE: HEENT: Head is normocephalic. NECK: Supple. HEART: Regular rate. LUNGS: Show diminished breath sounds at the base. ABDOMEN: Soft, nontender to palpation. No rebound or guarding. EXTREMITIES: Negative for clubbing, cyanosis, no edema. DERMATOLOGIC: No rashes. MUSCULOSKELETAL: No joint effusions. NEUROLOGIC: No focal deficits. MEDICATIONS: Reviewed. ASSESSMENT AND PLAN: 1. Acute hypoxic respiratory failure. Etiology is secondary to congestive heart failure, pneumonia. continue BiPAP prn. Would continue current treatment plan. Follow up with pulmonary. Continue nebulizers. Will give intermittent diuretic therapy as needed and monitor closely. 2. Sepsis secondary to urinary tract infection, bacteremia. The patient is completing antibiotic course. Monitor closely. 3. Dysphagia. The patient is pending a swallow evaluation. 4. Diabetes. Continue current insulin regimen. 5. Hypothyroidism. Continue Synthroid. 6. Left testicular mass. The patient has been evaluated by Dr. Ellis. We will continue to monitor. 7. Anemia. Monitor hemoglobin and hematocrit levels. 8. Atrial fibrillation. Continue current medical management. Follow up with cardiology. 9. History of coronary artery disease, status post coronary artery bypass graft. Continue medical management. 10. History of chronic kidney disease. Continue medical management. 11. Alkalosis. Continue to monitor closely. We will give Diamox as needed. Result Diagram: 05/25/18 0528 05/25/18 0528 Results 24hrs Laboratory Tests Test 05/25/18 07:31 05/25/18 11:46 05/25/18 17:19 05/25/18 20:07 Bedside Glucose 111 134 122 199 Test 05/26/18 01:46 Bedside Glucose 103 Exam/Review of Systems Vital Signs Vitals Vital Signs Date Temp Pulse Resp B/P (MAP) Pulse Ox O2 O2 Flow FiO2 Time Delivery Rate 05/26/18 3.0 04:39 05/26/18 98.1 61 19 119/55 99 04:06 (76) 05/25/18 Nasal 20:00 Cannula 05/24/18 30 20:52 Intake and Output 05/25/18 05/25/18 05/26/18 1515:00 23:00 07:00 IntakeIntake Total 400 ml 70 ml OutputOutput Total 1800 ml 2200 ml BalanceBalance -1400 ml -2130 ml Medications Medications Current Medications Acetaminophen (Tylenol Tab) 650 mg Q6H PRN PO MILD PAIN(1-3)OR ELEVATED TEMP; Start 05/17/18 at 06:30 Allopurinol (Zyloprim) 200 mg DAILY PO Last administered on 05/25/18at 08:49; Admin Dose 200 MG; Start 05/17/18 at 09:00 Atorvastatin Calcium (Lipitor) 10 mg HS PO Last administered on 05/25/18at 20:05; Admin Dose 10 MG; Start 05/17/18 at 21:00 Cholecalciferol (Vitamin D) 5,000 unit DAILY PO Last administered on 05/25/18at 08:50; Admin Dose 5,000 UNIT; Start 05/17/18 at 09:00 Levothyroxine Sodium (Synthroid) 137 mcg DAILY@06 PO Last administered on 05/26/18at 05:35; Admin Dose 137 MCG; Start 05/18/18 at 06:00 Ondansetron HCl (Zofran Inj) 4 mg Q4H PRN IV NAUSEA AND/OR VOMITING; Start 05/17/18 at 06:30 Pantoprazole (Protonix Iv) 40 mg DAILY@06 IV Last administered on 05/26/18at 05:35; Admin Dose 40 MG; Start 05/17/18 at 06:00 Tobramycin Sulfate (Tobrex 0.3% Oph Drop) 1 drop BID BOTH EYES Last administered on 05/25/18at 20:05; Admin Dose 1 DROP; Start 05/17/18 at 09:00 Miscellaneous Information 1 ea NOTE XX ; Start 05/17/18 at 07:00 Glucose (Glutose) 15 gm Q15M PRN PO DECREASED GLUCOSE; Start 05/17/18 at 07:00 Glucose (Glutose) 22.5 gm Q15M PRN PO DECREASED GLUCOSE; Start 05/17/18 at 07:00 Dextrose (D50w Syringe) 25 ml Q15M PRN IV DECREASED GLUCOSE; Start 05/17/18 at 07:00 Dextrose (D50w Syringe) 50 ml Q15M PRN IV DECREASED GLUCOSE; Start 05/17/18 at 07:00 Glucagon (Glucagen) 1 mg Q15M PRN IM DECREASED GLUCOSE; Start 05/17/18 at 07:00 Glucose (Glutose) 15 gm Q15M PRN BUCCAL DECREASED GLUCOSE; Start 05/17/18 at 07:00 Albuterol (Proventil 0.083% (Neb)) 2.5 mg Q6H RESP THERAPY PRN HHN WHEEZING Last administered on 05/24/18at 17:22; Admin Dose 2.5 MG; Start 05/19/18 at 09:00 Insulin Aspart (Novolog Insulin Pen) (Adult SC Insulin - Mild Algorithm)... AC MEALS AND BEDTIME SC Last administered on 05/25/18at 20:21; Admin Dose 1 UNIT; Start 05/21/18 at 17:30 Aspirin (Aspirin) 81 mg DAILY PO Last administered on 05/25/18at 08:49; Admin Dose 81 MG; Start 05/22/18 at 10:30 Haloperidol (Haldol) 1 mg Q4H PRN IV Agitation; Start 05/23/18 at 00:30 Haloperidol (Haldol) 2 mg PRN PRN IV Agitation; Start 05/23/18 at 01:00 Furosemide (Lasix) 20 mg BID DIURETICS IV Last administered on 05/26/18at 05:33; Admin Dose 20 MG; Start 05/24/18 at 18:00 TOMMY GODDARD DO May 26, 2018 07:19
[2018-05-26] MEDS: BALSAM PERU/CASTOR OIL 60 GM TUBE TOP SCH ×2 (09:00→20:37)
[2018-05-26] MEDS: ALLOPURINOL 100 MG TAB PO SCH (10:34)
[2018-05-26] MEDS: TOBRAMYCIN 0.3% 5 ML OPH BOTH EYES SCH ×2 (10:35→20:37)
[2018-05-26] MEDS: ASPIRIN 81 MG TAB PO SCH (10:35)
[2018-05-26] MEDS: CHOLECALCIFEROL 1,000 UNIT TAB PO SCH (10:35)
--- NOTE | 2018-05-26 13:46 | CONS ---
Date/Time of Note Date/Time of Note DATE: 05/26/18 TIME: 13:45 Consult Date/Type/Reason Admit Date/Time May 17, 2018 at 05:26 Initial Consult Date 05/17/18 Type of Consultation: Pulm Requesting Provider: MAIN LANG MD Subjective No events noted overnight. Sleeping at the time of visit. Objective Vital Signs Date Temp Pulse Resp B/P (MAP) Pulse Ox O2 O2 Flow FiO2 Time Delivery Rate 05/26/18 70 08:39 05/26/18 Nasal 3.0 08:00 Cannula 05/26/18 97.9 16 121/60 100 07:33 (80) 05/24/18 30 20:52 Intake and Output 05/25/18 05/25/18 05/26/18 1515:00 23:00 07:00 IntakeIntake Total 400 ml 70 ml OutputOutput Total 1800 ml 2200 ml BalanceBalance -1400 ml -2130 ml Exam HEENT: Neck supple; no JVD; no LAD CVS: irreg irreg, S1 and S2 CHEST: Coarse BS b/l ABD: Soft, NT, + BS EXT: No c/c/e Results/Medications Result Diagram: 05/25/1852705/25/18 05 Results 24 hrs Laboratory Tests Test 05/25/18 17:19 05/25/18 20:07 05/26/18 01:46 05/26/18 11:59 Bedside Glucose 122 199 103 108 Medications Current Medications Acetaminophen (Tylenol Tab) 650 mg Q6H PRN PO MILD PAIN(1-3)OR ELEVATED TEMP; Start 05/17/18 at 06:30 Allopurinol (Zyloprim) 200 mg DAILY PO Last administered on 05/26/18at 10:34; Admin Dose 200 MG; Start 05/17/18 at 09:00 Atorvastatin Calcium (Lipitor) 10 mg HS PO Last administered on 05/25/18at 20:05; Admin Dose 10 MG; Start 05/17/18 at 21:00 Cholecalciferol (Vitamin D) 5,000 unit DAILY PO Last administered on 05/26/18at 10:35; Admin Dose 5,000 UNIT; Start 05/17/18 at 09:00 Levothyroxine Sodium (Synthroid) 137 mcg DAILY@06 PO Last administered on 05/26/18at 05:35; Admin Dose 137 MCG; Start 05/18/18 at 06:00 Ondansetron HCl (Zofran Inj) 4 mg Q4H PRN IV NAUSEA AND/OR VOMITING; Start 05/17/18 at 06:30 Pantoprazole (Protonix Iv) 40 mg DAILY@06 IV Last administered on 05/26/18at 05:35; Admin Dose 40 MG; Start 05/17/18 at 06:00 Tobramycin Sulfate (Tobrex 0.3% Oph Drop) 1 drop BID BOTH EYES Last administered on 05/26/18at 10:35; Admin Dose 1 DROP; Start 05/17/18 at 09:00 Miscellaneous Information 1 ea NOTE XX ; Start 05/17/18 at 07:00 Glucose (Glutose) 15 gm Q15M PRN PO DECREASED GLUCOSE; Start 05/17/18 at 07:00 Glucose (Glutose) 22.5 gm Q15M PRN PO DECREASED GLUCOSE; Start 05/17/18 at 07:00 Dextrose (D50w Syringe) 25 ml Q15M PRN IV DECREASED GLUCOSE; Start 05/17/18 at 07:00 Dextrose (D50w Syringe) 50 ml Q15M PRN IV DECREASED GLUCOSE; Start 05/17/18 at 07:00 Glucagon (Glucagen) 1 mg Q15M PRN IM DECREASED GLUCOSE; Start 05/17/18 at 07:00 Glucose (Glutose) 15 gm Q15M PRN BUCCAL DECREASED GLUCOSE; Start 05/17/18 at 07:00 Albuterol (Proventil 0.083% (Neb)) 2.5 mg Q6H RESP THERAPY PRN HHN WHEEZING Last administered on 05/24/18at 17:22; Admin Dose 2.5 MG; Start 05/19/18 at 09:00 Insulin Aspart (Novolog Insulin Pen) (Adult SC Insulin - Mild Algorithm)... AC MEALS AND BEDTIME SC Last administered on 05/25/18at 20:21; Admin Dose 1 UNIT; Start 05/21/18 at 17:30 Aspirin (Aspirin) 81 mg DAILY PO Last administered on 05/26/18at 10:35; Admin Dose 81 MG; Start 05/22/18 at 10:30 Haloperidol (Haldol) 1 mg Q4H PRN IV Agitation; Start 05/23/18 at 00:30 Haloperidol (Haldol) 2 mg PRN PRN IV Agitation; Start 05/23/18 at 01:00 Furosemide (Lasix) 20 mg BID DIURETICS IV Last administered on 05/26/18at 05:33; Admin Dose 20 MG; Start 05/24/18 at 18:00 Assessment/Plan Additional Assessment/Plan IMP: 1. 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 Possible ILD 3. History of coronary artery disease with coronary artery bypass graft surgery 4. Status post atrial fibrillation rapid ventricular rate 5. Resolving encephalopathy toxic metabolic RECS: 1. Nocturnal BIPAP 2. Titrate O2 to keep SpO2 88-92% 3. Keep I/O's even 4. OOB to chair 5. Strict aspiration precautions BERRY NUNEZ MD May 26, 2018 13:46
--- NOTE | 2018-05-26 18:22 | NUR ---
EOSS: Patient lying comfortably in bed on NC 3L, AOx1 to self. Patient traveled to Modified barium swallow without incident. No other incidents occurred during shift. Patient fed meals throughout shift without incidents. Pat, POA, updated on patient's status. All orders and care performed per MD order. VSS. WCTM.
--- NOTE | 2018-05-26 19:40 | NUR ---
Video Swallow Study Completed: Brief Hx: Mr. Nunez is an 83-year-old male with past medical history of vascular dementia, atrial fibrillation, CHF, coronary artery disease, status post coronary artery bypass graft, diabetes mellitus, hypertension, BPH, and dyslipidemia. The patient was recently admitted to [facility] with supratherapeutic INR and body ecchymosis. After discharge he returned to [facility] with ongoing respiratory failure. The patient was diagnosed with pseudomonas aeruginosa urinary tract infection and bacteremia. Unfortunately, patient's respiratory failure continued and he was transferred to [facility] where he was placed intermittently on BiPAP. He was transferred to ICU to initiate a dopamine drip after he was noted to be more bradycardic. Vitals: temp: 98.1; RR: 18-20; SPO2: 99% on 3 liters/min on NC WBC: 6.3; Hgb/HCt: 9.8L/31.0L Subjective assessment of cognition specific to test: Pt was awake, alert and oriented to self only. he was agreeable to participate in evaluation. Total Swallows: 15 Total Fluro time: 2.3 Barium consistencies: thin by teaspoon x1, thin by cup x1, NTl by teaspoon x1, cup x 4 (3 singles sips were not fluored but provided as a wash down throughout the study), NTL by straw x1, puree x 2, soft/finely chopped x1 and mixed fruit x1. Trim And Burr Operator view: age-related cervical spine curving, which places the pt in a more forward tilted position. Also questionable age-related osteophytes around C4-C6. Oral phase of swallow: Slow but adequate bolus manipulation, mastication and cohesive formation with puree, soft/finely chopped and more reduced with mixed fruit consistency. Lingual discoordination and lingual pumping was noted during all second dry swallows. Decreased A-P bolus transport, but no residue in the oral cavity after the swallow. No anterior oral leakage noted across p.o consistencies. Pharyngeal phase of swallow: Delayed/discoordinated trigger w/ liquids initiating at the level of the valleculae and both the valleculae and lateral channels with solids. During the swallow, there was moderately reduced base of tongue retraction, and posterior pharyngeal wall constriction, aswell as mild-moderately reduced hyolaryngeal excursion/elevation and epiglottic inversion. Airway closure was WFL. Also, as the viscosity increased from liquids to solids, there was moderate residue in the valleculae during the swallow and mild-moderate after the second swallow, w/ a liquid wash, which is indicative of moderately reduced BOT retraction and reduced laryngeal elevation. During the swallow with NTL by straw, there was radiographic evidence of transient penetration within the laryngeal vestibule but cleared immediately following the swallow, due to poor oropharyngeal control. Radiographic evidence of deep penetration to the level of the TVF's with thin liquids by cup with visible residue which remained after the swallow, which did not result in aspiration. Throat clear was then utilized as a compensatory strategy, which was successful in clearing. However, it is important to note that the amount of thin liquids was limited to one trial, because sequential sips, would have resulted in aspiration. Also, effortful swallow and chin tuck were attempted as compensatory strategies, but were not successful in preventing deep penetration, which could eventually lead to aspiration. There was also once instance of penetration with mixed fruit consistency which eventually lead to deep penetration to the level of the TVF's which remained on the cords after the swallow. Pt did not feel the deep penetration and was again prompted to use a hard throat clear to remove the residue. Cervical-Esophageal phase of swallow: questionable slow motility through the proximal esophagus with suspected bolus retrograde with solids. Penetration-Aspiration Scale: Thin liquids by teaspoon: 1- no aspiration/no penetration Thin liquids by cup: 5 , penetrates larynx contacts folds and visible laryngeal vestibule mixed fruit consistency: 3 and turns into 5 (penetrates larynx with visible residue and goes to the level of the TVFS and remains on cords after the swallow soft/finely chopped: no aspiration/no penetration Fios: 5 Residue Scale: 2 (moderate), requires double dry swallow swallow and liquid wash after every bite to clear the residue. Impression: Moderate oropharyngeal dysphagia associated with reduced base of tongue retraction, reduced hyolaryngeal excursion/elevation, timing and coordination, reduced epiglottic inversion and pharyngeal constrictor weakness. Moderate residue in the pharyngeal region during he swallow and successfully reduces the viscosity of residue with use of swallowing maneuvers (double dry swallow and liquid wash). Pt is at risk of aspiration if the swallowing maneuvers are not met during all meals. No penetration/aspiration with NTL by cup, thin by TEASPOON ONLY and soft/finely chopped textures on video. Recommendations; 1. continue dysphagia therapy 2. continue NTL by cup and advance to finely chopped/soft texture diet with use of double dry swallow and liquid wash. 3. Administer crushed medication with NTL and/or puree followed by double dry swallow and liquid wash 4. no straws at this time 5. Consider f/u with GI regarding the mild bolus retrograde
--- NOTE | 2018-05-26 20:06 | CONS ---
Date/Time of Note Date/Time of Note DATE: 05/26/18 TIME: 20:04 Assessment/Plan Assessment/Plan Hospital Course ID PROGRESS NOTE CURRENT ABX: DAY # => OFF ABX s/p MERREM 24H INTERVAL SUMMARY * No fevers, VSS, NAD, no change from yesterday --- Resting without distress on supplemental O2 * 05/26/18 SWALLOW EVAL: 1. No evidence for aspiration.2. Please refer to swallowing therapist's recommendations for future feedings. MICRO * 05/17/18 (-)MRSA Nares PHYSICAL EXAMINATION: GENERAL: Afebrile, VSS, HEENT: AT, NC, anicteric NECK: Supple, trach CHEST: Equal chest rise bilaterally, without dyspnea on observation HEART: Pulse RRR ABDOMEN: Soft / NT EXTREMITIES: Warm, dry, SKIN: No rash, no diaphoresis ID ASSESSMENT 83 yo M admit with: 1. S/p symptomatic bradycardia 2. Acute on chronic respiratory failure, status post pneumonia 3. Status post Pseudomonas bacteremia, blood cultures since May 08 negative 4. Encephalopathy 5. Coronary artery disease with a history of CABG and valve replacement (-)MRSA Nares ABX ALLERGIES: NKDA INVASIVES: PI CURRENT ABX: DAY OFF ABX s/p MERREM ID RECOMMENDATIONS/PLAN: Continue current ABX . Result Diagram: 05/25/18 0528 05/25/18 0528 Results 24hrs Laboratory Tests Test 05/25/18 20:07 05/26/18 01:46 05/26/18 11:59 05/26/18 17:58 Bedside Glucose 199 103 108 116 Consultation Date/Type/Reason Admit Date/Time May 17, 2018 at 05:26 Initial Consult Date 05/17/18 Requesting Provider: MAIN LANG MD Exam/Review of Systems Vital Signs Vitals Vital Signs Date Temp Pulse Resp B/P (MAP) Pulse Ox O2 O2 Flow FiO2 Time Delivery Rate 05/26/18 77 16:45 05/26/18 3.0 15:58 05/26/18 98.0 16 113/78 100 15:44 (90) 05/26/18 Nasal 08:00 Cannula 05/24/18 30 20:52 Intake and Output 05/25/18 05/25/18 05/26/18 1515:00 23:00 07:00 IntakeIntake Total 400 ml 70 ml OutputOutput Total 1800 ml 2200 ml BalanceBalance -1400 ml -2130 ml Medications Medications Current Medications Acetaminophen (Tylenol Tab) 650 mg Q6H PRN PO MILD PAIN(1-3)OR ELEVATED TEMP; Start 05/17/18 at 06:30 Allopurinol (Zyloprim) 200 mg DAILY PO Last administered on 05/26/18at 10:34; Admin Dose 200 MG; Start 05/17/18 at 09:00 Atorvastatin Calcium (Lipitor) 10 mg HS PO Last administered on 05/25/18at 20:05; Admin Dose 10 MG; Start 05/17/18 at 21:00 Cholecalciferol (Vitamin D) 5,000 unit DAILY PO Last administered on 05/26/18at 10:35; Admin Dose 5,000 UNIT; Start 05/17/18 at 09:00 Levothyroxine Sodium (Synthroid) 137 mcg DAILY@06 PO Last administered on 05/26/18at 05:35; Admin Dose 137 MCG; Start 05/18/18 at 06:00 Ondansetron HCl (Zofran Inj) 4 mg Q4H PRN IV NAUSEA AND/OR VOMITING; Start 05/17/18 at 06:30 Pantoprazole (Protonix Iv) 40 mg DAILY@06 IV Last administered on 05/26/18at 05:35; Admin Dose 40 MG; Start 05/17/18 at 06:00 Tobramycin Sulfate (Tobrex 0.3% Oph Drop) 1 drop BID BOTH EYES Last administered on 05/26/18at 10:35; Admin Dose 1 DROP; Start 05/17/18 at 09:00 Miscellaneous Information 1 ea NOTE XX ; Start 05/17/18 at 07:00 Glucose (Glutose) 15 gm Q15M PRN PO DECREASED GLUCOSE; Start 05/17/18 at 07:00 Glucose (Glutose) 22.5 gm Q15M PRN PO DECREASED GLUCOSE; Start 05/17/18 at 07:00 Dextrose (D50w Syringe) 25 ml Q15M PRN IV DECREASED GLUCOSE; Start 05/17/18 at 07:00 Dextrose (D50w Syringe) 50 ml Q15M PRN IV DECREASED GLUCOSE; Start 05/17/18 at 07:00 Glucagon (Glucagen) 1 mg Q15M PRN IM DECREASED GLUCOSE; Start 05/17/18 at 07:0 0 Glucose (Glutose) 15 gm Q15M PRN BUCCAL DECREASED GLUCOSE; Start 05/17/18 at 07:00 Albuterol (Proventil 0.083% (Neb)) 2.5 mg Q6H RESP THERAPY PRN HHN WHEEZING Last administered on 05/24/18at 17:22; Admin Dose 2.5 MG; Start 05/19/18 at 09:00 Insulin Aspart (Novolog Insulin Pen) (Adult SC Insulin - Mild Algorithm)... AC MEALS AND BEDTIME SC Last administered on 05/25/18at 20:21; Admin Dose 1 UNIT; Start 05/21/18 at 17:30 Aspirin (Aspirin) 81 mg DAILY PO Last administered on 05/26/18at 10:35; Admin Dose 81 MG; Start 05/22/18 at 10:30 Haloperidol (Haldol) 1 mg Q4H PRN IV Agitation; Start 05/23/18 at 00:30 Haloperidol (Haldol) 2 mg PRN PRN IV Agitation; Start 05/23/18 at 01:00 Furosemide (Lasix) 20 mg BID DIURETICS IV Last administered on 05/26/18at 18:00; Admin Dose 20 MG; Start 05/24/18 at 18:00 RUSTY FERNANDEZ NP May 26, 2018 20:06
[2018-05-26] MEDS: ATORVASTATIN 10 MG TAB PO SCH (20:37)
[2018-05-27] VITALS (13 sets, daily range): BP systolic 100–128; BP diastolic 56–73; PULSE 59–82; RESP 16–18
--- NOTE | 2018-05-27 02:38 | NUR ---
Pt oxygen saturation=93%. Pt in room resting comfortably. Pt has no complaints at this time. Will continue to monitor.
[2018-05-27] MEDS: FUROSEMIDE 20 MG INJ IV SCH (06:21)
[2018-05-27] MEDS: PANTOPRAZOLE 40 MG INJ IV SCH (06:21)
[2018-05-27] MEDS: LEVOTHYROXINE 137 MCG TAB PO SCH (06:21)
--- NOTE | 2018-05-27 06:28 | NUR ---
Earmates on placed on between pt and nasal cannula. Oxygen saturation=96% on 3L. Pt QN=078. Feed pt a container of apple sauce as requested. Pt in room resting comfortably. Pt has no complaints at this time. Will continue to monitor. Addendum: 05/27/18 at 0647 by RAMÍREZ TORRES RN Fed*
[2018-05-27] MEDS: Insulin NOVOLOG SS MILD Algorithm (SS with meals and bedtime) SC SCH ×4 (06:48→21:00)
--- NOTE | 2018-05-27 07:10 | NUR ---
Pt CO2=44. Dr. Shawna santos. states that he will be around to further assess pt this am. No orders received at this time.
--- NOTE | 2018-05-27 07:50 | NUR ---
EOSS: Pt in room resting comfortably. Pt has no complaints at this time. Bedside shift report given to SOFIA Warner.
[2018-05-27] MEDS: CHOLECALCIFEROL 1,000 UNIT TAB PO SCH (08:46)
[2018-05-27] MEDS: ASPIRIN 81 MG TAB PO SCH (08:46)
[2018-05-27] MEDS: BALSAM PERU/CASTOR OIL 60 GM TUBE TOP SCH ×2 (08:46→21:07)
[2018-05-27] MEDS: TOBRAMYCIN 0.3% 5 ML OPH BOTH EYES SCH ×2 (08:46→21:07)
[2018-05-27] MEDS: ALLOPURINOL 100 MG TAB PO SCH (08:46)
--- NOTE | 2018-05-27 10:00 | NUR ---
SS NOTE: BIOETHICS CONSULT BIOETHICS CONSULT HELD TO DISCUSS PT'S PLAN OF CARE. DR. LANG UPDATED THE COMMITTEE ON PT'S CONDITION. PT'S FRIEND, ELISA SORIANO ALSO PARTICIPATED AT THE MEETING. ELISA WAS ABLE TO PROVIDE PT'S HX. SHE WAS ABLE TO ANSWER THE COMMITTEE'S QUESTIONS RE: PT'S WISHES AND HIS LEVEL OF FUNCTIONING PRIOR TO HIS HOSPITALIZATION. THE COMMITTEE RECOMMENDED FOR MD TO TRY TO DISCUSS WITH PT ABOUT HIS WISHES IF PT IS ALERT AND ORIENTED AND ABLE TO MAKE DECISIONS. THE COMMITTEE ALSO RECOMMENDED THAT IF PT IS NOT ABLE TO MAKE HIS OWN DECISIONS THEN TO PROCEED WITH ELISA PT'S DECISION MAKER SHE KNOWS PT'S CONDITION AND HIS WISHES AND SHE HAS PT'S BEST INTEREST IN MIND. DR. LANG AND THIS SW MET WITH PT AND ELISA AT PT'S BEDSIDE AFTER THE MEETING. PT A/A/O X4. ABLE TO STATE TODAY'S DATE AND HIS RELATIONSHIP WITH ELISA. PT ABLE TO ASK APPROPRIATE QUESTIONS AND EXPRESS CONCERN APPROPRIATELY. DR. LANG UPDATE PT ON HIS CONDITION. DISCUSSED PT'S WISHES RE: HIS CODE STATUS. PT STATED THAT HE DOES NOT WANT RESUSCITATION AND NO INTUBATION. HE WANTS TO CONTINUE WITH TREATMENT AT THIS TIME. STATED THAT HE WOULD AGREE WITH TEMPORARY FEEDING TUBE BUT NOT IF IT WILL NEED TO BE THERE PERMANENTLY. PT STATED THAT IN CASE HE IS NOT ABLE TO MAKE HIS OWN DECISIONS HE WANTS ELISA TO MAKE DECISIONS FOR HIM. JOKED ABOUT WHAT HE WOULD DO IF SOMETHING HAPPENS TO ELIAS BEFORE SOMETHING HAPPENS TO HIM. PT AND MD COMPLETED THE POLST FORM. COPY PLACED IN PT'S CHART. KARLY GAVE THE ORIGINAL FORM TO PT'S FRIEND ELISA FOR SAFE KEEPING PER PT'S REQUEST. KARLY ALSO PROVIDED TERRENCE [employer]CD FORM AND REQUESTED FOR PT AND ELISA TO COMPLETE IT. ELISA REPORTED THAT SHE WOULD BE ABLE TO HAVE A MOBILE NOTARY TO COME AND NOTARIZE THE FORM FOR PT. NO OTHER ISSUES PRESENT AT THIS TIME. KARLY UPDATED RNLYNDA. DR. LANG WILL PLACE ORDERS FOR DNR. SW WILL REMAIN AVAILABLE NEEDED.
--- NOTE | 2018-05-27 11:13 | CONS ---
Date/Time of Note Date/Time of Note DATE: 05/27/18 TIME: 11:11 Assessment/Plan Assessment/Plan Hospital Course ID PROGRESS NOTE CURRENT ABX: DAY # => OFF ABX s/p MERREM 24H INTERVAL SUMMARY * Oxygen saturation=96% on 3L. No fevers, VSS, NAD, without dyspnea * 05/26/18 SWALLOW EVAL: 1. No evidence for aspiration.2. Please refer to swallowing therapist's recommendations for future feedings. MICRO * 05/17/18 (-)MRSA Nares PHYSICAL EXAMINATION: GENERAL: Afebrile, VSS, HEENT: AT, NC, anicteric NECK: Supple, trach CHEST: Equal chest rise bilaterally, without dyspnea on observation HEART: Pulse RRR ABDOMEN: Soft / NT EXTREMITIES: Warm, dry, SKIN: No rash, no diaphoresis ID ASSESSMENT 83 yo M admit with: 1. S/p symptomatic bradycardia 2. Acute on chronic respiratory failure, status post pneumonia 3. Status post Pseudomonas bacteremia, blood cultures since May 08 negative 4. Encephalopathy 5. Coronary artery disease with a history of CABG and valve replacement (-)MRSA Nares ABX ALLERGIES: NKDA INVASIVES: PI CURRENT ABX: DAY OFF ABX s/p MERREM ID RECOMMENDATIONS/PLAN: Continue to monitor OFF ABX Follow speech tx recommendations for aspiration precautions . Result Diagram: 05/27/18 0458 05/27/18 0458 Results 24hrs Laboratory Tests Test 05/26/18 11:59 05/26/18 17:58 05/26/18 20:31 05/27/18 04:58 Bedside Glucose 108 116 155 White Blood 5.8 Count Red Blood Count 2.97 L Hemoglobin 9.9 L Hematocrit 31.7 L Mean Corpuscular 106.7 H Volume Mean Corpuscular 33.3 H Hemoglobin Mean Corpuscular 31.2 L Hemoglobin Sharita nt Red Cell 20.4 H Distribution Width Platelet Count 130 L Mean Platelet 11.9 H Volume Immature 1.900 H Granulocytes % Neutrophils % 63.4 Lymphocytes % 16.1 Monocytes % 11.4 H Eosinophils % 6.2 Basophils % 1.0 Nucleated Red 0.0 Blood Cells % Immature 0.110 H Granulocytes # Neutrophils # 3.7 Lymphocytes # 0.9 Monocytes # 0.7 Eosinophils # 0.4 Basophils # 0.1 Nucleated Red 0.0 Blood Cells # Sodium Level 144 Potassium Level 3.6 Chloride Level 94 L Carbon Dioxide 44 *H Level Anion Gap 6 Blood Urea 30 H Nitrogen Creatinine 1.33 H Est Glomerular Filtrat Rate mL/min Glucose Level 111 Calcium Level 9.5 Test 05/27/18 06:37 Bedside Glucose 108 Consultation Date/Type/Reason Admit Date/Time May 17, 2018 at 05:26 Initial Consult Date 05/17/18 Requesting Provider: MAIN LANG MD Exam/Review of Systems Vital Signs Vitals Vital Signs Date Temp Pulse Resp B/P (MAP) Pulse Ox O2 O2 Flow FiO2 Time Delivery Rate 05/27/18 62 08:00 05/27/18 98.9 16 128/69 99 07:09 (88) 05/27/18 3.0 05:52 05/27/18 30 02:23 05/26/18 Nasal 08:00 Cannula Intake and Output 05/26/18 05/26/18 05/27/18 1515:00 23:00 07:00 IntakeIntake Total 800 ml 420 ml OutputOutput Total 1700 ml 1300 ml BalanceBalance -900 ml -880 ml Medications Medications Current Medications Acetaminophen (Tylenol Tab) 650 mg Q6H PRN PO MILD PAIN(1-3)OR ELEVATED TEMP; Start 05/17/18 at 06:30 Allopurinol (Zyloprim) 200 mg DAILY PO Last administered on 05/27/18at 08:46; Admin Dose 200 MG; Start 05/17/18 at 09:00 Atorvastatin Calcium (Lipitor) 10 mg HS PO Last administered on 05/26/18at 20:37; Admin Dose 10 MG; Start 05/17/18 at 21:00 Cholecalciferol (Vitamin D) 5,000 unit DAILY PO Last administered on 05/27/18at 08:46; Admin Dose 5,000 UNIT; Start 05/17/18 at 09:00 Levothyroxine Sodium (Synthroid) 137 mcg DAILY@06 PO Last administered on 05/27/18at 06:21; Admin Dose 137 MCG; Start 05/18/18 at 06:00 Ondansetron HCl (Zofran Inj) 4 mg Q4H PRN IV NAUSEA AND/OR VOMITING; Start 05/17/18 at 06:30 Pantoprazole (Protonix Iv) 40 mg DAILY@06 IV Last administered on 05/27/18at 06:21; Admin Dose 40 MG; Start 05/17/18 at 06:00 Tobramycin Sulfate (Tobrex 0.3% Oph Drop) 1 drop BID BOTH EYES Last administered on 05/27/18at 08:46; Admin Dose 1 DROP; Start 05/17/18 at 09:00 Miscellaneous Information 1 ea NOTE XX ; Start 05/17/18 at 07:00 Glucose (Glutose) 15 gm Q15M PRN PO DECREASED GLUCOSE; Start 05/17/18 at 07:00 Glucose (Glutose) 22.5 gm Q15M PRN PO DECREASED GLUCOSE; Start 05/17/18 at 07:00 Dextrose (D50w Syringe) 25 ml Q15M PRN IV DECREASED GLUCOSE; Start 05/17/18 at 07:00 Dextrose (D50w Syringe) 50 ml Q15M PRN IV DECREASED GLUCOSE; Start 05/17/18 at 07:00 Glucagon (Glucagen) 1 mg Q15M PRN IM DECREASED GLUCOSE; Start 05/17/18 at 07:00 Glucose (Glutose) 15 gm Q15M PRN BUCCAL DECREASED GLUCOSE; Start 05/17/18 at 07:00 Albuterol (Proventil 0.083% (Neb)) 2.5 mg Q6H RESP THERAPY PRN HHN WHEEZING Last administered on 05/24/18at 17:22; Admin Dose 2.5 MG; Start 05/19/18 at 09:00 Insulin Aspart (Novolog Insulin Pen) (Adult SC Insulin - Mild Algorithm)... AC MEALS AND BEDTIME SC Last administered on 05/25/18at 20:21; Admin Dose 1 UNIT; Start 05/21/18 at 17:30 Aspirin (Aspirin) 81 mg DAILY PO Last administered on 05/27/18at 08:46; Admin Dose 81 MG; Start 05/22/18 at 10:30 Haloperidol (Haldol) 1 mg Q4H PRN IV Agitation; Start 05/23/18 at 00:30 Haloperidol (Haldol) 2 mg PRN PRN IV Agitation; Start 05/23/18 at 01:00 Furosemide (Lasix) 20 mg DAILY PO ; Start 05/28/18 at 07:00 RUSTY FERNANDEZ NP May 27, 2018 11:13
--- NOTE | 2018-05-27 11:43 | CONS ---
Date/Time of Note Date/Time of Note DATE: 05/27/18 TIME: 11:43 Consult Date/Type/Reason Admit Date/Time May 17, 2018 at 05:26 Initial Consult Date 05/17/18 Type of Consultation: Pulm Requesting Provider: MAIN LANG MD Subjective Patient remained stable this morning. No respiratory distress. Objective Vital Signs Date Temp Pulse Resp B/P (MAP) Pulse Ox O2 O2 Flow FiO2 Time Delivery Rate 05/27/18 97.6 72 16 126/73 100 11:18 (90) 05/27/18 3.0 05:52 05/27/18 30 02:23 05/26/18 Nasal 08:00 Cannula Intake and Output 05/26/18 05/26/18 05/27/18 1515:00 23:00 07:00 IntakeIntake Total 800 ml 420 ml OutputOutput Total 1700 ml 1300 ml BalanceBalance -900 ml -880 ml Exam GENERAL: Elderly appearing gentleman comfortable at rest no acute distress VITAL SIGNS: per chart NECK: Supple. No JVD or lymphadenopathy. CARDIAC EXAM: S1, S2. No added sounds or murmurs. CHEST: clear bilaterally, No added sounds, rales or wheezes ABDOMEN: Soft, nontender. No guarding or rebound. EXTREMITIES: No cyanosis, clubbing or edema. NEUROLOGIC: Generalized weakness. No focal deficits. Results/Medications Result Diagram: 05/27/18 0458 05/27/18 0458 Results 24 hrs Laboratory Tests Test 05/26/18 11:59 05/26/18 17:58 05/26/18 20:31 05/27/18 04:58 Bedside Glucose 108 116 155 White Blood 5.8 Count Red Blood Count 2.97 L Hemoglobin 9.9 L Hematocrit 31.7 L Mean Corpuscular 106.7 H Volume Mean Corpuscular 33.3 H Hemoglobin Mean Corpuscular 31.2 L Hemoglobin Sharita nt Red Cell 20.4 H Distribution Width Platelet Count 130 L Mean Platelet 11.9 H Volume Immature 1.900 H Granulocytes % Neutrophils % 63.4 Lymphocytes % 16.1 Monocytes % 11.4 H Eosinophils % 6.2 Basophils % 1.0 Nucleated Red 0.0 Blood Cells % Immature 0.110 H Granulocytes # Neutrophils # 3.7 Lymphocytes # 0.9 Monocytes # 0.7 Eosinophils # 0.4 Basophils # 0.1 Nucleated Red 0.0 Blood Cells # Sodium Level 144 Potassium Level 3.6 Chloride Level 94 L Carbon Dioxide 44 *H Level Anion Gap 6 Blood Urea 30 H Nitrogen Creatinine 1.33 H Est Glomerular Filtrat Rate mL/min Glucose Level 111 Calcium Level 9.5 Test 05/27/18 06:37 Bedside Glucose 108 Medications Current Medications Acetaminophen (Tylenol Tab) 650 mg Q6H PRN PO MILD PAIN(1-3)OR ELEVATED TEMP; Start 05/17/18 at 06:30 Allopurinol (Zyloprim) 200 mg DAILY PO Last administered on 05/27/18at 08:46; Admin Dose 200 MG; Start 05/17/18 at 09:00 Atorvastatin Calcium (Lipitor) 10 mg HS PO Last administered on 05/26/18at 20:37; Admin Dose 10 MG; Start 05/17/18 at 21:00 Cholecalciferol (Vitamin D) 5,000 unit DAILY PO Last administered on 05/27/18at 08:46; Admin Dose 5,000 UNIT; Start 05/17/18 at 09:00 Levothyroxine Sodium (Synthroid) 137 mcg DAILY@06 PO Last administered on 05/27/18at 06:21; Admin Dose 137 MCG; Start 05/18/18 at 06:00 Ondansetron HCl (Zofran Inj) 4 mg Q4H PRN IV NAUSEA AND/OR VOMITING; Start 05/17/18 at 06:30 Pantoprazole (Protonix Iv) 40 mg DAILY@06 IV Last administered on 05/27/18at 06:21; Admin Dose 40 MG; Start 05/17/18 at 06:00 Tobramycin Sulfate (Tobrex 0.3% Oph Drop) 1 drop BID BOTH EYES Last admin istered on 05/27/18at 08:46; Admin Dose 1 DROP; Start 05/17/18 at 09:00 Miscellaneous Information 1 ea NOTE XX ; Start 05/17/18 at 07:00 Glucose (Glutose) 15 gm Q15M PRN PO DECREASED GLUCOSE; Start 05/17/18 at 07:00 Glucose (Glutose) 22.5 gm Q15M PRN PO DECREASED GLUCOSE; Start 05/17/18 at 07: 00 Dextrose (D50w Syringe) 25 ml Q15M PRN IV DECREASED GLUCOSE; Start 05/17/18 at 07:00 Dextrose (D50w Syringe) 50 ml Q15M PRN IV DECREASED GLUCOSE; Start 05/17/18 at 07:00 Glucagon (Glucagen) 1 mg Q15M PRN IM DECREASED GLUCOSE; Start 05/17/18 at 07:00 Glucose (Glutose) 15 gm Q15M PRN BUCCAL DECREASED GLUCOSE; Start 05/17/18 at 07:00 Albuterol (Proventil 0.083% (Neb)) 2.5 mg Q6H RESP THERAPY PRN HHN WHEEZING Last administered on 05/24/18at 17:22; Admin Dose 2.5 MG; Start 05/19/18 at 09 :00 Insulin Aspart (Novolog Insulin Pen) (Adult SC Insulin - Mild Algorithm)... AC MEALS AND BEDTIME SC Last administered on 05/25/18at 20:21; Admin Dose 1 UNIT; Start 05/21/18 at 17:30 Aspirin (Aspirin) 81 mg DAILY PO Last administered on 05/27/18at 08:46; Admin Dose 81 MG; Start 05/22/18 at 10:30 Haloperidol (Haldol) 1 mg Q4H PRN IV Agitation; Start 05/23/18 at 00:30 Haloperidol (Haldol) 2 mg PRN PRN IV Agitation; Start 05/23/18 at 01:00 Furosemide (Lasix) 20 mg DAILY PO ; Start 05/28/18 at 07:00 Assessment/Plan Chief Complaint/Hosp Course Assessment 1. Acute hypoxemic respiratory failure 2. History of underlying interstitial lung disease with chronic hypercapnia 3. History of coronary artery disease with coronary artery bypass graft surgery 4. Status post atrial fibrillation rapid ventricular rate 5. Resolving encephalopathy toxic metabolic Plan 1. Decrease O2 as tolerated 2. PRN bilevel ventilation 3. Continue to continue cardiac recommendations 4. DVT GI prophylaxis Consider [facility] vs SNF. ? DC planning CHUCHO MALONEY MD, [facility] May 27, 2018 11:43
--- NOTE | 2018-05-27 13:11 | PN ---
DATE: 05/27/2018 SUBJECTIVE: The patient seen at bedside; also, patient's longtime friend who knows the patient for m any, many years. We discussed briefly the patient's advanced directive. The patient appears to be m ore alert today and able to communicate more clearly than in the past month. There is a plan for an ethics committee to convene early this morning to discuss overall the patient's condition and advance directive. The patient still remains somewhat confused but overall was not completely against recei ving some aggressive treatment, but it appears that prolonged treatment for being on life support for prolonged period of time may not be what he wants. PHYSICAL EXAMINATION: VITAL SIGNS: Temperature 98.9, pulse 62, respirations 16, blood pressure 128/69, saturation 93% FIO2 on 30% FIO2. GENERAL: Patient is currently receiving oxygen via nasal cannula. In general, patient is alert, lyi ng quite flat comfortably. CARDIOVASCULAR: S1 and S2 irregular. LUNGS: Decreased but clear bilaterally. ABDOMEN: Soft. EXTREMITIES: No clubbing, cyanosis, or edema. LABORATORY DATA: White count 5.8, hemoglobin 9.9, hematocrit 32, platelet count of 132/63, lymphocyt es 16%. Chemistry: Sodium 144, potassium 3.694, bicarbonate is 44, BUN 30, creatinine 1.33, glucose of 111. Last glucose was 108. No blood gas. MRSA screening is negative. A modified barium swallo w done on 05/26/2018 shows no evidence of aspiration. Please refer to the speech therapy's recommen dation. Speech therapy recommendation was to continue dysphagia therapy. Continue NTL bicarbonate a nd advance to fine chopped texture diet with use of double dry swallow and liquids wash. No straw at this time. Consider followup with GI regarding mild bolus . CURRENT MEDICATIONS: 1. Lasix 20 IV b.i.d. He has been on it since the , will discontinue that. 2. Haldol 2 mg IV p.r.n. 3. Aspirin 81 mg daily. 4. Albuterol as directed. 5. Synthroid 137 daily. 6. Lipitor 10 mg at bedtime. 7. Allopurinol 20 mg daily. 8. Vitamin D 5000 daily. 9. TobraDex b.i.d. to the eyes b.i.d. 10. Tylenol. 11. Zofran. 12. Protonix 40 IV daily. ASSESSMENT AND PLAN: This is an 83-year-old male with history of vascular dementia, debili tated, atrial fibrillation, CHF, hypertension, hypothyroidism, diabetes mellitus, valvular heart dise ase who presents with acute hypoxemic hypercapnic respiratory failure, recently treated for pseudomon as aeruginosa urinary tract infection and bacteremia. The patient has been encephalopathic due to li petty hypercapnia and briefly was in the ICU for marked bradycardia, now off digoxin and beta blockers . 1. Respiratory, clinically much improved with diuretic therapy, p.r.n. BiPAP and nocturnal BiPAP. A ppreciate pulmonary input. 2. Cardiovascular. Stable. No significant bradycardia once Digoxin and beta blockers were ordered. Cardiology is following. 3. Infectious disease. Currently off antibiotics. 4. Physical therapy, possible out of bed to chair. 5. Dysphagia. May advance diet to chopped diet; dietary and speech therapy to follow. 6. Hypothyroidism. Continue Synthroid. 7. Diabetes mellitus. Accu-Chek in the low 100s. Observe. 8. Left distal testicular mass. Supportive care for now. 9. Continue Protonix for GI prophylaxis. 10. Anemia. No need for transfusion. 11. Chronic kidney disease, mildly worse kidney function due to diuretics. Again, hold diuretics as the patient appears to be euvolemic. Clinically much improved. The patient remains FULL CODE. Ethics committee and discussion with close friend will convene today to discuss further plan of care. We will follow. Dictated By: MAIN BARBOZA/MAMI Conf#: [id number] DID#: [id number] CC: MAIN LANG MD;*End*
--- NOTE | 2018-05-27 13:18 | NUR ---
ST NOTE:pt seen for f/up at lunch; incorrect tray brought puree;nctr diet is in computer mech soft/chopped;nectar; ok thin small sip spoon for oral grat only as long as good oral care and hygiene performed; pt need cues to alt. food/liquids; tray brought up juice was overthickened and some items not thick mostly thin; pt coughing on those; made new liquid for pt; please do not thicken the whole pitcher of water as the thickener will thicken as it sits or sink to the bottom. high asp risk; monitor closely; discussed with rn; pt very pleasant and using strategy of effortful swallow with min cues
--- NOTE | 2018-05-27 13:23 | PN ---
DATE: 05/27/2018 ADDENDUM: Ethics commit convened this morning as well as Tessa was present. It was felt that Tessa would be a good person that in case the patient cannot make any decision, we can ask her and she can be [facility] designated decision maker in case the patient cannot make any decisions. Upon evaluating the patient's case with the case management social worker, Saritha, and the patient's friend, Enrique [place] agreed that in case he cannot make any decision, that Tessa will be the one who will make [facility] decisions for him. We did feel and asking questions and he agreed not to do chest compress ions or intubation. Okay to use BiPAP or other forms of respiratory assistance and he would want danilo rt term feeding in case he cannot swallow. The patient is made DNR/DNI, for medical management inclu ding antibiotics etc. Please see ethics committee note. Overall, the patient is doing better and no rich speech therapist recommendation as diet will be advanced to finely chopped soft food with specifi c instructions how to administer medications, etc. DISPOSITION: Overall, the patient is improving. We will follow. Dictated By: MAIN BARBOZA/MAMI Conf#: [id number] DID#: [id number]
--- NOTE | 2018-05-27 14:03 | CONS ---
Date/Time of Note Date/Time of Note DATE: 05/27/18 TIME: 14:01 Consult Date/Type/Reason Admit Date/Time May 17, 2018 at 05:26 Initial Consult Date 05/17/18 Type of Consultation: CV Requesting Provider: MAIN LANG MD Subjective cardiology follow up progress note S: Discussed with the staff on telemetry was reviewed. Patient remains in atrial fibrillation with controlled HR. no long pauses is seen overnight . Heart rate has been stable no chest pain or pressure or syncope reported b PT IS off BIPAP NOW HE STILL has cough Objective: General: Elderly looking gentleman. On O2 HEENT: NC/AT. Eyes are closed NECK:. no stridor. CV: Irregularly irregular systolic murmur; no gallop or rubs. PULM: no wheezing + rhonchi. GI: SOFT, NT, ND, no rebound or guarding Extremity: +B/L LE edema. no clubbing. neuro: Drowsy/lethargic Psych: calm rectal: deferred : normal Derm: Multiple diffuse ecchymosis Echocardiogram done 05/14/2018 which was personally reviewed shows: There is severe enlargement of left atrium. There is mild enlargement of right atrium. Lower limits of normal systolic function. Normal left ventricular cavity size. Mild concentric left ventricular hypertrophy. Ejection fraction is visually estimated at 50-55 %. Moderate mitral leaflet calcification. Severe mitral annular calcification. Trace mitral regurgitation. Mild to moderate mitral stenosis. Mitral valve Max Velocity 2.40 m/sec. MaxPG 22.00 mmHg. MeanPG 7.00 mmHg. Aortic valve not well visualized. Aortic Valve Bio Prosthesis. Aortic valve Max velocity 2.55 m/sec. Max PG 26.00 mmHg. Mean PG 13.00 mmHg. Mild aortic valve regurgitation. Normal appearance of the tricuspid valve. Estimated peak PA systolic pressure 78 mmHg. There is moderate tricuspid regurgitation. Inferior vena cava without respiratory collapse, however, patient on ventilator. Normal pericardium with no significant pericardial effusion. Objective Vital Signs Date Temp Pulse Resp B/P (MAP) Pulse Ox O2 O2 Flow FiO2 Time Delivery Rate 05/27/18 63 12:00 05/27/18 97.6 16 126/73 100 11:18 (90) 05/27/18 3.0 05:52 05/27/18 30 02:23 05/26/18 Nasal 08:00 Cannula Intake and Output 05/26/18 05/26/18 05/27/18 1515:00 23:00 07:00 IntakeIntake Total 800 ml 420 ml OutputOutput Total 1700 ml 1300 ml BalanceBalance -900 ml -880 ml Results/Medications Result Diagram: 05/27/18 0458 05/27/18 0458 Results 24 hrs Laboratory Tests Test 05/26/18 17:58 05/26/18 20:31 05/27/18 04:58 05/27/18 06:37 Bedside Glucose 116 155 108 White Blood 5.8 Count Red Blood Count 2.97 L Hemoglobin 9.9 L Hematocrit 31.7 L Mean Corpuscular 106.7 H Volume Mean Corpuscular 33.3 H Hemoglobin Mean Corpuscular 31.2 L Hemoglobin Sharita nt Red Cell 20.4 H Distribution Width Platelet Count 130 L Mean Platelet 11.9 H Volume Immature 1.900 H Granulocytes % Neutrophils % 63.4 Lymphocytes % 16.1 Monocytes % 11.4 H Eosinophils % 6.2 Basophils % 1.0 Nucleated Red 0.0 Blood Cells % Immature 0.110 H Granulocytes # Neutrophils # 3.7 Lymphocytes # 0.9 Monocytes # 0.7 Eosinophils # 0.4 Basophils # 0.1 Nucleated Red 0.0 Blood Cells # Sodium Level 144 Potassium Level 3.6 Chloride Level 94 L Carbon Dioxide 44 *H Level Anion Gap 6 Blood Urea 30 H Nitrogen Creatinine 1.33 H Est Glomerular Filtrat Rate mL/min Glucose Level 111 Calcium Level 9.5 Test 05/27/18 11:52 Bedside Glucose 142 Medications Current Medications Acetaminophen (Tylenol Tab) 650 mg Q6H PRN PO MILD PAIN(1-3)OR ELEVATED TEMP; Start 05/17/18 at 06:30 Allopurinol (Zyloprim) 200 mg DAILY PO Last administered on 05/27/18at 08:46; Admin Dose 200 MG; Start 05/17/18 at 09:00 Atorvastatin Calcium (Lipitor) 10 mg HS PO Last administered on 05/26/18at 20:37; Admin Dose 10 MG; Start 05/17/18 at 21:00 Cholecalciferol (Vitamin D) 5,000 unit DAILY PO Last administered on 05/27/18at 08:46; Admin Dose 5,000 UNIT; Start 05/17/18 at 09:00 Levothyroxine Sodium (Synthroid) 137 mcg DAILY@06 PO Last administered on 05/27/18at 06:21; Admin Dose 137 MCG; Start 05/18/18 at 06:00 Ondansetron HCl (Zofran Inj) 4 mg Q4H PRN IV NAUSEA AND/OR VOMITING; Start 05/17/18 at 06:30 Pantoprazole (Protonix Iv) 40 mg DAILY@06 IV Last administered on 05/27/18at 06:21; Admin Dose 40 MG; Start 05/17/18 at 06:00 Tobramycin Sulfate (Tobrex 0.3% Oph Drop) 1 drop BID BOTH EYES Last administered on 05/27/18at 08:46; Admin Dose 1 DROP; Start 05/17/18 at 09:00 Miscellaneous Information 1 ea NOTE XX ; Start 05/17/18 at 07:00 Glucose (Glutose) 15 gm Q15M PRN PO DECREASED GLUCOSE; Start 05/17/18 at 07:00 Glucose (Glutose) 22.5 gm Q15M PRN PO DECREASED GLUCOSE; Start 05/17/18 at 07:00 Dextrose (D50w Syringe) 25 ml Q15M PRN IV DECREASED GLUCOSE; Start 05/17/18 at 07:00 Dextrose (D50w Syringe) 50 ml Q15M PRN IV DECREASED GLUCOSE; Start 05/17/18 at 07:00 Glucagon (Glucagen) 1 mg Q15M PRN IM DECREASED GLUCOSE; Start 05/17/18 at 07 :00 Glucose (Glutose) 15 gm Q15M PRN BUCCAL DECREASED GLUCOSE; Start 05/17/18 at 07:00 Albuterol (Proventil 0.083% (Neb)) 2.5 mg Q6H RESP THERAPY PRN HHN WHEEZING Last administered on 05/24/18at 17:22; Admin Dose 2.5 MG; Start 05/19/18 at 09:00 Insulin Aspart (Novolog Insulin Pen) (Adult SC Insulin - Mild Algorithm)... AC MEALS AND BEDTIME SC Last administered on 05/27/18at 11:56; Admin Dose 1 UNIT; Start 05/21/18 at 17:30 Aspirin (Aspirin) 81 mg DAILY PO Last administered on 05/27/18at 08:46; Admin Dose 81 MG; Start 05/22/18 at 10:30 Haloperidol (Haldol) 1 mg Q4H PRN IV Agitation; Start 05/23/18 at 00:30 Haloperidol (Haldol) 2 mg PRN PRN IV Agitation; Start 05/23/18 at 01:00 Furosemide (Lasix) 20 mg DAILY PO ; Start 05/28/18 at 07:00 Assessment/Plan Chief Complaint/Hosp Course 1. Atrial fibrillation with slow ventricular response and multiple pauses and with 1 long pause of more than 20 seconds which happened during the NG tube placement improved HR now 2. Hypercapnic respiratory failure 3. Status post Pseudomonas pneumonia and bacteremia 4. Encephalopathy 5. History of hypertension 6. History of possible coronary bypass graft 7. 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 Anemia 9. CHF pulm HTN, 10. pleural effusion Recommendations: Antibiotic management as per ID recommendation Supportive care and respiratory care as per pulmonary. We will closely monitor on telemetry. Digoxin and Coreg has been discontinued. diuresis as per pulm We will continue to monitor him closely. CODE STATUS is DNR now given his recent Pseudomonas bacteremia I am very concerned about placing pacemaker in him. Heart rate is currently responding off of AV gianluca blocking agents cont tele Thank you for his referral. DR EWING will be covering me as needed tomorrow SAMARIA AGUILAR MD [facility] SAMARIA AGUILAR MD May 27, 2018 14:03
--- NOTE | 2018-05-27 18:38 | NUR ---
EOSS: Pt laying comfortably in bed, VS stable, denies pain. Pt was alert today and was very much cognizant and coherent. No acute events during shift. Meeting w/bioethics committee done today, and initiated DNR code status. Pt tolerated diet well. Kept pt clean, dry, and repositioned throughout the shift. All needs attended. Will endorse to oncoming shift accordingly.
[2018-05-27] MEDS: ATORVASTATIN 10 MG TAB PO SCH (21:07)
[2018-05-28] VITALS (13 sets, daily range): BP systolic 110–127; BP diastolic 58–69; PULSE 65–97; RESP 17–20
[2018-05-28] MEDS: LEVOTHYROXINE 137 MCG TAB PO SCH (06:21)
[2018-05-28] MEDS: PANTOPRAZOLE 40 MG INJ IV SCH (06:22)
[2018-05-28] MEDS: FUROSEMIDE 20 MG TAB PO SCH (06:22)
[2018-05-28] MEDS: Insulin NOVOLOG SS MILD Algorithm (SS with meals and bedtime) SC SCH ×4 (06:32→21:00)
[2018-05-28] MEDS: CHOLECALCIFEROL 1,000 UNIT TAB PO SCH (08:42)
[2018-05-28] MEDS: TOBRAMYCIN 0.3% 5 ML OPH BOTH EYES SCH ×2 (08:42→21:30)
[2018-05-28] MEDS: BALSAM PERU/CASTOR OIL 60 GM TUBE TOP SCH ×2 (08:43→21:31)
[2018-05-28] MEDS: ASPIRIN 81 MG TAB PO SCH (08:43)
[2018-05-28] MEDS: ALLOPURINOL 100 MG TAB PO SCH (08:43)
--- NOTE | 2018-05-28 10:54 | CONS ---
Date/Time of Note Date/Time of Note DATE: 05/28/18 TIME: 10:53 Consult Date/Type/Reason Admit Date/Time May 17, 2018 at 05:26 Initial Consult Date 05/17/18 Type of Consultation: Pulm Requesting Provider: MAIN LANG MD Subjective No significant changes Remains stable. Objective Vital Signs Date Temp Pulse Resp B/P (MAP) Pulse Ox O2 O2 Flow FiO2 Time Delivery Rate 05/28/18 98.3 65 20 110/69 99 08:05 (83) 05/28/18 Nasal 3.0 08:00 Cannula 05/27/18 30 02:23 Intake and Output 05/27/18 05/27/18 05/28/18 1515:00 23:00 07:00 IntakeIntake Total 850 ml 650 ml OutputOutput Total 1300 ml 1100 ml BalanceBalance -450 ml -450 ml Exam GENERAL: Elderly appearing gentleman comfortable at rest no acute distress VITAL SIGNS: per chart NECK: Supple. No JVD or lymphadenopathy. CARDIAC EXAM: S1, S2. No added sounds or murmurs. CHEST: clear bilaterally, No added sounds, rales or wheezes ABDOMEN: Soft, nontender. No guarding or rebound. EXTREMITIES: No cyanosis, clubbing or edema. NEUROLOGIC: Generalized weakness. No focal deficits. Results/Medications Result Diagram: 05/27/18 0458 05/27/18 0458 Results 24 hrs Laboratory Tests Test 05/27/18 11:52 05/27/18 17:35 05/27/18 20:34 05/28/18 06:27 Bedside Glucose 142 105 139 107 Medications Current Medications Acetaminophen (Tylenol Tab) 650 mg Q6H PRN PO MILD PAIN(1-3)OR ELEVATED TEMP; Start 05/17/18 at 06:30 Allopurinol (Zyloprim) 200 mg DAILY PO Last administered on 05/28/18at 08:43; Admin Dose 200 MG; Start 05/17/18 at 09:00 Atorvastatin Calcium (Lipitor) 10 mg HS PO Last administered on 05/27/18at 21:07; Admin Dose 10 MG; Start 05/17/18 at 21:00 Cholecalciferol (Vitamin D) 5,000 unit DAILY PO Last administered on 05/28/18at 08:42; Admin Dose 5,000 UNIT; Start 05/17/18 at 09:00 Levothyroxine Sodium (Synthroid) 137 mcg DAILY@06 PO Last administered on 05/28/18 06:21; Admin Dose 137 MCG; Start 05/18/18 at 06:00 Ondansetron HCl (Zofran Inj) 4 mg Q4H PRN IV NAUSEA AND/OR VOMITING; Start 05/17/18 at 06:30 Pantoprazole (Protonix Iv) 40 mg DAILY@06 IV Last administered on 05/28/18 06:22; Admin Dose 40 MG; Start 05/17/18 at 06:00 Tobramycin Sulfate (Tobrex 0.3% Oph Drop) 1 drop BID BOTH EYES Last administered on 05/28/18 08:42; Admin Dose 1 DROP; Start 05/17/18 at 09:00 Miscellaneous Information 1 ea NOTE XX ; Start 05/17/18 at 07:00 Glucose (Glutose) 15 gm Q15M PRN PO DECREASED GLUCOSE; Start 05/17/18 at 07:00 Glucose (Glutose) 22.5 gm Q15M PRN PO DECREASED GLUCOSE; Start 05/17/18 at 07:00 Dextrose (D50w Syringe) 25 ml Q15M PRN IV DECREASED GLUCOSE; Start 05/17/18 at 07:00 Dextrose (D50w Syringe) 50 ml Q15M PRN IV DECREASED GLUCOSE; Start 05/17/18 at 07:00 Glucagon (Glucagen) 1 mg Q15M PRN IM DECREASED GLUCOSE; Start 05/17/18 at 07:00 Glucose (Glutose) 15 gm Q15M PRN BUCCAL DECREASED GLUCOSE; Start 05/17/18 at 07:00 Albuterol (Proventil 0.083% (Neb)) 2.5 mg Q6H RESP THERAPY PRN HHN WHEEZING Last administered on 05/24/18at 17:22; Admin Dose 2.5 MG; Start 05/19/18 at 09:00 Insulin Aspart (Novolog Insulin Pen) (Adult SC Insulin - Mild Algorithm)... AC MEALS AND BEDTIME SC Last administered on 05/27/18at 11:56; Admin Dose 1 UNIT; Start 05/21/18 at 17:30 Aspirin (Aspirin) 81 mg DAILY PO Last administered on 05/28/18 08:43; Admin Dose 81 MG; Start 05/22/18 at 10:30 Haloperidol (Haldol) 1 mg Q4H PRN IV Agitation; Start 05/23/18 at 00:30 Haloperidol (Haldol) 2 mg PRN PRN IV Agitation; Start 05/23/18 at 01:00 Furosemide (Lasix) 20 mg DAILY PO Last administered on 05/28/18at 06:22; Admin Dose 20 MG; Start 05/28/18 at 07:00 Assessment/Plan Chief Complaint/Hosp Course Assessment 1. Acute hypoxemic respiratory failure 2. History of underlying interstitial lung disease with chronic hypercapnia 3. History of coronary artery disease with coronary artery bypass graft surgery 4. Status post atrial fibrillation rapid ventricular rate 5. Resolving encephalopathy toxic metabolic Plan 1. Decrease O2 as tolerated 2. PRN bilevel ventilation 3. Continue to continue cardiac recommendations 4. DVT GI prophylaxis Consider [facility] vs SNF. ? DC planning CHUCHO MALONEY MD, [facility] May 28, 2018 10:54
--- NOTE | 2018-05-28 15:08 | PN ---
DATE: 05/28/2018 SUBJECTIVE: The patient is seen alert, doing overall better. Appreciate Dr. Yen's input. As cl inically patient is improving, plan for discharge planning soon back to the long term facility. PHYSICAL EXAMINATION: VITAL SIGNS: Temperature 97.4, pulse 75, respirations 20, blood pressure 127/60, saturation 100% on 3 L nasal cannula. GENERAL: The patient remains frail, pale. CARDIOVASCULAR: S1, S2. LUNGS: Decreased bilaterally, otherwise clear. ABDOMEN: Soft, nontender. EXTREMITIES: No clubbing, cyanosis or edema. LABORATORY DATA: No new labs today. Labs on 05/27/2018 show a white count of 5.8, hemoglobin 9.9 an d platelet count of 130. Last glucose levels 101, 107, 139. BUN and creatinine were 30/1.33. CURRENT MEDICATIONS: Reviewed, include: 1. Lasix 20 mg daily. 2. Haldol 2 mg IV p.r.n. 3. Aspirin 81 mg daily. 4. Aspart per sliding scale. 5. Albuterol as directed. 6. Synthroid 137 mcg daily. 7. Lipitor 10 mg daily. 8. Allopurinol 200 mg daily. 9. Vitamin D 5000 daily. 10. Tobramycin ophthalmic b.i.d. 11. Hypoglycemia protocol. 12. Tylenol. 13. Zofran. 14. Protonix 40 IV daily. We can switch it to oral mode. ASSESSMENT AND PLAN: This is an 83-year-old male with history of vascular dementia, debili tated, atrial fibrillation, congestive heart failure, hypertension, hypothyroidism, diabetes mellitus , valvular heart disease, who presented with acute hypoxemic-hypercapnic respiratory failure, recentl y treated for Pseudomonas aeruginosa urinary tract infection and bacteremia, now overall improving. 1. Respiratory. Continue p.r.n. BiPAP. Continue O2 support, aspiration precautions. 2. Cardiovascular. Off digoxin and beta blockers. Vitals are stable. 3. Infectious disease. Currently off antibiotics. Finished a course of 2 weeks of IV antibiotics f or Pseudomonas aeruginosa bacteremia. 4. Physical therapy as tolerated. 5. Dysphagia. Continue mechanical chopped diet. 6. Hypothyroidism, on Synthroid. 7. Diabetes mellitus. Accu-Cheks are good in the low 100s. 8. Left testicular mass. Supportive care. 9. Continue Protonix for gastrointestinal prophylaxis. Transition to oral. 10. Anemia. No need for transfusion. 11. Diastolic dysfunction/heart failure. Continue Lasix. 12. Monitor fluid status. DISPOSITION: Likely tomorrow back to long term facility for further care. The patient is DNR. Dictated By: MAIN BARBOZA/MAMI Conf#: [id number] DID#: [id number]
--- NOTE | 2018-05-28 16:22 | CONS ---
Date/Time of Note Date/Time of Note DATE: 05/28/18 TIME: 16:20 Assessment/Plan Assessment/Plan Hospital Course ID PROGRESS NOTE CURRENT ABX: DAY # => OFF ABX s/p MERREM 24H INTERVAL SUMMARY * DC Planning -- pending TNS back to SNF --- Patient is stable on O2 via NC, no fevers, VSS, NAD, without dyspnea * 05/26/18 SWALLOW EVAL: 1. No evidence for aspiration.2. Please refer to swallowing therapist's recommendations for future feedings. MICRO * 05/17/18 (-)MRSA Nares PHYSICAL EXAMINATION: GENERAL: Afebrile, VSS, HEENT: AT, NC, anicteric NECK: Supple, trach CHEST: Equal chest rise bilaterally, without dyspnea on observation HEART: Pulse RRR ABDOMEN: Soft / NT EXTREMITIES: Warm, dry, SKIN: No rash, no diaphoresis ID ASSESSMENT 83 yo M admit with: 1. S/p symptomatic bradycardia 2. Acute on chronic respiratory failure, status post pneumonia 3. Status post Pseudomonas bacteremia, blood cultures since May 08 negative 4. Encephalopathy 5. Coronary artery disease with a history of CABG and valve replacement (-)MRSA Nares ABX ALLERGIES: NKDA INVASIVES: PI CURRENT ABX: DAY OFF ABX s/p MERREM ID RECOMMENDATIONS/PLAN: Continue to monitor OFF ABX Follow speech tx recommendations for aspiration precautions DC Planning -- pending TNS back to SNF . Result Diagram: 05/27/18 0458 05/27/18 0458 Results 24hrs Laboratory Tests Test 05/27/18 17:35 05/27/18 20:34 05/28/18 06:27 05/28/18 11:25 Bedside Glucose 105 139 107 101 Consultation Date/Type/Reason Admit Date/Time May 17, 2018 at 05:26 Initial Consult Date 05/17/18 Requesting Provider: MAIN LANG MD Exam/Review of Systems Vital Signs Vitals Vital Signs Date Temp Pulse Resp B/P (MAP) Pulse Ox O2 O2 Flow FiO2 Time Delivery Rate 05/28/18 73 16:00 05/28/18 98.3 20 112/59 100 15:40 (76) 05/28/18 Nasal 3.0 08:00 Cannula 05/27/18 30 02:23 Intake and Output 05/27/18 05/27/18 05/28/18 1515:00 23:00 07:00 IntakeIntake Total 850 ml 650 ml OutputOutput Total 1300 ml 1100 ml BalanceBalance -450 ml -450 ml Medications Medications Current Medications Acetaminophen (Tylenol Tab) 650 mg Q6H PRN PO MILD PAIN(1-3)OR ELEVATED TEMP; Start 05/17/18 at 06:30 Allopurinol (Zyloprim) 200 mg DAILY PO Last administered on 05/28/18 08:43; Ad min Dose 200 MG; Start 05/17/18 at 09:00 Atorvastatin Calcium (Lipitor) 10 mg HS PO Last administered on 05/27/18at 21:07; Admin Dose 10 MG; Start 05/17/18 at 21:00 Cholecalciferol (Vitamin D) 5,000 unit DAILY PO Last administered on 05/28/18 08:42; Admin Dose 5,000 UNIT; Start 05/17/18 at 09:00 Levothyroxine Sodium (Synthroid) 137 mcg DAILY@06 PO Last administered on 05/28/18 06:21; Admin Dose 137 MCG; Start 05/18/18 at 06:00 Ondansetron HCl (Zofran Inj) 4 mg Q4H PRN IV NAUSEA AND/OR VOMITING; Start 05/17/18 at 06:30 Tobramycin Sulfate (Tobrex 0.3% Oph Drop) 1 drop BID BOTH EYES Last administered on 05/28/18 08:42; Admin Dose 1 DROP; Start 05/17/18 at 09:00 Miscellaneous Information 1 ea NOTE XX ; Start 05/17/18 at 07:00 Glucose (Glutose) 15 gm Q15M PRN PO DECREASED GLUCOSE; Start 05/17/18 at 07:00 Glucose (Glutose) 22.5 gm Q15M PRN PO DECREASED GLUCOSE; Start 05/17/18 at 07:00 Dextrose (D50w Syringe) 25 ml Q15M PRN IV DECREASED GLUCOSE; Start 05/17/18 at 07:00 Dextrose (D50w Syringe) 50 ml Q15M PRN IV DECREASED GLUCOSE; Start 05/17/18 at 07:00 Glucagon (Glucagen) 1 mg Q15M PRN IM DECREASED GLUCOSE; Start 05/17/18 at 07:00 Glucose (Glutose) 15 gm Q15M PRN BUCCAL DECREASED GLUCOSE; Start 05/17/18 at 07:00 Albuterol (Proventil 0.083% (Neb)) 2.5 mg Q6H RESP THERAPY PRN HHN WHEEZING Last administered on 05/24/18at 17:22; Admin Dose 2.5 MG; Start 05/19/18 at 09:00 Insulin Aspart (Novolog Insulin Pen) (Adult SC Insulin - Mild Algorithm)... AC MEALS AND BEDTIME SC Last administered on 05/27/18at 11:56; Admin Dose 1 UNIT; Start 05/21/18 at 17:30 Aspirin (Aspirin) 81 mg DAILY PO Last administered on 05/28/18at 08:43; Admin Dose 81 MG; Start 05/22/18 at 10:30 Haloperidol (Haldol) 1 mg Q4H PRN IV Agitation; Start 05/23/18 at 00:30 Haloperidol (Haldol) 2 mg PRN PRN IV Agitation; Start 05/23/18 at 01:00 Furosemide (Lasix) 20 mg DAILY PO Last administered on 05/28/18at 06:22; Admin Dose 20 MG; Start 05/28/18 at 07:00 Pantoprazole (Protonix Tab) 40 mg DAILY@06 PO ; Start 05/29/18 at 06:00 RUSTY FERNANDEZ NP May 28, 2018 16:22
--- NOTE | 2018-05-28 17:46 | NUR ---
EOSS pt is alert x2, on 3L NC, saturating above 95%, stable turn q2 hours hourly rounding done wound dressing changed
[2018-05-28] MEDS: ATORVASTATIN 10 MG TAB PO SCH (21:30)
[2018-05-29] VITALS (9 sets, daily range): BP systolic 114–123; BP diastolic 56–69; PULSE 67–78; RESP 18–20
[2018-05-29] MEDS ORDERED: PANTOPRAZOLE (EC) 40 MG TAB PO SCH (06:00)
[2018-05-29] MEDS: Insulin NOVOLOG SS MILD Algorithm (SS with meals and bedtime) SC SCH ×2 (06:09→11:56)
[2018-05-29] MEDS: LEVOTHYROXINE 137 MCG TAB PO SCH (06:09)
--- NOTE | 2018-05-29 07:49 | CONS ---
Date/Time of Note Date/Time of Note DATE: 05/29/18 TIME: 07:48 Consult Date/Type/Reason Admit Date/Time May 17, 2018 at 05:26 Initial Consult Date 05/17/18 Type of Consultation: cv Requesting Provider: MAIN LANG MD Subjective cardiology follow up progress note S: Discussed with the staff on telemetry was reviewed. Patient remains in atrial fibrillation with controlled HR. no long pauses is seen overnight . Heart rate has been stable around 70 mostly no chest pain or pressure or syncope reported b PT IS off BIPAP NOW and on O2 no chestp ain or pressure Objective: General: Elderly looking gentleman. On O2 HEENT: NC/AT. Eyes are closed NECK:. no stridor. CV: Irregularly irregular systolic murmur; no gallop or rubs. PULM: no wheezing + rhonchi. GI: SOFT, NT, ND, no rebound or guarding Extremity: +B/L LE edema. no clubbing. neuro: awake and responds appropriately Psych: calm rectal: deferred : normal Derm: Multiple diffuse ecchymosis Echocardiogram done 05/14/2018 which was personally reviewed shows: There is severe enlargement of left atrium. There is mild enlargement of right atrium. Lower limits of normal systolic function. Normal left ventricular cavity size. Mild concentric left ventricular hypertrophy. Ejection fraction is visually estimated at 50-55 %. Moderate mitral leaflet calcification. Severe mitral annular calcification. Trace mitral regurgitation. Mild to moderate mitral stenosis. Mitral valve Max Velocity 2.40 m/sec. MaxPG 22.00 mmHg. MeanPG 7.00 mmHg. Aortic valve not well visualized. Aortic Valve Bio Prosthesis. Aortic valve Max velocity 2.55 m/sec. Max PG 26.00 mmHg. Mean PG 13.00 mmHg. Mild aortic valve regurgitation. Normal appearance of the tricuspid valve. Estimated peak PA systolic pressure 78 mmHg. There is moderate tricuspid regurgitation. Inferior vena cava without respiratory collapse, however, patient on ventilator. Normal pericardium with no significant pericardial effusion. Objective Vital Signs Date Temp Pulse Resp B/P (MAP) Pulse Ox O2 O2 Flow FiO2 Time Delivery Rate 05/29/18 72 04:00 05/29/18 97.6 20 116/69 98 03:45 (85) 05/28/18 3.0 21:00 05/28/18 Nasal 19:43 Cannula 05/27/18 30 02:23 Intake and Output 05/28/18 05/28/18 05/29/18 1515:00 23:00 07:00 IntakeIntake Total 600 ml 550 ml OutputOutput Total 1200 ml 1200 ml BalanceBalance -600 ml -650 ml Results/Medications Result Diagram: 05/27/18 0458 05/27/18 0458 Results 24 hrs Laboratory Tests Test 05/28/18 11:25 05/28/18 17:13 05/28/18 21:16 05/29/18 05:59 Bedside Glucose 101 134 150 112 Medications Current Medications Acetaminophen (Tylenol Tab) 650 mg Q6H PRN PO MILD PAIN(1-3)OR ELEVATED TEMP; Start 05/17/18 at 06:30 Allopurinol (Zyloprim) 200 mg DAILY PO Last administered on 05/28/18 08:43; Admin Dose 200 MG; Start 05/17/18 at 09:00 Atorvastatin Calcium (Lipitor) 10 mg HS PO Last administered on 05/28/18 21:30; Admin Dose 10 MG; Start 05/17/18 at 21:00 Cholecalciferol (Vitamin D) 5,000 unit DAILY PO Last administered on 05/28/18 08:42; Admin Dose 5,000 UNIT; Start 05/17/18 at 09:00 Levothyroxine Sodium (Synthroid) 137 mcg DAILY@06 PO Last administered on 05/29/18 06:09; Admin Dose 137 MCG; Start 05/18/18 at 06:00 Ondansetron HCl (Zofran Inj) 4 mg Q4H PRN IV NAUSEA AND/OR VOMITING; Start 05/17/18 at 06:30 Tobramycin Sulfate (Tobrex 0.3% Oph Drop) 1 drop BID BOTH EYES Last administered on 05/28/18 21:30; Admin Dose 1 DROP; Start 05/17/18 at 09:00 Miscellaneous Information 1 ea NOTE XX ; Start 05/17/18 at 07:00 Glucose (Glutose) 15 gm Q15M PRN PO DECREASED GLUCOSE; Start 05/17/18 at 07:00 Glucose (Glutose) 22.5 gm Q15M PRN PO DECREASED GLUCOSE; Start 05/17/18 at 07:00 Dextrose (D50w Syringe) 25 ml Q15M PRN IV DECREASED GLUCOSE; Start 05/17/18 at 07:00 Dextrose (D50w Syringe) 50 ml Q15M PRN IV DECREASED GLUCOSE; Start 05/17/18 at 07:00 Glucagon (Glucagen) 1 mg Q15M PRN IM DECREASED GLUCOSE; Start 05/17/18 at 07:00 Glucose (Glutose) 15 gm Q15M PRN BUCCAL DECREASED GLUCOSE; Start 05/17/18 at 0 7:00 Albuterol (Proventil 0.083% (Neb)) 2.5 mg Q6H RESP THERAPY PRN HHN WHEEZING Last administered on 05/24/18at 17:22; Admin Dose 2.5 MG; Start 05/19/18 at 09:00 Insulin Aspart (Novolog Insulin Pen) (Adult SC Insulin - Mild Algorithm)... AC MEALS AND BEDTIME SC Last administered on 05/27/18at 11:56; Admin Dose 1 UNIT; Start 05/21/18 at 17:30 Aspirin (Aspirin) 81 mg DAILY PO Last administered on 05/28/18at 08:43; Admin Dose 81 MG; Start 05/22/18 at 10:30 Haloperidol (Haldol) 1 mg Q4H PRN IV Agitation; Start 05/23/18 at 00:30 Haloperidol (Haldol) 2 mg PRN PRN IV Agitation; Start 05/23/18 at 01:00 Furosemide (Lasix) 20 mg DAILY PO Last administered on 05/28/18at 06:22; Admin Dose 20 MG; Start 05/28/18 at 07:00 Pantoprazole (Protonix Tab) 40 mg DAILY@06 PO Last administered on 05/29/18at 06:09; Admin Dose 40 MG; Start 05/29/18 at 06:00 Assessment/Plan Chief Complaint/Hosp Course 1. Atrial fibrillation with slow ventricular response and multiple pauses and with 1 long pause of more than 20 seconds which happened during the NG tube placement improved HR now 2. Hypercapnic respiratory failure 3. Status post Pseudomonas pneumonia and bacteremia 4. Encephalopathy 5. History of hypertension 6. History of possible coronary bypass graft 7. 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 Anemia 9. CHF pulm HTN, 10. pleural effusion Recommendations: Antibiotic management as per ID recommendation Supportive care and respiratory care as per pulmonary. HR has remained stable now off of dig and coreg diuresis as per pulm We will continue to monitor him closely. CODE STATUS is DNR now Thank you for his referral. SAMARIA AGUILAR MD [facility] SAMARIA AGUILAR MD May 29, 2018 07:49
[2018-05-29] MEDS: CHOLECALCIFEROL 1,000 UNIT TAB PO SCH (08:41)
[2018-05-29] MEDS: ASPIRIN 81 MG TAB PO SCH (08:41)
[2018-05-29] MEDS: FUROSEMIDE 20 MG TAB PO SCH (08:41)
[2018-05-29] MEDS: ALLOPURINOL 100 MG TAB PO SCH (08:41)
[2018-05-29] MEDS: TOBRAMYCIN 0.3% 5 ML OPH BOTH EYES SCH (08:42)
[2018-05-29] MEDS: BALSAM PERU/CASTOR OIL 60 GM TUBE TOP SCH (08:42)
--- NOTE | 2018-05-29 11:21 | CONS ---
Date/Time of Note Date/Time of Note DATE: 05/29/18 TIME: 11:20 Consult Date/Type/Reason Admit Date/Time May 17, 2018 at 05:26 Initial Consult Date 05/17/18 Type of Consultation: Pulmonary ICU Requesting Provider: MAIN LANG MD Subjective No significant changes remains stable. Objective Vital Signs Date Temp Pulse Resp B/P (MAP) Pulse Ox O2 O2 Flow FiO2 Time Delivery Rate 05/29/18 Nasal 3.0 08:45 Cannula 05/29/18 97.7 18 114/68 98 08:04 (83) 05/29/18 72 04:00 05/27/18 30 02:23 Intake and Output 05/28/18 05/28/18 05/29/18 1515:00 23:00 07:00 IntakeIntake Total 600 ml 550 ml OutputOutput Total 1200 ml 1200 ml BalanceBalance -600 ml -650 ml Exam GENERAL: Elderly appearing gentleman comfortable at rest no acute distress VITAL SIGNS: per chart NECK: Supple. No JVD or lymphadenopathy. CARDIAC EXAM: S1, S2. No added sounds or murmurs. CHEST: clear bilaterally, No added sounds, rales or wheezes ABDOMEN: Soft, nontender. No guarding or rebound. EXTREMITIES: No cyanosis, clubbing or edema. NEUROLOGIC: Generalized weakness. No focal deficits. Results/Medications Result Diagram: 05/27/188 05/27/18 0458 Results 24 hrs Laboratory Tests Test 05/28/18 11:25 05/28/18 17:13 05/28/18 21:16 05/29/18 05:59 Bedside Glucose 101 134 150 112 Medications Current Medications Acetaminophen (Tylenol Tab) 650 mg Q6H PRN PO MILD PAIN(1-3)OR ELEVATED TEMP; Start 05/17/18 at 06:30 Allopurinol (Zyloprim) 200 mg DAILY PO Last administered on 05/29/18at 08:41; Admin Dose 200 MG; Start 05/17/18 at 09:00 Atorvastatin Calcium (Lipitor) 10 mg HS PO Last administered on 05/28/18at 21:30; Admin Dose 10 MG; Start 05/17/18 at 21:00 Cholecalciferol (Vitamin D) 5,000 unit DAILY PO Last administered on 05/29/18at 08:41; Admin Dose 5,000 UNIT; Start 05/17/18 at 09:00 Levothyroxine Sodium (Synthroid) 137 mcg DAILY@06 PO Last administered on 05/29/18 06:09; Admin Dose 137 MCG; Start 05/18/18 at 06:00 Ondansetron HCl (Zofran Inj) 4 mg Q4H PRN IV NAUSEA AND/OR VOMITING; Start 05/17/18 at 06:30 Tobramycin Sulfate (Tobrex 0.3% Oph Drop) 1 drop BID BOTH EYES Last administered on 05/29/18 08:42; Admin Dose 1 DROP; Start 05/17/18 at 09:00 Miscellaneous Information 1 ea NOTE XX ; Start 05/17/18 at 07:00 Glucose (Glutose) 15 gm Q15M PRN PO DECREASED GLUCOSE; Start 05/17/18 at 07:00 Glucose (Glutose) 22.5 gm Q15M PRN PO DECREASED GLUCOSE; Start 05/17/18 at 07:00 Dextrose (D50w Syringe) 25 ml Q15M PRN IV DECREASED GLUCOSE; Start 05/17/18 at 07:00 Dextrose (D50w Syringe) 50 ml Q15M PRN IV DECREASED GLUCOSE; Start 05/17/18 at 07:00 Glucagon (Glucagen) 1 mg Q15M PRN IM DECREASED GLUCOSE; Start 05/17/18 at 07:00 Glucose (Glutose) 15 gm Q15M PRN BUCCAL DECREASED GLUCOSE; Start 05/17/18 at 07:00 Albuterol (Proventil 0.083% (Neb)) 2.5 mg Q6H RESP THERAPY PRN HHN WHEEZING Last administered on 05/24/18at 17:22; Admin Dose 2.5 MG; Start 05/19/18 at 09:00 Insulin Aspart (Novolog Insulin Pen) (Adult SC Insulin - Mild Algorithm)... AC MEALS AND BEDTIME SC Last administered on 05/27/18at 11:56; Admin Dose 1 UNIT; Start 05/21/18 at 17:30 Aspirin (Aspirin) 81 mg DAILY PO Last administered on 05/29/18 08:41; Admin Dose 81 MG; Start 05/22/18 at 10:30 Haloperidol (Haldol) 1 mg Q4H PRN IV Agitation; Start 05/23/18 at 00:30 Haloperidol (Haldol) 2 mg PRN PRN IV Agitation; Start 05/23/18 at 01:00 Furosemide (Lasix) 20 mg DAILY PO Last administered on 05/29/18at 08:41; Admin Dose 20 MG; Start 05/28/18 at 07:00 Pantoprazole (Protonix Tab) 40 mg DAILY@06 PO Last administered on 05/29/18at 06:09; Admin Dose 40 MG; Start 05/29/18 at 06:00 Assessment/Plan Chief Complaint/Hosp Course Assessment 1. Acute hypoxemic respiratory failure 2. History of underlying interstitial lung disease with chronic hypercapnia 3. History of coronary artery disease with coronary artery bypass graft surgery 4. Status post atrial fibrillation rapid ventricular rate 5. Resolving encephalopathy toxic metabolic Plan 1. Decrease O2 as tolerated 2. PRN bilevel ventilation 3. Continue to continue cardiac recommendations 4. DVT GI prophylaxis Consider [facility] vs SNF. ? DC planning [facility] MALONEY MD, [facility] May 29, 2018 11:21
--- NOTE | 2018-05-29 12:26 | PDOCDIS ---
Discharge Instructions CONDITION [id number] Patient Condition: [id number] Stable HOME CARE INSTRUCTIONS: [id number] Special Diet: [id number] PUREED NECTAR THICK LIQ. ACTIVITY: [id number] Activity Restrictions: [id number] Slowly Increase Activity FOLLOW UP/APPOINTMENTS Follow-up Plan [facility], see reconciliation MAIN LANG MD May 29, 2018 12:25
--- NOTE | 2018-05-29 13:32 | DS ---
DATE OF ADMISSION: 05/17/2018 DATE OF DISCHARGE: 05/29/2018 REASON FOR ADMISSION: Bradycardia, encephalopathy, ongoing respiratory failure. HOSPITAL COURSE: The patient is an 83-year-old debilitated man with history of vascular de mentia, mild atrial fibrillation, CHF, coronary artery disease, status post CABG, diabetes mellitus, hypertension, BPH, dyslipidemia, previously on Coumadin, previously admitted to [facility] with supratherapeutic INR and body ecchymosis. He was briefly discharged and came back to [facility] with ongoing respiratory failure. The patient was diagnosed with Pseudomonas aeruginosa UTI and bacteremia. He continued to have problem with breathing requiring oxygen and BiPAP. He was transfer red to [facility] when he continued his care, but remains lethargic, weak, requiring BiPAP and also became bradycardic. The patient was then transferred to the intensive care unit wher e he was briefly started on a dopamine drip due to bradycardia. Digoxin and beta blockers were disco ntinued. Dr. Richard, the cardiology, was consulted. The patient also was seen by Dr. Joiner, the in fectious disease specialist, Dr. Rodriguez, Dr. Yen, the luncheonette manager and Dr. Richard, the cardiologi st. Heart rate improved. We will continue to use BiPAP at night and p.r.n. Diet was advanced slowl y as the patient was seen by the speech therapist. Overall, the patient's mental status improved as well. The patient completed his course of antibiotics. Culture here was MRSA negative. The patient was also seen by the ethics committee. Case was discussed with his longtime friend. This patient w as made DNR per patient's overall wishes and he was okay in case the patient cannot make decision for his friend to make further decisions for him. This was discussed extensively. PHYSICAL EXAMINATION: GENERAL: The patient overall continues to improve, alert and able to eat. VITAL SIGNS: Saturation is adequate. Temperature 97.8, pulse 60, respirations 18, blood pressure 11 6/59, saturation 97% on 3 liters. DISPOSITION: The patient to be discharged to a jail facility at [facility] with the [facility] urgent care medications: 1. Tylenol 650 q.6 p.r.n. 2. Breathing treatments q.8 hours for 3 days. 3. Allopurinol daily. 4. Aspirin 81 mg daily. 5. Lipitor 10 mg at bedtime. 6. Venelex as directed. 7. Vitamin D 5000 daily. 8. Lasix 20 mg daily. 9. NovoLog per sliding scale. 10. Synthroid 137 mcg daily. 11. Treatment of hypoglycemia. 12. Zofran 4 mg p.o. q.6 p.r.n. 13. Protonix 40 mg daily. Discontinue Scott in 2 to 3 days. O2 to keep saturation greater than or equal to 90. Aspiration pre cautions. FINAL DIAGNOSES: 1. Acute respiratory failure. 2. Status post bacteremia, sepsis and urinary tract infection. 3. Status post aspiration pneumonia. 4. Dysphagia. 5. Atrial fibrillation. 6. Bradycardia. 7. Encephalopathy, likely toxic metabolic due to multi-factors including infection and respiratory c auses such as CO2 retention. 8. Coronary artery disease. 9. Mild dementia. 10. Congestive heart failure, on Lasix. 11. Hypothyroidism. 12. Status post coronary artery bypass graft. 13. Diabetes mellitus, controlled. 14. Hypertension. 15. Benign prostatic hypertrophy. 16. Dyslipidemia. 17. Gout. 18. Debilitated state, nonambulatory for many years. Overall, prognosis remains guarded. The patie nt is now DNR. 19. Anemia. DISPOSITION: The patient was discharged to [facility]. Also, we will remove his Scott. There i s some concern about urinary retention. DIET: Pureed diet. No solid diet, currently on soft diet per speech therapy. We will follow. Dictated By: MAIN BARBOZA/MAMI Conf#: [id number] DID#: [id number] CC: CHUCHO YEN MD;*End*
--- NOTE | 2018-05-29 13:40 | NUR ---
CM NOTE RECEIVED ORDER TO TRANSFER PT TO SNF, CALLED JIA AND MADE HER AWARE, CM ALSO SENT INQUIRY TO [facility].AMBULANCE ARRANGED WITH [facility] FOR TRANSFER AT [address] [facility] AND WITH A TRIP NUMBER OF [phone].SOFIA REYES UPDATED.
--- NOTE | 2018-05-29 14:21 | CONS ---
Date/Time of Note Date/Time of Note DATE: 05/29/18 TIME: 14:20 Assessment/Plan Assessment/Plan Hospital Course No acute changes overnight, patient is sleeping, looks comfortable, no fevers overnight Antimicrobials: none s/p Merrem Physical examination: This is a chronically ill-appearing well-developed fragile elderly man who is lethargic, comfortable on Bipap, in no distress. Head atraumatic normocephalic, sclera nonicteric. Neck is supple. Chest rise symmetrical, breath sounds diminished bases, heart: S1-S2. Abdomen distended soft bowel sounds present extremities with trace edema Assessment: 1. S/p symptomatic bradycardia 2. Acute on chronic respiratory failure, status post pneumonia 3. Status post Pseudomonas bacteremia, blood cultures since May 08 negative 4. Encephalopathy 5. Coronary artery disease with a history of CABG and valve replacement Plan: Remains stable off antibiotics, continue present care, aspiration precautions, follow pulmonary and cardiology recommendations, repeat cultures prn Result Diagram: 05/27/18 0458 05/27/18 0458 Results 24hrs Laboratory Tests Test 05/28/18 17:13 05/28/18 21:16 05/29/18 05:59 05/29/18 11:53 Bedside Glucose 134 150 112 176 Consultation Date/Type/Reason Admit Date/Time May 17, 2018 at 05:26 Initial Consult Date 05/17/18 Type of Consult id Requesting Provider: MAIN LANG MD Exam/Review of Systems Vital Signs Vitals Vital Signs Date Temp Pulse Resp B/P (MAP) Pulse Ox O2 O2 Flow FiO2 Time Delivery Rate 05/29/18 68 12:00 05/29/18 97.8 18 116/59 97 Nasal 11:23 (78) Cannula 05/29/18 3.0 08:45 05/27/18 30 02:23 Intake and Output 05/28/18 05/28/18 05/29/18 1515:00 23:00 07:00 IntakeIntake Total 600 ml 550 ml OutputOutput Total 1200 ml 1200 ml BalanceBalance -600 ml -650 ml Medications Medications Current Medications Acetaminophen (Tylenol Tab) 650 mg Q6H PRN PO MILD PAIN(1-3)OR ELEVATED TEMP; Start 05/17/18 at 06:30 Allopurinol (Zyloprim) 200 mg DAILY PO Last administered on 05/29/18at 08:41; Admin Dose 200 MG; Start 05/17/18 at 09:00 Atorvastatin Calcium (Lipitor) 10 mg HS PO Last administered on 05/28/18 21:30; Admin Dose 10 MG; Start 05/17/18 at 21:00 Cholecalciferol (Vitamin D) 5,000 unit DAILY PO Last administered on 05/29/18 08:41; Admin Dose 5,000 UNIT; Start 05/17/18 at 09:00 Levothyroxine Sodium (Synthroid) 137 mcg DAILY@06 PO Last administered on 05/29/18 06:09; Admin Dose 137 MCG; Start 05/18/18 at 06:00 Ondansetron HCl (Zofran Inj) 4 mg Q4H PRN IV NAUSEA AND/OR VOMITING; Start 05/17/18 at 06:30 Tobramycin Sulfate (Tobrex 0.3% Oph Drop) 1 drop BID BOTH EYES Last adm inistered on 05/29/18 08:42; Admin Dose 1 DROP; Start 05/17/18 at 09:00 Miscellaneous Information 1 ea NOTE XX ; Start 05/17/18 at 07:00 Glucose (Glutose) 15 gm Q15M PRN PO DECREASED GLUCOSE; Start 05/17/18 at 07:00 Glucose (Glutose) 22.5 gm Q15M PRN PO DECREASED GLUCOSE; Start 05/17/18 at 07: 00 Dextrose (D50w Syringe) 25 ml Q15M PRN IV DECREASED GLUCOSE; Start 05/17/18 at 07:00 Dextrose (D50w Syringe) 50 ml Q15M PRN IV DECREASED GLUCOSE; Start 05/17/18 at 07:00 Glucagon (Glucagen) 1 mg Q15M PRN IM DECREASED GLUCOSE; Start 05/17/18 at 07:00 Glucose (Glutose) 15 gm Q15M PRN BUCCAL DECREASED GLUCOSE; Start 05/17/18 at 07:00 Albuterol (Proventil 0.083% (Neb)) 2.5 mg Q6H RESP THERAPY PRN HHN WHEEZING Last administered on 05/24/18at 17:22; Admin Dose 2.5 MG; Start 05/19/18 at 09 :00 Insulin Aspart (Novolog Insulin Pen) (Adult SC Insulin - Mild Algorithm)... AC MEALS AND BEDTIME SC Last administered on 1/2/19at 11:56; Admin Dose 1 UNIT; Start 05/21/18 at 17:30 Aspirin (Aspirin) 81 mg DAILY PO Last administered on 05/29/18 08:41; Admin Dose 81 MG; Start 05/22/18 at 10:30 Haloperidol (Haldol) 1 mg Q4H PRN IV Agitation; Start 05/23/18 at 00:30 Haloperidol (Haldol) 2 mg PRN PRN IV Agitation; Start 05/23/18 at 01:00 Furosemide (Lasix) 20 mg DAILY PO Last administered on 05/29/18at 08:41; Admin Dose 20 MG; Start 05/28/18 at 07:00 Pantoprazole (Protonix Tab) 40 mg DAILY@06 PO Last administered on 05/29/18at 06:09; Admin Dose 40 MG; Start 05/29/18 at 06:00 KARINA LUNA NP May 29, 2018 14:21
--- NOTE | 2018-05-29 17:10 | NUR ---
Patient discharged to [facility]. Report was given to Penelope. Patient leaving in stable condition, VSS, denies pain or respiratory distress. pickers material handlers removed, IV removed. Scott remained in place as per order. All belongings returned. Called and informed Pat ([phone]).
== END 2018-05-29 17:05 | DRG 308 ==
LOC: ICU 05:26 → 6WM 05-20 18:40
PROVIDERS: ADMIT Internal Medicine; ATTEND Internal Medicine
DX: R00.1 Bradycardia, unspecified (principal); L89.153 Pressure ulcer of sacral region, stage 3; J96.22 Acute and chronic respiratory failure with hypercapnia; J18.9 Pneumonia, unspecified organism; J96.21 Acute and chronic respiratory failure with hypoxia; G92 Toxic encephalopathy; N39.0 Urinary tract infection, site not specified; J84.9 Interstitial pulmonary disease, unspecified; I50.30 Unspecified diastolic (congestive) heart failure; D64.9 Anemia, unspecified; E03.9 Hypothyroidism, unspecified; E11.9 Type 2 diabetes mellitus without complications; E78.5 Hyperlipidemia, unspecified; E86.0 Dehydration; F03.90 Unspecified dementia, unspecified severity, without behavioral disturbance, psychotic disturbance, mood disturbance, and anxiety; I25.10 Atherosclerotic heart disease of native coronary artery without angina pectoris; I48.91 Unspecified atrial fibrillation; I11.0 Hypertensive heart disease with heart failure; I27.20 Pulmonary hypertension, unspecified; M10.9 Gout, unspecified; N40.1 Benign prostatic hyperplasia with lower urinary tract symptoms; R33.8 Other retention of urine; R13.10 Dysphagia, unspecified; R53.81 Other malaise; Z66 Do not resuscitate; Z95.1 Presence of aortocoronary bypass graft; Z95.2 Presence of prosthetic heart valve
CPT/HCPCS: 36600; 71045; 74230; 80048; 80053; 80162; 82803; 82962; 83735; 84100; 85025; 87081; 92526; 92610; 92611; 94640; 94660; 94664; C9113; J1120; J1265; J1630; J1815; J1940; J2185; J7042